=== PATIENT | female | born 1945 | race Caucasian/White ===

== ENCOUNTER → 2017-08-23 | Outpatient (CLI) | payer MEDICARE, MEDICAID ==
[~2017-08-23] MED LIST: AVAPRO300 MG PO; BENICAR20 MG PO; CALCITRIOL0.25 MCG PO; CELEXA 20 MG TA20 MG PO; DIALYVITE V5000 UNIT PO; DOXYCYCLINE 10100 M1 PO; DOXYCYCLINE 10100 MG PO; FENOFIBRATE200 MG PO; JANUVIA25 MG PO; LABETALOL 100100 MG PO; LASIX 40 MG TAB40 M2 PO; LEVEMIR SUBQ; LIPITOR10 MG PO; MYFORTIC PO; MYFORTIC360 MG PO; NOVOLOG100 UNIT/1 SUBQ; PREDNISONE 10 M10 MG PO; RAPAMUNE1 MG PO; RAPAMUNE2 MG PO; RENVELA800 MG PO; ROCALTROL0.25 MCG PO; VENLAFAXIN75 MG/1 T2 PO; VITAMIN D1000 UNI1 PO; ZANTAC 150MG T150 M1 PO; ZETIA10 MG PO
[2017-08-23 09:41] LABS: HEMATOCRIT 31.7 % (37.0-47.0); HEMOGLOBIN 10.4 gm/dL (12.0-15.0)
[2017-08-23 09:54] LABS: ALBUMIN 3.3 g/dL (3.4-5.0); CALCIUM 8.7 mg/dL (8.5-10.1); CREATININE 1.9 mg/dL (0.6-1.3); MAGNESIUM 2.1 mg/dL (1.8-2.4); PHOSPHORUS* 3.5 mg/dL (2.5-4.9); POTASSIUM 3.6 mmol/L (3.5-5.1); TOTAL BILIRUBIN 0.3 mg/dL (<0.1-1.0); TOTAL PROTEIN 6.8 g/dL (6.4-8.2)
[2017-08-23 10:42] VITALS: BP 157/72
== END ==
LOC: M.INFUS 09:00
PROVIDERS: Internal Medicine Nephrology
DX: N18.4 Chronic kidney disease, stage 4 (severe) (principal); D63.1 Anemia in chronic kidney disease

== ENCOUNTER → 2017-09-14 | Outpatient (CLI) | payer MEDICARE, MEDICAID ==
[2017-09-14 09:00] VITALS: BP 160/71
--- NOTE | 2017-09-14 10:49 | NUR ---
ARRIVED PER WHEELCHAIR. STAYED IN WHEELCHAIR FOR APPOINTMENT. DAUGHTER AT CHAIRSIDE. DENEIS ADVERSE REACTION TO PRIOR INJECTION OF SAME. MONTHLY LAB RESULTS REVIEWED AND SAME DOSE LAST ONE GIVEN 7,500 GIVEN. INJECTION TOLERATED WELL. DENEIS NEEDS AT DISCHARGE.
== END ==
LOC: M.INFUS 02:50
DX: N18.4 Chronic kidney disease, stage 4 (severe) (principal); D63.1 Anemia in chronic kidney disease

== ENCOUNTER → 2017-10-25 | Outpatient (CLI) | payer MEDICARE, MEDICAID ==
--- NOTE | 2017-10-25 09:24 | NUR ---
ARRIVED PER W/CHAIR. ACCOMPANIED BY DAUGHTER. STAYED IN WHEELCHAIR FOR APPOINTMENT. DENIES ADVERSE REACTION TO PRIOR INJECTION OF SAME. LAB RESULTS COLLECTED AND REVIEWED. PT TO RECEIVE SAME DOSE LAST PROCRIT INJECTION 7,500 GIVEN. PROCRIT INJECTED INTO RIGHT BACK PART OF DELTOID. INJECTION TOLERATED WELL. DENIES NEEDS AT DISCHARGE.
[2017-10-25 09:30] VITALS: BP 160/66
[2017-10-25 09:50] LABS: HEMOGLOBIN 10.4 gm/dL (12.0-15.0)
[2017-10-25 10:11] LABS: ALBUMIN 3.3 g/dL (3.4-5.0); ALKALINE PHOSPHATASE 46 U/L (46-116); ANION GAP 11 mmol/L (7-16); BUN 70 mg/dL (7-18); CALCIUM 8.4 mg/dL (8.5-10.1); CHLORIDE 105 mmol/L (98-107); CHOLESTEROL 214 mg/dL (<200); CO2 25 mmol/L (21-32); CREATININE 2.3 mg/dL (0.6-1.3); GLUCOSE 236 mg/dL (70-99); HDL CHOLESTEROL 61 mg/dL (>40); LDL CHOLESTEROL 119 mg/dL (<100); MAGNESIUM 2.3 mg/dL (1.8-2.4); PHOSPHORUS* 4.1 mg/dL (2.5-4.9); POTASSIUM 3.9 mmol/L (3.5-5.1); SERUM ASSESSMENT Clear; SGOT 17 U/L (15-37); SGPT 21 U/L (30-65); SODIUM 141 mmol/L (136-145); TC:HDL 3.5 Ratio (Not establshd); TOTAL BILIRUBIN 0.3 mg/dL (<0.1-1.0); TOTAL PROTEIN 6.5 g/dL (6.4-8.2); TRIGLYCERIDE 173 mg/dL (<150); URIC ACID* 7.9 mg/dL (2.6-7.2); VLDL 35 mg/dL (<40)
[2017-10-25 10:21] LABS: % SATURATION 20 % (20-39); IRON 49 ug/dL (50-175)
[2017-10-25 17:13] LABS: eGFR IF AFRICAN AMERICAN 29 (>59)
[2017-10-25 19:08] LABS: GLYCOHEMOGLOBIN (HGB A1C) 8.5 % (4.8-5.6)
[2017-10-25 21:10] LABS: PARATHYROID HORMONE 127 pg/mL (15-65)
== END ==
LOC: M.INFUS 04:36
PROVIDERS: Internal Medicine Nephrology
DX: N18.4 Chronic kidney disease, stage 4 (severe) (principal); D63.1 Anemia in chronic kidney disease; E55.9 Vitamin D deficiency, unspecified; N25.81 Secondary hyperparathyroidism of renal origin; E09.9 Drug or chemical induced diabetes mellitus without complications; Z94.0 Kidney transplant status

== ENCOUNTER → 2017-11-15 | Outpatient (CLI) | payer MEDICARE, MEDICAID ==
[2017-11-15 09:32] VITALS: BP 151/70
--- NOTE | 2017-11-15 11:16 | NUR ---
ARRIVED PER WHEELCHAIR. MADE SELF COMFORTABLE. NO LABS NEED AT THIS TIME. INJECTION OF 7,500 UNITS INJECTED SQ TO LEFT UPPER ARM. TOLERATED WELL. ANGIE QUESTIONS OR NEEDS AT DISCHARGE.
== END ==
LOC: M.INFUS 06:01
DX: N18.4 Chronic kidney disease, stage 4 (severe) (principal); D63.1 Anemia in chronic kidney disease

== ENCOUNTER → 2017-12-07 | Outpatient (CLI) | payer MEDICARE, MEDICAID ==
[2017-12-07 09:36] VITALS: BP 134/88
[2017-12-07 10:20] LABS: HEMATOCRIT 32.9 % (37.0-47.0); HEMOGLOBIN 10.7 gm/dL (12.0-15.0)
[2017-12-07 10:33] LABS: ALBUMIN 3.3 g/dL (3.4-5.0); CALCIUM 9.2 mg/dL (8.5-10.1); CREATININE 2.1 mg/dL (0.6-1.3); MAGNESIUM 2.1 mg/dL (1.8-2.4); PHOSPHORUS* 3.9 mg/dL (2.5-4.9); TOTAL BILIRUBIN 0.3 mg/dL (<0.1-1.0); TOTAL PROTEIN 6.8 g/dL (6.4-8.2)
== END ==
LOC: M.INFUS 03:11
PROVIDERS: Internal Medicine Nephrology
DX: N18.4 Chronic kidney disease, stage 4 (severe) (principal); D63.1 Anemia in chronic kidney disease

== ENCOUNTER → 2017-12-28 | Outpatient (CLI) | payer MEDICARE, MEDICAID ==
[2017-12-28 09:55] VITALS: BP 127/65
--- NOTE | 2017-12-28 11:27 | NUR ---
ARRIVED PER WHEELCHAIR. STAYED IN WHEELCHAIR FOR INJECTION. DENIES ADVERSE REACTION TO PRIOR INJECTIONS OF SAME. NO LABS NEEDED CONTINUE SAME DOSE LAST ONE OF 7,500. INJECTION COMPLETED AND TOLERATED WELL. DENIES NEEDS AT DISCHARGE.
== END ==
LOC: M.INFUS 01:27
DX: N18.5 Chronic kidney disease, stage 5 (principal); D63.1 Anemia in chronic kidney disease

== ENCOUNTER → 2018-01-11 | Outpatient (CLI) | payer MEDICARE, MEDICAID ==
[2018-01-11 09:32] VITALS: BP 178/76
--- NOTE | 2018-01-11 09:40 | NUR ---
ARRIVED TO OUTPT INFUSION AREA VIA W/C PER FAMILY. SETTLED INTO ROOM. VS OBTAINED. TO BATHROOM VIA W/C, URINE SAMPLE COLLECTED PER PT. AWAITING LABS TO BE DRAWN.
[2018-01-11 09:59] LABS: HEMOGLOBIN 10.8 gm/dL (12.0-15.0)
[2018-01-11 10:12] LABS: ANION GAP 10 mmol/L (7-16); BUN 53 mg/dL (7-18); CALCIUM 8.7 mg/dL (8.5-10.1); CHLORIDE 105 mmol/L (98-107); CO2 28 mmol/L (21-32); CREATININE 2.1 mg/dL (0.6-1.3); GLUCOSE 123 mg/dL (70-99); POTASSIUM 3.5 mmol/L (3.5-5.1); SODIUM 143 mmol/L (136-145)
[2018-01-11 10:16] LABS: ALBUMIN 3.3 g/dL (3.4-5.0); ALKALINE PHOSPHATASE 40 U/L (46-116); CHOLESTEROL 203 mg/dL (<200); HDL CHOLESTEROL 57 mg/dL (>40); LDL CHOLESTEROL 119 mg/dL (<100); PHOSPHORUS* 3.7 mg/dL (2.5-4.9); SERUM ASSESSMENT Clear; SGOT 17 U/L (15-37); SGPT 18 U/L (30-65); TC:HDL 3.6 Ratio (Not establshd); TOTAL BILIRUBIN 0.3 mg/dL (<0.1-1.0); TOTAL PROTEIN 6.7 g/dL (6.4-8.2); TRIGLYCERIDE 135 mg/dL (<150); URIC ACID* 6.9 mg/dL (2.6-7.2); VLDL 27 mg/dL (<40)
[2018-01-11 10:26] LABS: % SATURATION 35 % (20-39); IRON 80 ug/dL (50-175)
--- NOTE | 2018-01-11 10:35 | NUR ---
LABS REVIEWED. PROCRIT ADMINISTERED TO RIGHT UPPER ARM WITHOUT DIFFICULTY. DISMISSED HOME IN GOOD CONDITION VIA W/C WITH FAMILY.
[2018-01-11 16:10] LABS: eGFR IF AFRICAN AMERICAN 29 (>59)
[2018-01-12 02:07] LABS: GLYCOHEMOGLOBIN (HGB A1C) 8.8 % (4.8-5.6)
[2018-01-12 13:10] LABS: PARATHYROID HORMONE 132 pg/mL (15-65)
== END ==
LOC: M.INFUS 06:02
PROVIDERS: Internal Medicine Nephrology
DX: N18.4 Chronic kidney disease, stage 4 (severe) (principal); D63.1 Anemia in chronic kidney disease; E55.9 Vitamin D deficiency, unspecified; E09.9 Drug or chemical induced diabetes mellitus without complications

== ENCOUNTER → 2018-01-31 | Outpatient (CLI) | payer MEDICARE, MEDICAID ==
[2018-01-31 09:33] LABS: HEMATOCRIT 31.8 % (37.0-47.0); HEMOGLOBIN 10.5 gm/dL (12.0-15.0)
[2018-01-31 09:52] LABS: CALCIUM 8.8 mg/dL (8.5-10.1); CREATININE 2.2 mg/dL (0.6-1.3); POTASSIUM 3.9 mmol/L (3.5-5.1)
[2018-01-31 09:55] VITALS: BP 172/68
[2018-01-31 09:56] LABS: ALBUMIN 3.1 g/dL (3.4-5.0); MAGNESIUM 2.2 mg/dL (1.8-2.4); PHOSPHORUS* 4.3 mg/dL (2.5-4.9); TOTAL BILIRUBIN 0.3 mg/dL (<0.1-1.0); TOTAL PROTEIN 6.5 g/dL (6.4-8.2)
--- NOTE | 2018-01-31 10:03 | NUR ---
PATIENT HERE FOR LABS/PROCRIT INJECTION. LABS DRAWN FOR MONTH. HGB 10.5. PROCRIT 7500 UNITS ADMINISTERED L UPPER ARM. SITE IS TENDER ON INJECTION BUT PATIENT TOLERATED WELL. DISCHARGED TO HOME WITH GREGOR.
== END ==
LOC: M.INFUS 05:57
PROVIDERS: Internal Medicine Nephrology
DX: N18.4 Chronic kidney disease, stage 4 (severe) (principal); D63.1 Anemia in chronic kidney disease; N25.81 Secondary hyperparathyroidism of renal origin; E55.9 Vitamin D deficiency, unspecified; E78.5 Hyperlipidemia, unspecified; E09.9 Drug or chemical induced diabetes mellitus without complications; Z94.0 Kidney transplant status

== ENCOUNTER → 2018-02-23 | Outpatient (CLI) | payer MEDICARE, MEDICAID ==
[2018-02-23 09:03] VITALS: BP 162/68
--- NOTE | 2018-02-23 09:03 | NUR ---
PT ARRIVED VIA W/CHAIR. ACCOMPANIED BY GRANDDAUGHTERS. HERE FOR PROCRIT INJECTION. LAST HBG WAS 10.5 ON 01/31/18. PT TO RECEIVE SAME DOSE OF PROCRIT 7500 UNITS IM INJECTION. PROCRIT 7500 UNITS ADMINISTERED TO LEFT UPPER ARM. SITE IS TENDER FROM INJECTION BUT PT TOLERATED WELL. DENIES NEEDS OR QUESTIONS AT DISCHARGE. DISCHARGE HOME TO SELF CARE WITH GRANDDAUGHTERS.
== END ==
LOC: M.INFUS 06:01
DX: N18.4 Chronic kidney disease, stage 4 (severe) (principal); D63.1 Anemia in chronic kidney disease

== ENCOUNTER → 2018-03-08 | Outpatient (CLI) | payer MEDICARE, MEDICAID ==
[2018-03-08 09:39] LABS: HEMATOCRIT 33.6 % (37.0-47.0)
[2018-03-08 09:57] LABS: ALBUMIN 3.1 g/dL (3.4-5.0); CALCIUM 8.8 mg/dL (8.5-10.1); CREATININE 2.4 mg/dL (0.6-1.3); MAGNESIUM 2.2 mg/dL (1.8-2.4); PHOSPHORUS* 4.3 mg/dL (2.5-4.9); POTASSIUM 3.8 mmol/L (3.5-5.1); TOTAL BILIRUBIN 0.3 mg/dL (<0.1-1.0); TOTAL PROTEIN 6.7 g/dL (6.4-8.2)
--- NOTE | 2018-03-08 10:49 | NUR ---
ARIVED PER WHEELCHAIR. STAYED IN WHEELCHAIR. MONTHLY LABS DRAW. LAB RESULTS EVALUATED AND HGB NOTED TO BE 11. PER STANDING ORDER PROCRIT HELD. PT UPDATED. VOICED UNDERSTANDING ADN AGREED. DENEIS QUESTIONS OR NEEDS AT DICHARGE.
== END ==
LOC: M.INFUS 03:44
PROVIDERS: Internal Medicine Nephrology
DX: N18.4 Chronic kidney disease, stage 4 (severe) (principal)

== ENCOUNTER → 2018-04-11 | Outpatient (CLI) | payer MEDICARE, MEDICAID ==
[2018-04-11 09:53] LABS: HEMATOCRIT 31.1 % (37.0-47.0); HEMOGLOBIN 10.3 gm/dL (12.0-15.0)
[2018-04-11 10:07] LABS: ALBUMIN 3.3 g/dL (3.4-5.0); ALKALINE PHOSPHATASE 36 U/L (46-116); ANION GAP 10 mmol/L (7-16); BUN 77 mg/dL (7-18); CALCIUM 8.1 mg/dL (8.5-10.1); CHLORIDE 105 mmol/L (98-107); CHOLESTEROL 204 mg/dL (<200); CO2 24 mmol/L (21-32); CREATININE 2.6 mg/dL (0.6-1.3); GLUCOSE 132 mg/dL (70-99); HDL CHOLESTEROL 58 mg/dL (>40); LDL CHOLESTEROL 123 mg/dL (<100); MAGNESIUM 2.1 mg/dL (1.8-2.4); PHOSPHORUS* 4.2 mg/dL (2.5-4.9); POTASSIUM 3.8 mmol/L (3.5-5.1); SGOT 18 U/L (15-37); SGPT 16 U/L (30-65); SODIUM 139 mmol/L (136-145); TC:HDL 3.5 Ratio (Not establshd); TOTAL BILIRUBIN 0.3 mg/dL (<0.1-1.0); TOTAL PROTEIN 6.8 g/dL (6.4-8.2); TRIGLYCERIDE 119 mg/dL (<150); VLDL 24 mg/dL (<40)
[2018-04-11 10:08] VITALS: BP 154/72
[2018-04-11 10:08] LABS: SERUM ASSESSMENT Clear
[2018-04-11 10:42] LABS: % SATURATION 34 % (20-39); IRON 84 ug/dL (50-175)
--- NOTE | 2018-04-11 13:31 | NUR ---
LABS DRAWN AND RESULTS EVALUATED. PER TITRATION ORDER SAME DOSE OF PROCRIT NEEDED WAS LAST GIVEN. INJECTION COMPLETED AND TOELRTATED WELL. 7,500 UNITS DENEIS NEEDS AT DISHCARGE.
[2018-04-11 17:12] LABS: eGFR IF AFRICAN AMERICAN 21 (>59)
[2018-04-12 02:06] LABS: GLYCOHEMOGLOBIN (HGB A1C) 8.2 % (4.8-5.6)
[2018-04-12 05:10] LABS: PARATHYROID HORMONE 137 pg/mL (15-65)
== END ==
LOC: M.INFUS 03:26
PROVIDERS: Internal Medicine Nephrology
DX: N18.4 Chronic kidney disease, stage 4 (severe) (principal); D63.1 Anemia in chronic kidney disease; E09.9 Drug or chemical induced diabetes mellitus without complications; E78.5 Hyperlipidemia, unspecified; E55.9 Vitamin D deficiency, unspecified; N25.81 Secondary hyperparathyroidism of renal origin; Z94.0 Kidney transplant status

== ENCOUNTER → 2018-05-09 | Outpatient (CLI) | payer MEDICARE, MEDICAID ==
[2018-05-09 09:23] LABS: HEMOGLOBIN 9.9 gm/dL (12.0-15.0)
[2018-05-09 09:58] LABS: ALBUMIN 3.2 g/dL (3.4-5.0); CALCIUM 8.3 mg/dL (8.5-10.1); CREATININE 2.4 mg/dL (0.6-1.3); PHOSPHORUS* 4.3 mg/dL (2.5-4.9); POTASSIUM 3.5 mmol/L (3.5-5.1); TOTAL BILIRUBIN 0.3 mg/dL (<0.1-1.0); TOTAL PROTEIN 6.7 g/dL (6.4-8.2)
[2018-05-09 10:01] VITALS: BP 132/84
--- NOTE | 2018-05-09 11:23 | NUR ---
DENIES ADVERSE REACTION TO PRIOR INJECTION OF THE SAME. LABS DRAWN AND EVALUATED. INJECTION COMPLETED AND TOLERATED WELL. DENIES NEEDS AT DISCHARGE.
== END ==
LOC: M.INFUS 05:11
PROVIDERS: Internal Medicine Nephrology
DX: N18.4 Chronic kidney disease, stage 4 (severe) (principal); D63.1 Anemia in chronic kidney disease

== ENCOUNTER → 2018-05-23 | Outpatient (CLI) | payer MEDICARE, MEDICAID ==
[2018-05-23 09:15] VITALS: BP 164/67
--- NOTE | 2018-05-23 11:45 | NUR ---
PATIENT GIVEN INECTION IN RIGHT ARM SUB-Q. TOLERATED WELL.
== END ==
LOC: M.INFUS 03:51
DX: N18.4 Chronic kidney disease, stage 4 (severe) (principal); D63.1 Anemia in chronic kidney disease

== ENCOUNTER → 2018-06-20 | Outpatient (CLI) | payer MEDICARE, MEDICAID ==
[2018-06-20 09:40] VITALS: BP 141/53
[2018-06-20 10:08] LABS: ALBUMIN 3.1 g/dL (3.4-5.0); ALKALINE PHOSPHATASE 41 U/L (46-116); ANION GAP 9 mmol/L (7-16); BUN 54 mg/dL (7-18); CALCIUM 8.8 mg/dL (8.5-10.1); CHLORIDE 106 mmol/L (98-107); CHOLESTEROL 202 mg/dL (<200); CO2 23 mmol/L (21-32); CREATININE 2.1 mg/dL (0.6-1.3); GLUCOSE 126 mg/dL (70-99); HDL CHOLESTEROL 64 mg/dL (>40); LDL CHOLESTEROL 114 mg/dL (<100); MAGNESIUM 2.1 mg/dL (1.8-2.4); POTASSIUM 3.6 mmol/L (3.5-5.1); SGOT 16 U/L (15-37); SGPT 18 U/L (30-65); SODIUM 138 mmol/L (136-145); TC:HDL 3.2 Ratio (Not establshd); TOTAL BILIRUBIN 0.3 mg/dL (<0.1-1.0); TOTAL PROTEIN 6.4 g/dL (6.4-8.2); TRIGLYCERIDE 124 mg/dL (<150); URIC ACID* 6.8 mg/dL (2.6-7.2); VLDL 25 mg/dL (<40)
[2018-06-20 10:13] LABS: SERUM ASSESSMENT Clear
[2018-06-20 10:36] LABS: % SATURATION 32 % (20-39); IRON 76 ug/dL (50-175)
--- NOTE | 2018-06-20 11:47 | NUR ---
ARRIVED PER WHEELCHAIR. STAYED IN WHEELCHAIR. MONTHLY LABS DRAWN. HGB RESULTS EVALUATED AND PER STANDING ORDER NEED TO INCREASE DOSE BY 25%. PT UDATED. VOICED UNDERSTANDING AND AGREED. INJECTEION OF 9,375 UNITS COMPLETED AND TOELRATED WELL. DENIES NEEDS AT DISHCARGE.
[2018-06-20 19:09] LABS: eGFR IF AFRICAN AMERICAN 28 (>59)
[2018-06-20 21:10] LABS: GLYCOHEMOGLOBIN (HGB A1C) 7.9 % (4.8-5.6)
[2018-06-21 09:12] LABS: PARATHYROID HORMONE 77 pg/mL (15-65)
== END ==
LOC: M.INFUS 02:08
PROVIDERS: Internal Medicine Nephrology
DX: N18.4 Chronic kidney disease, stage 4 (severe) (principal); D63.1 Anemia in chronic kidney disease; Z79.899 Other long term (current) drug therapy; Z94.0 Kidney transplant status

== ENCOUNTER → 2018-07-11 | Outpatient (CLI) | payer MEDICARE, MEDICAID ==
[2018-07-11 09:15] VITALS: BP 145/80
[2018-07-11 09:16] LABS: HEMATOCRIT 31.6 % (37.0-47.0); HEMOGLOBIN 10.2 gm/dL (12.0-15.0)
[2018-07-11 09:28] LABS: ALBUMIN 3.1 g/dL (3.4-5.0); CALCIUM 8.8 mg/dL (8.5-10.1); CREATININE 2.3 mg/dL (0.6-1.3); PHOSPHORUS* 4.4 mg/dL (2.5-4.9); POTASSIUM 3.8 mmol/L (3.5-5.1); TOTAL BILIRUBIN 0.3 mg/dL (<0.1-1.0); TOTAL PROTEIN 6.3 g/dL (6.4-8.2)
--- NOTE | 2018-07-11 10:09 | NUR ---
ARRIVED PER WHEELCHAIR. STAYED IN WHEELCHAIR. MONTHLY LABS DRAWN PER STANDING ORDER. RESULTS EVALUATED AND PT MEETS CRITERIA FOR INJECTION [place] PROCRIT 9,375 UNITS. INJECTION COMPLETED AND TOLERATED WELL. DENIES QUESTIONS OR NEEDS AT DISCHARGE.
== END ==
LOC: M.INFUS 04:56
PROVIDERS: Internal Medicine Nephrology
DX: N18.4 Chronic kidney disease, stage 4 (severe) (principal); D63.1 Anemia in chronic kidney disease

== ENCOUNTER → 2018-07-30 | Outpatient (CLI) | payer MEDICARE, MEDICAID ==
--- NOTE | 2018-07-30 09:15 | NUR ---
PATIENT ARRIVAL FROM HOME ACCOMPANIED BY GRANDDAUGHTER TO OP INFUSION LAB. HISTORY AND ORDERS REVIEWED. REASSESSMENT AND VS OBTAINED. CONTACTED DR. DAMON OFFICE AND SPOKE WITH OFFICE NURSE, ELLEN. REQUESTED TO CONTINUE CURRENT ORDERS FOR PROCRIT. ORDERS OBTAINED TO DRAW LABS FOR TODAY AND CALL OFFICE BACK WITH RESULTS.
[2018-07-30 09:25] VITALS: BP 164/86
[2018-07-30 09:41] LABS: HEMATOCRIT 31.7 % (37.0-47.0); HEMOGLOBIN 10.4 gm/dL (12.0-15.0)
[2018-07-30 09:50] LABS: ALBUMIN 3.2 g/dL (3.4-5.0); CREATININE 2.2 mg/dL (0.6-1.3); MAGNESIUM 2.2 mg/dL (1.8-2.4); PHOSPHORUS* 4.2 mg/dL (2.5-4.9); POTASSIUM 3.8 mmol/L (3.5-5.1); TOTAL BILIRUBIN 0.3 mg/dL (<0.1-1.0); TOTAL PROTEIN 6.4 g/dL (6.4-8.2)
--- NOTE | 2018-07-30 10:05 | NUR ---
LAB RESULTS FROM TODAYS DRAW FAXED TO DR. DAMON OFFICE. OFFICE THEN CALLED AND SPOKE WITH ELLEN. ORDERS RECEIVED TO CONTINUE LAST DOSE OF PROCRIT OF 9375UNITS. OFFICE NURSE STATES SHE WILL FAX NEW ORDERS TO US TODAY.
--- NOTE | 2018-07-30 10:18 | NUR ---
PROCRIT DOSE GIVEN ORDERED. PATIENT DEPARTS FOR HOME BY W/C WITH GRANDDAUGHTER AT 1018.
== END ==
LOC: M.INFUS 02:38
PROVIDERS: Internal Medicine Nephrology
DX: N18.4 Chronic kidney disease, stage 4 (severe) (principal); D63.1 Anemia in chronic kidney disease

== ENCOUNTER → 2018-08-23 | Outpatient (CLI) | payer MEDICARE, MEDICAID ==
[2018-08-23 10:11] LABS: ABSOLUTE BASOPHILS 0.1 thou/uL (0.0-0.2); ABSOLUTE EOSINOPHILS 0.2 thou/uL (0.0-0.7); ABSOLUTE LYMPHOCYTES 1.7 thou/uL (0.8-5.3); ABSOLUTE MONOCYTES 0.6 thou/uL (0.0-1.2); ABSOLUTE NEUTROPHILS 4.2 thou/uL (1.6-8.1); BASOPHILS 0.9 %; HEMOGLOBIN 10.1 gm/dL (12.0-15.0); LYMPHOCYTES 25.7 %; MCH 27.9 pg (26.0-34.0); MCHC 32.6 g/dL (28.0-37.0); MCV 85.6 fL (80.0-100.0); MONOCYTES 8.7 %; MPV 8.7 fl. (7.2-11.1); NUCLEATED RBCS 0 /100WBC; PLATELET COUNT* 272 thou/uL (150-400); POLYS 61.7 %; RBC 3.62 mil/uL (4.20-5.00); RDW-CV 14.4 % (10.5-14.5); WBC 6.8 thou/uL (4.0-11.0)
[2018-08-23 10:24] LABS: ALBUMIN 3.1 g/dL (3.4-5.0); CALCIUM 8.7 mg/dL (8.5-10.1); CREATININE 2.2 mg/dL (0.6-1.3); MAGNESIUM 2.1 mg/dL (1.8-2.4); PHOSPHORUS* 4.3 mg/dL (2.5-4.9); POTASSIUM 3.6 mmol/L (3.5-5.1); TOTAL BILIRUBIN 0.3 mg/dL (<0.1-1.0); TOTAL PROTEIN 6.3 g/dL (6.4-8.2)
[2018-08-23 10:30] VITALS: BP 141/82
--- NOTE | 2018-08-23 11:40 | NUR ---
ARRIVED PER WHEELCHAIR AND STAYED IN CHAIR. MONTHLY LABS DRAWN PER STANDING ORDER. RESULTS EVLUATED AND CRITERIA MET FOR PROCRIT INJECTION. PROCCRIT GIVEN AND TOLERATED WELL. DENIES ADVERSE REACTION TO PRIRO INJECTION OF SAME. DENEIS NEEDS OR QUESTIONS AT DISCHARGE.
== END ==
LOC: M.INFUS 09:30
PROVIDERS: Nurse Practitioner Family
DX: N18.4 Chronic kidney disease, stage 4 (severe) (principal); D63.1 Anemia in chronic kidney disease

== ENCOUNTER → 2018-09-13 | Outpatient (CLI) | payer MEDICARE, MEDICAID ==
[2018-09-13 08:35] VITALS: BP 172/70
--- NOTE | 2018-09-13 09:00 | NUR ---
DENEIS ADVERSE REACTION TO MULTIPLE PRIOR INJECTIONS OF SAME. INJECTION COMPLETED AND TOLERATED WELL. DENIES QUESTIONS OR NEEDS AT DISCHARGE.
== END ==
LOC: M.INFUS 05:14
DX: N18.4 Chronic kidney disease, stage 4 (severe) (principal); D63.1 Anemia in chronic kidney disease; Z79.899 Other long term (current) drug therapy; Z94.0 Kidney transplant status

== ENCOUNTER → 2018-10-11 | Outpatient (CLI) | payer MEDICARE, MEDICAID ==
[2018-10-11 09:15] VITALS: BP 132/75
[2018-10-11 09:18] LABS: ABSOLUTE EOSINOPHILS 0.3 thou/uL (0.0-0.7); ABSOLUTE LYMPHOCYTES 1.6 thou/uL (0.8-5.3); ABSOLUTE MONOCYTES 0.6 thou/uL (0.0-1.2); ABSOLUTE NEUTROPHILS 5.4 thou/uL (1.6-8.1); BASOPHILS 0.5 %; EOSINOPHILS 3.6 %; HEMATOCRIT 30.8 % (37.0-47.0); HEMOGLOBIN 10.6 gm/dL (12.0-15.0); LYMPHOCYTES 20.3 %; MCH 29.1 pg (26.0-34.0); MCHC 34.4 g/dL (28.0-37.0); MCV 84.6 fL (80.0-100.0); MONOCYTES 7.9 %; MPV 9.3 fl. (7.2-11.1); NUCLEATED RBCS 0 /100WBC; PLATELET COUNT* 267 thou/uL (150-400); POLYS 67.7 %; RBC 3.64 mil/uL (4.20-5.00); RDW-CV 13.9 % (10.5-14.5); WBC 7.9 thou/uL (4.0-11.0)
[2018-10-11 09:33] LABS: CALCIUM 8.9 mg/dL (8.5-10.1); CREATININE 2.8 mg/dL (0.6-1.3); TOTAL BILIRUBIN 0.3 mg/dL (<0.1-1.0); TOTAL PROTEIN 6.7 g/dL (6.4-8.2)
== END ==
LOC: M.INFUS 05:02
PROVIDERS: Transplant Surgery
DX: N18.4 Chronic kidney disease, stage 4 (severe) (principal); D63.1 Anemia in chronic kidney disease; Z79.899 Other long term (current) drug therapy; Z94.0 Kidney transplant status

== ENCOUNTER → 2018-10-31 | Outpatient (CLI) | payer MEDICARE, MEDICAID ==
[2018-10-31 09:20] VITALS: BP 142/74
== END ==
LOC: M.INFUS 05:29
DX: N18.4 Chronic kidney disease, stage 4 (severe) (principal); D63.1 Anemia in chronic kidney disease

== ENCOUNTER → 2018-11-21 | Outpatient (CLI) | payer MEDICARE, MEDICAID ==
[2018-11-21 09:15] VITALS: BP 153/70
[2018-11-21 09:37] LABS: HEMOGLOBIN 9.8 gm/dL (12.0-15.0)
[2018-11-21 09:54] LABS: ALBUMIN 3.2 g/dL (3.4-5.0); CALCIUM 8.6 mg/dL (8.5-10.1); CREATININE 2.4 mg/dL (0.6-1.3); PHOSPHORUS* 4.1 mg/dL (2.5-4.9); POTASSIUM 3.7 mmol/L (3.5-5.1); TOTAL BILIRUBIN 0.3 mg/dL (<0.1-1.0); TOTAL PROTEIN 6.5 g/dL (6.4-8.2)
[2018-11-21 10:30] VITALS: BP 148/66
== END ==
LOC: M.INFUS 05:40
PROVIDERS: Internal Medicine Nephrology
DX: N18.4 Chronic kidney disease, stage 4 (severe) (principal); D63.1 Anemia in chronic kidney disease

== ENCOUNTER → 2018-12-13 | Outpatient (CLI) | payer MEDICARE, MEDICAID ==
[2018-12-13 09:50] VITALS: BP 151/69
== END ==
LOC: M.INFUS 04:37
DX: D63.1 Anemia in chronic kidney disease (principal); N18.4 Chronic kidney disease, stage 4 (severe)

== ENCOUNTER → 2019-01-02 | Outpatient (CLI) | payer MEDICARE, MEDICAID ==
[2019-01-02 09:20] VITALS: BP 132/71
[2019-01-02 10:21] LABS: HEMATOCRIT 31.9 % (37.0-47.0); HEMOGLOBIN 10.4 gm/dL (12.0-15.0); MCH 27.4 pg (26.0-34.0); MCHC 32.6 g/dL (28.0-37.0); RBC 3.8 mil/uL (4.20-5.00); RDW-CV 14.5 % (10.5-14.5); WBC 6.3 thou/uL (4.0-11.0)
[2019-01-02 10:28] LABS: ALBUMIN 3.3 g/dL (3.4-5.0); CALCIUM 9.1 mg/dL (8.5-10.1); CREATININE 2.3 mg/dL (0.6-1.3); MAGNESIUM 2.1 mg/dL (1.8-2.4); PHOSPHORUS* 4.5 mg/dL (2.5-4.9); POTASSIUM 3.6 mmol/L (3.5-5.1); TOTAL BILIRUBIN 0.3 mg/dL (<0.1-1.0); TOTAL PROTEIN 6.7 g/dL (6.4-8.2)
== END ==
LOC: M.INFUS 05:33
PROVIDERS: Internal Medicine Nephrology
DX: N18.4 Chronic kidney disease, stage 4 (severe) (principal); D63.1 Anemia in chronic kidney disease

== ENCOUNTER → 2019-01-30 | Outpatient (CLI) | payer MEDICARE, MEDICAID ==
[2019-01-30 09:05] VITALS: BP 165/75
[2019-01-30 09:33] LABS: HEMATOCRIT 31.6 % (37.0-47.0); HEMOGLOBIN 10.4 gm/dL (12.0-15.0)
[2019-01-30 09:58] VITALS: BP 156/70
== END ==
LOC: M.INFUS 05:20
PROVIDERS: Internal Medicine Nephrology
DX: N18.4 Chronic kidney disease, stage 4 (severe) (principal); D63.1 Anemia in chronic kidney disease

== ENCOUNTER → 2019-02-22 | Outpatient (CLI) | payer MEDICARE, MEDICAID ==
[2019-02-22 09:15] VITALS: BP 132/78
--- NOTE | 2019-02-22 10:21 | NUR ---
ARRIVED PER WHEELCHAIR. STAYED IN WHEELCHAIR WHILE HERE. NOT DURE FOR LABS YET. SAME DOSE LAST GIVED OF 12,000 UNITS GIVEN CONTINUED TODAY PER STANDING ORDER. SUB CUTANEOUS INJECTION COMPLETED AND TOLERATED WELL. DENIES QUESTIONS OR NEEDS AT DISCHARGE.
== END ==
LOC: M.INFUS 00:50
DX: N18.4 Chronic kidney disease, stage 4 (severe) (principal); D63.1 Anemia in chronic kidney disease

== ENCOUNTER → 2019-03-21 | Outpatient (CLI) | payer MEDICARE, MEDICAID ==
[2019-03-21 09:53] LABS: HEMATOCRIT 30.6 % (37.0-47.0); HEMOGLOBIN 9.9 gm/dL (12.0-15.0); MCH 26.6 pg (26.0-34.0); MCHC 32.2 g/dL (28.0-37.0); MCV 82.6 fL (80.0-100.0); RBC 3.7 mil/uL (4.20-5.00); RDW-CV 14.8 % (10.5-14.5); WBC 5.8 thou/uL (4.0-11.0)
[2019-03-21 10:00] VITALS: BP 132/84
[2019-03-21 10:02] LABS: ALBUMIN 3.2 g/dL (3.4-5.0); CALCIUM 8.6 mg/dL (8.5-10.1); CREATININE 2.6 mg/dL (0.6-1.3); MAGNESIUM 2.3 mg/dL (1.8-2.4); PHOSPHORUS* 4.6 mg/dL (2.5-4.9); POTASSIUM 3.8 mmol/L (3.5-5.1); TOTAL BILIRUBIN 0.3 mg/dL (<0.1-1.0); TOTAL PROTEIN 6.7 g/dL (6.4-8.2)
--- NOTE | 2019-03-21 10:20 | NUR ---
ARRIVED PER WHEELCHAIR. STAYED IN WHEELCHAIR FOR VISIT. LABS DRAWN AND RESULTS EVALUATED. HGB 9.9, PER STANDING ORDER CONTINUE SAME DOSE LAST GIVEN OF 12,000 UNITS. LAST INJECTION ON 02/22/19 WAS TAKEN INTO CONCIDERATION WITH DOSING. TOLERATED SUB Q INJECTION WELL. ANGIE QUESTIONS OR NEEDS AT DISCHARGE.
== END ==
LOC: M.INFUS 05:18
PROVIDERS: Internal Medicine
DX: N18.4 Chronic kidney disease, stage 4 (severe) (principal); D63.1 Anemia in chronic kidney disease

== ENCOUNTER → 2019-04-17 | Outpatient (CLI) | payer MEDICARE, MEDICAID ==
[2019-04-17 09:47] LABS: CHOLESTEROL 165 mg/dL (<200); HDL CHOLESTEROL 55 mg/dL (>40); LDL CHOLESTEROL 82 mg/dL (<100); TRIGLYCERIDE 142 mg/dL (<150); VLDL 28 mg/dL (<40)
[2019-04-17 09:48] LABS: SERUM ASSESSMENT Clear
[2019-04-17 10:20] VITALS: BP 132/75
== END ==
LOC: M.INFUS 05:24
PROVIDERS: Internal Medicine
DX: N18.4 Chronic kidney disease, stage 4 (severe) (principal); D63.1 Anemia in chronic kidney disease

== ENCOUNTER → 2019-05-06 | Outpatient (CLI) | payer MEDICARE, MEDICAID ==
[2019-05-06 08:55] VITALS: BP 163/89
--- NOTE | 2019-05-06 10:03 | NUR ---
ARRIVED PER WHEELCHAIR. STAYED IN CHAIR. LAST VISIT PT WAS UNABLE TO PROVIDE ORDERED URINE SAMPLE. IT WAS COLLECTED TODAY. NO OTHER LABS NEEDED. INJECTION OF SAME DOSE LAST GIVEN 12,000 UNITS COMPLETED AND TOLERATED WELL. DENIES NEEDS AT DISCHARGE.
== END ==
LOC: M.INFUS 01:55
DX: N18.4 Chronic kidney disease, stage 4 (severe) (principal); D63.1 Anemia in chronic kidney disease; Z79.899 Other long term (current) drug therapy; Z94.0 Kidney transplant status

== ENCOUNTER → 2019-05-22 | Outpatient (CLI) | payer MEDICARE, MEDICAID ==
[2019-05-22 09:00] VITALS: BP 166/69
[2019-05-22 09:06] LABS: ABSOLUTE BASOPHILS 0.1 thou/uL (0.0-0.2); ABSOLUTE EOSINOPHILS 0.2 thou/uL (0.0-0.7); ABSOLUTE LYMPHOCYTES 1.8 thou/uL (0.8-5.3); ABSOLUTE MONOCYTES 0.5 thou/uL (0.0-1.2); BASOPHILS 0.9 %; EOSINOPHILS 3.1 %; HEMATOCRIT 29.9 % (37.0-47.0); HEMOGLOBIN 9.8 gm/dL (12.0-15.0); LYMPHOCYTES 31.7 %; MCH 28.1 pg (26.0-34.0); MCV 85.2 fL (80.0-100.0); MONOCYTES 9.9 %; MPV 8.2 fl. (7.2-11.1); NUCLEATED RBCS 0 /100WBC; PLATELET COUNT* 223 thou/uL (150-400); POLYS 54.4 %; RDW-CV 15.2 % (10.5-14.5); WBC 5.5 thou/uL (4.0-11.0)
[2019-05-22 09:21] LABS: ALBUMIN 3.3 g/dL (3.4-5.0); CALCIUM 8.7 mg/dL (8.5-10.1); CREATININE 2.6 mg/dL (0.6-1.3); MAGNESIUM 2.1 mg/dL (1.8-2.4); PHOSPHORUS* 4.1 mg/dL (2.5-4.9); POTASSIUM 3.8 mmol/L (3.5-5.1); TOTAL BILIRUBIN 0.3 mg/dL (<0.1-1.0); TOTAL PROTEIN 6.5 g/dL (6.4-8.2)
--- NOTE | 2019-05-22 10:12 | NUR ---
ARRIVED PER WHEELCHAIR AND STAYED IN WHEELCHAIR FOR VISIT. DEBBY WITH HER. EVERY OTHER MONTH LABS DRAWN. RESULTS EVALUATED AND CRITERIA MET FOR INJECTION. PT REQUEST NOT TO INCREASE DOSE WITH LAB BEING 9.8. INJECTION COMPLETED AND TOLERATED WELL. DENIES NEEDS AT DISCHARGE.
== END ==
LOC: M.INFUS 04:48
PROVIDERS: Internal Medicine
DX: N18.4 Chronic kidney disease, stage 4 (severe) (principal); D63.1 Anemia in chronic kidney disease

== ENCOUNTER → 2019-06-07 | Outpatient (CLI) | payer MEDICARE, MEDICAID ==
[2019-06-07 09:10] VITALS: BP 132/74
--- NOTE | 2019-06-07 09:52 | NUR ---
ARRIVED PER WHEELCHAIR. STAYED IN WHEELCHAIR. MONTHLY LABS REVIEWED FROM 05/22/19. CONTINE SAME DOSE OF PROCRIT. INJECTION COMPLETED AND TOELRATED WELL. DENIES QUESTIONS OR NEEDS AT DISCHARGE.
== END ==
LOC: M.INFUS 06-05 09:30
DX: N18.4 Chronic kidney disease, stage 4 (severe) (principal); D63.1 Anemia in chronic kidney disease

== ENCOUNTER → 2019-06-26 | Outpatient (CLI) | payer MEDICARE, MEDICAID ==
[2019-06-26 09:30] VITALS: BP 176/68
[2019-06-26 09:46] LABS: CALCIUM 8.6 mg/dL (8.5-10.1); CREATININE 2.5 mg/dL (0.6-1.3); PHOSPHORUS* 4.9 mg/dL (2.5-4.9)
== END ==
LOC: M.INFUS 03:23
PROVIDERS: Internal Medicine Nephrology
DX: N18.4 Chronic kidney disease, stage 4 (severe) (principal); D63.1 Anemia in chronic kidney disease; N25.81 Secondary hyperparathyroidism of renal origin

== ENCOUNTER → 2019-07-17 | Outpatient (CLI) | payer MEDICARE, MEDICAID ==
[2019-07-17 08:50] VITALS: BP 163/87
--- NOTE | 2019-07-17 11:49 | NUR ---
ARRIVED PER WHEELCHAIR. NO LABS NEEDED PER STANDING ORDER. INJECTION COMPLETED AND TOLERATED WELL. DENIES QUESTIONS OR NEEDS AT DISCHARGE.
== END ==
LOC: M.INFUS 05:38
DX: N18.4 Chronic kidney disease, stage 4 (severe) (principal); D63.1 Anemia in chronic kidney disease; N25.81 Secondary hyperparathyroidism of renal origin

== ENCOUNTER → 2019-08-02 | Outpatient (CLI) | payer MEDICARE, MEDICAID ==
[2019-08-02 08:50] VITALS: BP 166/77
[2019-08-02 10:10] VITALS: BP 148/68
== END ==
LOC: M.INFUS 05:17
DX: N18.4 Chronic kidney disease, stage 4 (severe) (principal); D63.1 Anemia in chronic kidney disease

== ENCOUNTER → 2019-08-29 | Outpatient (CLI) | payer MEDICARE, MEDICAID ==
[2019-08-29 09:15] VITALS: BP 124/68
[2019-08-29 09:44] LABS: ABSOLUTE BASOPHILS 0.1 thou/uL (0.0-0.2); ABSOLUTE EOSINOPHILS 0.3 thou/uL (0.0-0.7); ABSOLUTE LYMPHOCYTES 1.6 thou/uL (0.8-5.3); ABSOLUTE MONOCYTES 0.4 thou/uL (0.0-1.2); BASOPHILS 1.1 %; EOSINOPHILS 3.5 %; HEMOGLOBIN 10.1 gm/dL (12.0-15.0); MCH 27.4 pg (26.0-34.0); MCHC 32.8 g/dL (28.0-37.0); MCV 83.7 fL (80.0-100.0); MONOCYTES 5.3 %; NUCLEATED RBCS 0 /100WBC; PLATELET COUNT* 222 thou/uL (150-400); POLYS 68.1 %; RDW-CV 15.8 % (10.5-14.5); WBC 7.3 thou/uL (4.0-11.0)
[2019-08-29 09:57] LABS: ALBUMIN 3.2 g/dL (3.4-5.0); ALKALINE PHOSPHATASE 49 U/L (46-116); ANION GAP 9 mmol/L (7-16); BUN 80 mg/dL (7-18); CALCIUM 7.9 mg/dL (8.5-10.1); CHLORIDE 106 mmol/L (98-107); CHOLESTEROL 188 mg/dL (<200); CO2 26 mmol/L (21-32); CREATININE 2.6 mg/dL (0.6-1.3); GLUCOSE 109 mg/dL (70-99); HDL CHOLESTEROL 54 mg/dL (>40); LDL CHOLESTEROL 103 mg/dL (<100); PHOSPHORUS* 4.5 mg/dL (2.5-4.9); POTASSIUM 4.5 mmol/L (3.5-5.1); SGOT 21 U/L (15-37); SGPT 23 U/L (30-65); SODIUM 141 mmol/L (136-145); TC:HDL 3.5 Ratio (Not establshd); TOTAL BILIRUBIN 0.3 mg/dL (<0.1-1.0); TOTAL PROTEIN 6.4 g/dL (6.4-8.2); TRIGLYCERIDE 157 mg/dL (<150); VLDL 31 mg/dL (<40)
[2019-08-29 09:58] LABS: SERUM ASSESSMENT Clear
--- NOTE | 2019-08-29 10:28 | NUR ---
ARRIVED PER WHEELCHAIR AND REMAINED IN WHEELCHAIR. LABS DRAWN ANDRESULTS EVALUATED. CRITERIA MET FOR PROCRIT INJECTION. INJECTION COMPLETED AND TOELRATED WELL. DENIES QUESTIONS OR NEEDS AT DISCHARGE.
== END ==
LOC: M.INFUS 09:00
PROVIDERS: Internal Medicine
DX: N18.4 Chronic kidney disease, stage 4 (severe) (principal); D63.1 Anemia in chronic kidney disease

== ENCOUNTER → 2019-09-17 | Outpatient (CLI) | payer MEDICARE, MEDICAID ==
[2019-09-17 09:10] VITALS: BP 135/74
== END ==
LOC: M.INFUS 03:38
DX: N18.4 Chronic kidney disease, stage 4 (severe) (principal); D63.1 Anemia in chronic kidney disease

== ENCOUNTER → 2019-10-11 | Outpatient (CLI) | payer MEDICARE, MEDICAID ==
[2019-10-11 10:15] VITALS: BP 158/82
== END ==
LOC: M.INFUS 03:33
DX: N18.4 Chronic kidney disease, stage 4 (severe) (principal); D63.1 Anemia in chronic kidney disease

== ENCOUNTER → 2019-11-29 | Outpatient (CLI) | payer MEDICARE, MEDICAID ==
[2019-11-29 10:14] LABS: ABSOLUTE EOSINOPHILS 0.2 thou/uL (0.0-0.7); ABSOLUTE LYMPHOCYTES 1.7 thou/uL (0.8-5.3); ABSOLUTE MONOCYTES 0.5 thou/uL (0.0-1.2); ABSOLUTE NEUTROPHILS 3.6 thou/uL (1.6-8.1); BASOPHILS 0.6 %; EOSINOPHILS 2.6 %; HEMATOCRIT 29.6 % (37.0-47.0); LYMPHOCYTES 28.9 %; MCH 28.1 pg (26.0-34.0); MCHC 33.7 g/dL (28.0-37.0); MCV 83.5 fL (80.0-100.0); MONOCYTES 8.1 %; MPV 8.6 fl. (7.2-11.1); NUCLEATED RBCS 0 /100WBC; PLATELET COUNT* 238 thou/uL (150-400); POLYS 59.8 %; RBC 3.54 mil/uL (4.20-5.00); RDW-CV 14.5 % (10.5-14.5)
[2019-11-29 10:30] VITALS: BP 132/78
[2019-11-29 10:40] LABS: ALBUMIN 3.4 g/dL (3.4-5.0); CALCIUM 8.1 mg/dL (8.5-10.1); CREATININE 2.6 mg/dL (0.6-1.3); PHOSPHORUS* 4.9 mg/dL (2.5-4.9); POTASSIUM 3.8 mmol/L (3.5-5.1); TOTAL BILIRUBIN 0.3 mg/dL (<0.1-1.0); TOTAL PROTEIN 6.8 g/dL (6.4-8.2)
== END ==
LOC: M.INFUS 11-14 09:30
PROVIDERS: Internal Medicine
DX: N18.4 Chronic kidney disease, stage 4 (severe) (principal); D63.1 Anemia in chronic kidney disease

== ENCOUNTER → 2019-12-18 | Outpatient (CLI) | payer MEDICARE, MEDICAID ==
[2019-12-18 09:15] VITALS: BP 173/101
== END ==
LOC: M.INFUS 03:22
DX: N18.4 Chronic kidney disease, stage 4 (severe) (principal); D63.1 Anemia in chronic kidney disease

== ENCOUNTER → 2020-01-21 | Outpatient (CLI) | payer MEDICARE, MEDICAID ==
[2020-01-21 09:40] LABS: HEMATOCRIT 30.3 % (37.0-47.0); MCH 27.9 pg (26.0-34.0); MCHC 32.9 g/dL (28.0-37.0); MCV 84.7 fL (80.0-100.0); RBC 3.58 mil/uL (4.20-5.00); RDW-CV 14.8 % (10.5-14.5); WBC 7.7 thou/uL (4.0-11.0)
[2020-01-21 10:00] VITALS: BP 148/84
[2020-01-21 10:03] LABS: ALBUMIN 3.2 g/dL (3.4-5.0); CALCIUM 8.2 mg/dL (8.5-10.1); MAGNESIUM 2.2 mg/dL (1.8-2.4); PHOSPHORUS* 4.9 mg/dL (2.5-4.9); POTASSIUM 4.3 mmol/L (3.5-5.1); TOTAL BILIRUBIN 0.3 mg/dL (<0.1-1.0); TOTAL PROTEIN 6.7 g/dL (6.4-8.2)
--- NOTE | 2020-01-21 10:45 | NUR ---
ARRIVED PER WHEELCHAIR. STAYED IN WHEELCHAIR FOR VISIT. LABS DRAWN PER ORDER. PT UNAABLE TO PROVIDE URINE SAMPLE SO PT SENT HOME WITH HAT AND LABLED SPECIME CUP WITH INSTRUCTION TO COLLECT SAMPLE AND RETURN IT TO LAB. YEFRI IN LAB NOTIFIED AND UPDATED. LAB RESULTS EVALUATED AND PT MEETS GRACIELA FOR INJECTION OR PROCRIT TODAY. INJECTION COMPLETED AND TOLERATED WELL. DENIES QUESTIONS OR NEEDS AT DISCHARGE.
== END ==
LOC: M.INFUS 04:56
PROVIDERS: Internal Medicine
DX: N18.4 Chronic kidney disease, stage 4 (severe) (principal); D63.1 Anemia in chronic kidney disease

== ENCOUNTER → 2020-02-14 | Outpatient (CLI) | payer MEDICARE, MEDICAID ==
[2020-02-14 09:15] VITALS: BP 156/79
[2020-02-14 09:31] LABS: ABSOLUTE BASOPHILS 0.1 thou/uL (0.0-0.2); ABSOLUTE EOSINOPHILS 0.2 thou/uL (0.0-0.7); ABSOLUTE LYMPHOCYTES 1.8 thou/uL (0.8-5.3); ABSOLUTE MONOCYTES 0.6 thou/uL (0.0-1.2); ABSOLUTE NEUTROPHILS 3.7 thou/uL (1.6-8.1); BASOPHILS 0.9 %; EOSINOPHILS 3.5 %; HEMATOCRIT 27.7 % (37.0-47.0); HEMOGLOBIN 9.4 gm/dL (12.0-15.0); MCH 28.5 pg (26.0-34.0); MCHC 33.8 g/dL (28.0-37.0); MCV 84.3 fL (80.0-100.0); MPV 8.2 fl. (7.2-11.1); NUCLEATED RBCS 0 /100WBC; PLATELET COUNT* 246 thou/uL (150-400); POLYS 58.6 %; RBC 3.29 mil/uL (4.20-5.00); RDW-CV 14.5 % (10.5-14.5); WBC 6.4 thou/uL (4.0-11.0)
[2020-02-14 09:51] LABS: ALBUMIN 3.1 g/dL (3.4-5.0); CREATININE 2.7 mg/dL (0.6-1.3); MAGNESIUM 2.2 mg/dL (1.8-2.4); PHOSPHORUS* 4.5 mg/dL (2.5-4.9); POTASSIUM 3.6 mmol/L (3.5-5.1); TOTAL BILIRUBIN 0.2 mg/dL (<0.1-1.0)
== END ==
LOC: M.INFUS 04:03
PROVIDERS: Internal Medicine; ATTEND Internal Medicine Nephrology
DX: N18.4 Chronic kidney disease, stage 4 (severe) (principal); D63.1 Anemia in chronic kidney disease

== ENCOUNTER 2020-04-16 19:00 | Inpatient (IN) | payer MEDICARE, MEDICAID ==
[~2020-04-16] VITALS: Ht 167.6 cm; Wt 96.6 kg
[2020-04-16 19:02] VITALS: BP 176/60
[2020-04-16 19:30] LABS: HEMATOCRIT 25.7 % (37.0-47.0); HEMOGLOBIN 8.5 gm/dL (12.0-15.0); MCH 27.5 pg (26.0-34.0); MCV 83.2 fL (80.0-100.0); NUCLEATED RBCS 0 /100WBC; PLATELET COUNT* 316 thou/uL (150-400); RBC 3.09 mil/uL (4.20-5.00); RDW-CV 14.9 % (10.5-14.5); WBC 7.5 thou/uL (4.0-11.0)
[2020-04-16 19:37] LABS: CALCIUM 6.5 mg/dL (8.5-10.1); CREATININE 3.9 mg/dL (0.6-1.3); POTASSIUM 3.3 mmol/L (3.5-5.1)
[2020-04-16 19:38] LABS: APTT 26.4 Seconds (25.0-31.3); INR 1.1; PROTIME 11.6 Seconds (9.20-11.50)
[2020-04-16 19:43] LABS: BE -7.1 mmol/L (-2 to +3); PCO2 26.2 mmHg (35.0-45.0); PO2 107.2 mmHg (75.0-100.0); pH 7.418 (7.340-7.450)
[2020-04-16 19:47] LABS: ABSOLUTE EOSINOPHILS 0.1 thou/uL (0.0-0.7); ABSOLUTE MONOCYTES 0.5 thou/uL (0.0-1.2); ATYPICAL LYMPHS 1 %; PLATELET ESTIMATE ADEQUATE
[2020-04-16 19:48] LABS: ALBUMIN 2.4 g/dL (3.4-5.0); MAGNESIUM 1.5 mg/dL (1.8-2.4); TOTAL BILIRUBIN 0.4 mg/dL (<0.1-1.0); TOTAL PROTEIN 5.8 g/dL (6.4-8.2)
[2020-04-16 20:17] LABS: URINE BILIRUBIN NEGATIVE (Negative); URINE BLOOD 2+ (Negative); URINE CLARITY CLEAR; URINE COLOR YELLOW; URINE GLUCOSE-RANDOM NEGATIVE (Negative); URINE KETONES NEGATIVE (Negative); URINE LEUKOCYTES-REFLEX NEGATIVE (Negative); URINE NITRITE-REFLEX NEGATIVE (Negative); URINE PROTEIN 2+ (Negative); URINE UROBILINOGEN 0.2 E.U./dl (0.2-1.0)
[2020-04-16 20:40] LABS: CASTS None Seen /LPF (None Seen); CRYSTALS None Seen /LPF (None Seen); SQUAMOUS >10 Many /LPF (0-3); URINE RBC 3-10 Few /HPF (0-2)
[2020-04-16 21:47] VITALS: BP 187/60
[2020-04-16] MEDS ORDERED: ACID CONTROLLER20 MG PO (23:38)
[2020-04-16] MEDS ORDERED: LEVO-T100 MCG PO (23:39)
[2020-04-16] MEDS ORDERED: TYLENOL EXTRA500 MG PO (23:41)
[2020-04-16] MEDS ORDERED: TRESIBA100 UNIT/1 (23:42)
[2020-04-17] VITALS (7 sets, daily range): BP systolic 151–198; BP diastolic 44–75
[2020-04-17 09:56] LABS: CALCIUM 6.5 mg/dL (8.5-10.1); CREATININE 3.9 mg/dL (0.6-1.3); MAGNESIUM 1.5 mg/dL (1.8-2.4); PHOSPHORUS* 5.7 mg/dL (2.5-4.9)
[2020-04-17 10:25] LABS: % SATURATION 5 % (20-39); IRON 7 ug/dL (50-175)
--- NOTE | 2020-04-17 10:30 | EKG ---
[place] [address] ELECTROCARDIOGRAM REPORT Name: FAROOQTRINOPEPERADHA L Room: [address] ADM IN M.R.#: [id number] Admission: 04/16/20 Attend Phys: Misty Acosta, Discharge: Date of : 49 Date of Service: 04/16/201930 Report #: [id number] THIS REPORT FOR: //name// [facility] ED Test Date: 2020-04-16 Test Time: 19:31:41 Pat Name: RADHA HOLDER Department: Room: 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[place] : 1945 Requested By: Hansa Bello Order Number: [id number] MD: Murali Gaspar Measurements Intervals Portal Rate: 75 P: 45 MT: 199 QRS: 6 QRSD: 99 T: 21 QT: 441 QTc: 493 Interpretive Statements Sinus rhythm Minimal ST depression, inferior leads Borderline prolonged QT interval Baseline wander in lead(s) II,III,aVF No previous ECG available for comparison Electronically Signed On 04-17-2020 10:30:36 CDT by Murali Gaspar [email or web address] <ELECTRONICALLY SIGNED> By: Murali Gaspar MD, [facility] 04/17/20 1030 30 30 Murlai Gaspar MD, FAC /EPI
[2020-04-17 15:11] LABS: URINE POTASSIUM-RANDOM 20.7 mmol/L
[2020-04-18] VITALS (7 sets, daily range): BP systolic 180–207; BP diastolic 38–74
[2020-04-18 05:17] LABS: HEMATOCRIT 23.2 % (37.0-47.0); HEMOGLOBIN 7.7 gm/dL (12.0-15.0); MCH 27.4 pg (26.0-34.0); MCHC 33.2 g/dL (28.0-37.0); MCV 82.7 fL (80.0-100.0); MPV 7.7 fl. (7.2-11.1); RBC 2.81 mil/uL (4.20-5.00); RDW-CV 14.8 % (10.5-14.5); WBC 6.4 thou/uL (4.0-11.0)
[2020-04-18 05:41] LABS: ALBUMIN 2.2 g/dL (3.4-5.0); CALCIUM 6.9 mg/dL (8.5-10.1); POTASSIUM 3.3 mmol/L (3.5-5.1); TOTAL BILIRUBIN 0.4 mg/dL (<0.1-1.0); TOTAL PROTEIN 5.6 g/dL (6.4-8.2)
[2020-04-19] VITALS: BP 172/55
[2020-04-19 04:00] VITALS: BP 189/74
[2020-04-19 05:05] LABS: CALCIUM 7.3 mg/dL (8.5-10.1); CREATININE 3.3 mg/dL (0.6-1.3); MAGNESIUM 1.5 mg/dL (1.8-2.4); POTASSIUM 3.4 mmol/L (3.5-5.1)
[2020-04-19 05:06] LABS: HEMATOCRIT 26.1 % (37.0-47.0); HEMOGLOBIN 8.7 gm/dL (12.0-15.0); MCH 27.3 pg (26.0-34.0); MCHC 33.4 g/dL (28.0-37.0); MCV 81.6 fL (80.0-100.0); MPV 7.8 fl. (7.2-11.1); RBC 3.19 mil/uL (4.20-5.00); RDW-CV 15.3 % (10.5-14.5); WBC 11.5 thou/uL (4.0-11.0)
[2020-04-19 08:00] VITALS: BP 241/76
[2020-04-19 11:13] LABS: BE -0.9 mmol/L (-2 to +3); PCO2 26.3 mmHg (35.0-45.0); PO2 72.6 mmHg (75.0-100.0); pH 7.525 (7.340-7.450)
[2020-04-19 11:30] VITALS: BP 161/49
[2020-04-19 16:40] VITALS: BP 170/54
[2020-04-19 20:00] VITALS: BP 193/63
[2020-04-19 22:06] LABS: HEPATITIS B SURFACE AG Negative (Negative)
[2020-04-20] VITALS: BP 151/52
[2020-04-20 04:00] VITALS: BP 160/52
[2020-04-20 04:43] LABS: HEMATOCRIT 21.3 % (37.0-47.0); MCH 26.8 pg (26.0-34.0); MCHC 32.6 g/dL (28.0-37.0); MCV 82.3 fL (80.0-100.0); MPV 8.2 fl. (7.2-11.1); NUCLEATED RBCS 0 /100WBC; RBC 2.59 mil/uL (4.20-5.00); RDW-CV 14.8 % (10.5-14.5); WBC 13.4 thou/uL (4.0-11.0)
[2020-04-20 04:44] LABS: PLATELET COUNT* 241 thou/uL (150-400)
[2020-04-20 04:51] LABS: CALCIUM 6.9 mg/dL (8.5-10.1); CREATININE 3.9 mg/dL (0.6-1.3); POTASSIUM 3.3 mmol/L (3.5-5.1)
[2020-04-20 05:37] LABS: ABSOLUTE LYMPHOCYTES 0.9 thou/uL (0.8-5.3); ABSOLUTE MONOCYTES 0.3 thou/uL (0.0-1.2); ABSOLUTE NEUTROPHILS 12.2 thou/uL (1.6-8.1); PLATELET ESTIMATE ADEQUATE
[2020-04-20 05:38] LABS: ANISOCYTOSIS 1+; HYPOCHROMASIA 1+; OVALOCYTES 1+; POIKILOCYTOSIS 1+
[2020-04-20 08:00] VITALS: BP 148/60
[2020-04-20 12:00] VITALS: BP 159/69
[2020-04-20 16:00] VITALS: BP 143/60
[2020-04-20 20:00] VITALS: BP 137/49
[2020-04-21 00:45] VITALS: BP 130/33
[2020-04-21 04:00] VITALS: BP 166/54
[2020-04-21 05:37] LABS: ABSOLUTE BASOPHILS 0.2 thou/uL (0.0-0.2); ABSOLUTE EOSINOPHILS 0.3 thou/uL (0.0-0.7); ABSOLUTE LYMPHOCYTES 0.8 thou/uL (0.8-5.3); ABSOLUTE MONOCYTES 0.5 thou/uL (0.0-1.2); BASOPHILS 1.3 %; EOSINOPHILS 1.9 %; HEMOGLOBIN 7.2 gm/dL (12.0-15.0); LYMPHOCYTES 5.5 %; MCH 26.9 pg (26.0-34.0); MCHC 32.9 g/dL (28.0-37.0); MCV 81.8 fL (80.0-100.0); MONOCYTES 3.7 %; MPV 7.7 fl. (7.2-11.1); NUCLEATED RBCS 0 /100WBC; PLATELET COUNT* 251 thou/uL (150-400); POLYS 87.6 %; RBC 2.69 mil/uL (4.20-5.00); RDW-CV 15.1 % (10.5-14.5); WBC 13.7 thou/uL (4.0-11.0)
[2020-04-21 05:54] LABS: CALCIUM 6.7 mg/dL (8.5-10.1); MAGNESIUM 1.7 mg/dL (1.8-2.4); POTASSIUM 3.3 mmol/L (3.5-5.1)
[2020-04-21 08:00] VITALS: BP 154/60
[2020-04-21 17:06] VITALS: BP 169/62
[2020-04-21 20:00] VITALS: BP 161/67
[2020-04-22] VITALS: BP 153/56
[2020-04-22 04:48] LABS: ABSOLUTE LYMPHOCYTES 1.1 thou/uL (0.8-5.3); ABSOLUTE MONOCYTES 0.6 thou/uL (0.0-1.2); ABSOLUTE NEUTROPHILS 10.3 thou/uL (1.6-8.1); BASOPHILS 0.3 %; EOSINOPHILS 0.1 %; HEMATOCRIT 20.7 % (37.0-47.0); MCHC 32.9 g/dL (28.0-37.0); MCV 81.9 fL (80.0-100.0); MPV 8.5 fl. (7.2-11.1); NUCLEATED RBCS 0 /100WBC; PLATELET COUNT* 260 thou/uL (150-400); POLYS 85.6 %; RBC 2.53 mil/uL (4.20-5.00)
[2020-04-22 04:55] LABS: CREATININE 2.8 mg/dL (0.6-1.3); POTASSIUM 3.5 mmol/L (3.5-5.1)
[2020-04-22 05:02] LABS: HEMOGLOBIN 6.8 gm/dL (12.0-15.0)
[2020-04-22 07:40] VITALS: BP 173/50
[2020-04-22 13:33] VITALS: BP 142/55; BP 151/60; BP 154/57; BP 157/63; BP 166/65
[2020-04-22 19:23] LABS: HEMATOCRIT 24.9 % (37.0-47.0); HEMOGLOBIN 8.3 gm/dL (12.0-15.0)
[2020-04-22 20:00] VITALS: BP 173/64
[2020-04-23 04:37] VITALS: BP 184/73
[2020-04-23 04:40] LABS: CALCIUM 6.7 mg/dL (8.5-10.1); CREATININE 3.4 mg/dL (0.6-1.3); MAGNESIUM 1.7 mg/dL (1.8-2.4); POTASSIUM 3.8 mmol/L (3.5-5.1)
[2020-04-23 04:51] LABS: ABSOLUTE EOSINOPHILS 0.4 thou/uL (0.0-0.7); ABSOLUTE LYMPHOCYTES 1.3 thou/uL (0.8-5.3); ABSOLUTE NEUTROPHILS 6.7 thou/uL (1.6-8.1); BASOPHILS 0.3 %; EOSINOPHILS 4.3 %; HEMATOCRIT 26.2 % (37.0-47.0); HEMOGLOBIN 8.7 gm/dL (12.0-15.0); LYMPHOCYTES 13.5 %; MCH 27.7 pg (26.0-34.0); MCHC 33.3 g/dL (28.0-37.0); MCV 83.3 fL (80.0-100.0); MONOCYTES 10.2 %; MPV 8.6 fl. (7.2-11.1); NUCLEATED RBCS 0 /100WBC; PLATELET COUNT* 274 thou/uL (150-400); POLYS 71.7 %; RBC 3.14 mil/uL (4.20-5.00); RDW-CV 15.3 % (10.5-14.5); WBC 9.3 thou/uL (4.0-11.0)
[2020-04-23 08:14] VITALS: BP 173/58
[2020-04-23 16:47] VITALS: BP 176/77
[2020-04-23 20:00] VITALS: BP 180/59
[2020-04-24 05:10] LABS: ABSOLUTE LYMPHOCYTES 1.1 thou/uL (0.8-5.3); ABSOLUTE MONOCYTES 0.5 thou/uL (0.0-1.2); ABSOLUTE NEUTROPHILS 7.8 thou/uL (1.6-8.1); BASOPHILS 0.3 %; EOSINOPHILS 0.1 %; HEMATOCRIT 24.1 % (37.0-47.0); HEMOGLOBIN 8.1 gm/dL (12.0-15.0); LYMPHOCYTES 11.9 %; MCH 27.7 pg (26.0-34.0); MCHC 33.7 g/dL (28.0-37.0); MCV 82.2 fL (80.0-100.0); MONOCYTES 5.4 %; MPV 8.2 fl. (7.2-11.1); NUCLEATED RBCS 0 /100WBC; PLATELET COUNT* 262 thou/uL (150-400); POLYS 82.3 %; RBC 2.93 mil/uL (4.20-5.00); RDW-CV 14.9 % (10.5-14.5); WBC 9.5 thou/uL (4.0-11.0)
[2020-04-24 05:37] LABS: CALCIUM 7.3 mg/dL (8.5-10.1); CREATININE 4.2 mg/dL (0.6-1.3); PHOSPHORUS* 2.8 mg/dL (2.5-4.9); POTASSIUM 4.3 mmol/L (3.5-5.1)
[2020-04-24 07:52] VITALS: BP 175/68
[2020-04-24 13:49] VITALS: BP 153/54
[2020-04-24 20:00] VITALS: BP 161/57
[2020-04-25 04:30] LABS: HEMATOCRIT 24.1 % (37.0-47.0); HEMOGLOBIN 8.2 gm/dL (12.0-15.0); MCHC 33.9 g/dL (28.0-37.0); MCV 82.6 fL (80.0-100.0); NUCLEATED RBCS 0 /100WBC; PLATELET COUNT* 279 thou/uL (150-400); RBC 2.91 mil/uL (4.20-5.00); RDW-CV 15.3 % (10.5-14.5); WBC 7.1 thou/uL (4.0-11.0)
[2020-04-25 04:42] LABS: CALCIUM 7.3 mg/dL (8.5-10.1); CREATININE 4.2 mg/dL (0.6-1.3); POTASSIUM 4.2 mmol/L (3.5-5.1)
[2020-04-25 06:13] LABS: ABSOLUTE EOSINOPHILS 0.4 thou/uL (0.0-0.7); ABSOLUTE LYMPHOCYTES 1.3 thou/uL (0.8-5.3); ABSOLUTE MONOCYTES 0.6 thou/uL (0.0-1.2); ABSOLUTE NEUTROPHILS 4.8 thou/uL (1.6-8.1); LARGE PLATELETS FEW; PLATELET ESTIMATE ADEQUATE; TOXIC GRANULATION 1+
[2020-04-25 06:14] LABS: ANISOCYTOSIS 1+; HYPOCHROMASIA 1+; POIKILOCYTOSIS 1+
[2020-04-25 07:50] VITALS: BP 167/60
[2020-04-25 15:00] VITALS: BP 172/56
[2020-04-25 19:45] VITALS: BP 172/62
[2020-04-26 04:57] LABS: HEMATOCRIT 23.2 % (37.0-47.0); HEMOGLOBIN 7.6 gm/dL (12.0-15.0); MCH 27.3 pg (26.0-34.0); MCHC 32.9 g/dL (28.0-37.0); MCV 82.9 fL (80.0-100.0); MPV 8.2 fl. (7.2-11.1); RBC 2.8 mil/uL (4.20-5.00); RDW-CV 15.2 % (10.5-14.5); WBC 6.7 thou/uL (4.0-11.0)
[2020-04-26 05:38] LABS: ALBUMIN 2.2 g/dL (3.4-5.0); CALCIUM 7.4 mg/dL (8.5-10.1); CREATININE 4.4 mg/dL (0.6-1.3); MAGNESIUM 1.8 mg/dL (1.8-2.4); POTASSIUM 4.1 mmol/L (3.5-5.1); TOTAL BILIRUBIN 0.4 mg/dL (<0.1-1.0); TOTAL PROTEIN 5.5 g/dL (6.4-8.2)
[2020-04-26 08:27] VITALS: BP 181/66
[2020-04-26 20:45] VITALS: BP 190/65
[2020-04-26 22:15] VITALS: BP 158/41
[2020-04-27 04:15] LABS: HEMATOCRIT 25.5 % (37.0-47.0); HEMOGLOBIN 8.3 gm/dL (12.0-15.0); MCH 27.4 pg (26.0-34.0); MCHC 32.5 g/dL (28.0-37.0); MCV 84.4 fL (80.0-100.0); MPV 7.7 fl. (7.2-11.1); RBC 3.02 mil/uL (4.20-5.00); WBC 8.2 thou/uL (4.0-11.0)
[2020-04-27 04:32] LABS: ALBUMIN 2.2 g/dL (3.4-5.0); CALCIUM 7.8 mg/dL (8.5-10.1); CREATININE 4.4 mg/dL (0.6-1.3); MAGNESIUM 1.7 mg/dL (1.8-2.4); PHOSPHORUS* 2.8 mg/dL (2.5-4.9); POTASSIUM 4.2 mmol/L (3.5-5.1)
[2020-04-27 06:30] VITALS: BP 206/67
[2020-04-27 08:15] VITALS: BP 175/57
[2020-04-27 16:00] VITALS: BP 165/70
[2020-04-27 19:45] VITALS: BP 166/55
[2020-04-27 23:50] VITALS: BP 170/52
[2020-04-28 04:40] LABS: HEMATOCRIT 23.8 % (37.0-47.0); HEMOGLOBIN 7.9 gm/dL (12.0-15.0); MCH 27.7 pg (26.0-34.0); MCHC 33.2 g/dL (28.0-37.0); MCV 83.5 fL (80.0-100.0); MPV 7.5 fl. (7.2-11.1); RBC 2.85 mil/uL (4.20-5.00); RDW-CV 15.7 % (10.5-14.5); WBC 7.8 thou/uL (4.0-11.0)
[2020-04-28 05:08] LABS: CALCIUM 7.6 mg/dL (8.5-10.1); CREATININE 4.3 mg/dL (0.6-1.3); MAGNESIUM 1.7 mg/dL (1.8-2.4); POTASSIUM 4.2 mmol/L (3.5-5.1)
[2020-04-28 05:37] LABS: ALBUMIN 2.2 g/dL (3.4-5.0); CALCIUM 7.9 mg/dL (8.5-10.1); CREATININE 4.3 mg/dL (0.6-1.3); PHOSPHORUS* 2.9 mg/dL (2.5-4.9); POTASSIUM 4.2 mmol/L (3.5-5.1)
[2020-04-28 08:00] VITALS: BP 155/52
[2020-04-28 13:36] VITALS: BP 165/54
[2020-04-28 18:57] VITALS: BP 156/59
[2020-04-28 20:00] VITALS: BP 157/44
[2020-04-29 05:20] LABS: HEMATOCRIT 24.8 % (37.0-47.0); MCH 26.9 pg (26.0-34.0); MCHC 32.2 g/dL (28.0-37.0); MCV 83.6 fL (80.0-100.0); MPV 7.8 fl. (7.2-11.1); RBC 2.97 mil/uL (4.20-5.00); RDW-CV 16.2 % (10.5-14.5); WBC 11.3 thou/uL (4.0-11.0)
[2020-04-29 05:52] LABS: ALBUMIN 2.1 g/dL (3.4-5.0); CALCIUM 7.2 mg/dL (8.5-10.1); CREATININE 2.9 mg/dL (0.6-1.3); MAGNESIUM 1.7 mg/dL (1.8-2.4); TOTAL BILIRUBIN 0.4 mg/dL (<0.1-1.0); TOTAL PROTEIN 5.6 g/dL (6.4-8.2)
[2020-04-29 08:15] VITALS: BP 166/54
[2020-04-29 15:30] VITALS: BP 132/42
[2020-04-29 20:15] VITALS: BP 152/55
[2020-04-30 04:03] LABS: HEMATOCRIT 23.8 % (37.0-47.0); HEMOGLOBIN 7.8 gm/dL (12.0-15.0); MCH 27.3 pg (26.0-34.0); MCHC 32.6 g/dL (28.0-37.0); MCV 83.7 fL (80.0-100.0); MPV 7.9 fl. (7.2-11.1); RBC 2.84 mil/uL (4.20-5.00); RDW-CV 15.8 % (10.5-14.5); WBC 8.9 thou/uL (4.0-11.0)
[2020-04-30 04:21] LABS: CALCIUM 7.2 mg/dL (8.5-10.1); CREATININE 3.7 mg/dL (0.6-1.3); MAGNESIUM 1.7 mg/dL (1.8-2.4); PHOSPHORUS* 2.7 mg/dL (2.5-4.9); POTASSIUM 4.1 mmol/L (3.5-5.1)
[2020-04-30 07:40] VITALS: BP 148/54
[2020-04-30] MEDS ORDERED: NEPHRO-VITE TA0.8 MG PO (11:45)
[2020-04-30] MEDS ORDERED: LABETALOL HCL100 MG PO (11:45)
[2020-04-30] MEDS ORDERED: PROCARDIA XL30 MG PO (11:45)
[2020-04-30 14:51] VITALS: BP 148/54
[2020-04-30 16:00] VITALS: BP 139/49
--- NOTE | 2020-05-02 07:51 | CON ---
[address] [address] CONSULTATION Name: RADHA HOLDER Room: [address] IN M.R.#: [id number] Admission: 04/16/20 Attend Phys: Misty Acosta MD Discharge: 04/30/20 Date of : 49 Report #: [id number] THIS REPORT FOR: //name// cc: Stefan Martin Dean R. FNP-C ~ THIS REPORT FOR: //name// CC: Stfean Acosta DATE OF SERVICE: 04/17/2020 REQUESTING PHYSICIAN: Dr. Acosta. REASON FOR CONSULTATION: Progressive renal failure in a patient who received renal transplant 21 years ago. HISTORY OF PRESENT ILLNESS: The patient is a 74-year-old female known to our practice, followed with Dr. Hameed and then Dr. Ly for renal disease. The patient has end-stage renal disease and was on peritoneal dialysis for 6 years prior to receiving a renal transplant in 1998. She has been losing her kidney function and finally reached a point where she needs to go on dialysis again. She presents with complaints of not feeling well, being weak. Most likely it is all just because of her progressive uremia. PAST MEDICAL HISTORY: As I mentioned earlier. She also has history of hypertension, anemia. She also has diabetes mellitus type 2. SOCIAL HISTORY: No tobacco, no alcohol abuse. FAMILY HISTORY: Negative for renal disease. MEDICATIONS: Reviewed. REVIEW OF SYSTEMS: Positive for weakness, poor appetite, not feeling well. PHYSICAL EXAMINATION: GENERAL: Awake, alert, and oriented. VITAL SIGNS: Blood pressure 198/73, heart rate 83, afebrile. HEENT: Pupils are round. NECK: Fatty. LUNGS: Decreased air movements. CARDIOVASCULAR: Regular rate. ABDOMEN: Soft. LOWER EXTREMITIES: [place] [id number] CONSULTATION Name: RADHA HOLDER Room: [address]#: [id number] Admission: 04/16/20 Attend Phys: Misty Acosta MD Discharge: 04/30/20 Date of : 49 Report #: [id number] LABORATORY DATA: Revealed hemoglobin is 8.5, white count 7.5, potassium 3.0, carbon dioxide 17, BUN 68, creatinine 3.9, phosphorus 5.7, magnesium 1.5. ASSESSMENT: 1. Progressive renal failure, now reaching end-stage. GFR is 11. 2. Metabolic acidosis. 3. Hyperphosphatemia. 4. Hypercalcemia. PLAN: 1. I asked Interventional Radiology to place tunneled dialysis line and initiate dialysis. 2. We will give her phosphate binders. 3. We will give her also calcium carbonate to decrease her phosphorus level. <ELECTRONICALLY SIGNED> By: Nelson Osuna MD 05/02/20 0751 1250 1940Nelson Osuna MD /lokesh
== END 2020-04-30 18:29 | DRG 698 ==
LOC: M.ERS 19:00 → M.ORTHSURG 20:22 → M.2W 20:22 → M.TBA-ER 20:22 → M.2W 21:48 → M.ORTHSURG 04-22 17:35
PROVIDERS: Internal Medicine; Internal Medicine Nephrology; Personal Emergency Response Attendant; ADMIT Internal Medicine; ATTEND Internal Medicine
DX: T86.12 Kidney transplant failure (principal); N17.0 Acute kidney failure with tubular necrosis; N18.6 End stage renal disease; A41.9 Sepsis, unspecified organism; I12.0 Hypertensive chronic kidney disease with stage 5 chronic kidney disease or end stage renal disease; I16.1 Hypertensive emergency; E83.39 Other disorders of phosphorus metabolism; E87.6 Hypokalemia; R53.81 Other malaise; J30.9 Allergic rhinitis, unspecified; M16.11 Unilateral primary osteoarthritis, right hip; M17.11 Unilateral primary osteoarthritis, right knee; E11.22 Type 2 diabetes mellitus with diabetic chronic kidney disease; L89.306 Pressure-induced deep tissue damage of unspecified buttock; E83.51 Hypocalcemia; E66.9 Obesity, unspecified; E03.9 Hypothyroidism, unspecified; Y83.8 Other surgical procedures as the cause of abnormal reaction of the patient, or of later complication, without mention of misadventure at the time of the procedure; Z96.642 Presence of left artificial hip joint; Z20.828 Contact with and (suspected) exposure to other viral communicable diseases; Y92.89 Other specified places as the place of occurrence of the external cause; Z68.34 Body mass index [BMI] 34.0-34.9, adult; Z94.0 Kidney transplant status; Z90.710 Acquired absence of both cervix and uterus; Z98.891 History of uterine scar from previous surgery; Z79.4 Long term (current) use of insulin; Z79.899 Other long term (current) drug therapy; Z88.1 Allergy status to other antibiotic agents; Z88.0 Allergy status to penicillin; Z88.8 Allergy status to other drugs, medicaments and biological substances; Z91.048 Other nonmedicinal substance allergy status; Z99.2 Dependence on renal dialysis

== ENCOUNTER 2020-04-30 15:14 | Inpatient (IN) | payer MEDICARE, MEDICAID ==
[~2020-04-30] VITALS: Ht 167.6 cm; Wt 167.6 kg
[~2020-04-30 15:14] MED LIST changes: +ACID CONTROLLER20 MG PO; +LABETALOL HCL100 MG PO; +LEVO-T100 MCG PO; +NEPHRO-VITE TA0.8 MG PO; +PROCARDIA XL30 MG PO; +TRESIBA100 UNIT/1; +TYLENOL EXTRA500 MG PO
[2020-04-30 19:00] VITALS: BP 140/51
[2020-05-01 04:53] LABS: ABSOLUTE BASOPHILS 0.1 thou/uL (0.0-0.2); ABSOLUTE EOSINOPHILS 0.3 thou/uL (0.0-0.7); ABSOLUTE LYMPHOCYTES 1.4 thou/uL (0.8-5.3); ABSOLUTE MONOCYTES 0.6 thou/uL (0.0-1.2); ABSOLUTE NEUTROPHILS 6.7 thou/uL (1.6-8.1); BASOPHILS 0.6 %; EOSINOPHILS 3.3 %; HEMATOCRIT 23.7 % (37.0-47.0); HEMOGLOBIN 7.7 gm/dL (12.0-15.0); LYMPHOCYTES 15.3 %; MCH 27.4 pg (26.0-34.0); MCHC 32.6 g/dL (28.0-37.0); MCV 84.1 fL (80.0-100.0); MONOCYTES 6.7 %; MPV 7.9 fl. (7.2-11.1); NUCLEATED RBCS 0 /100WBC; PLATELET COUNT* 303 thou/uL (150-400); POLYS 74.1 %; RBC 2.81 mil/uL (4.20-5.00); RDW-CV 16.3 % (10.5-14.5)
[2020-05-01 05:09] LABS: CALCIUM 7.2 mg/dL (8.5-10.1); CREATININE 3.1 mg/dL (0.6-1.3); POTASSIUM 4.2 mmol/L (3.5-5.1)
[2020-05-01 06:00] VITALS: BP 163/59
[2020-05-01 08:28] VITALS: BP 156/58
[2020-05-02 04:03] LABS: HEMATOCRIT 21.6 % (37.0-47.0); HEMOGLOBIN 7.1 gm/dL (12.0-15.0)
[2020-05-02 04:14] LABS: ALBUMIN 2.2 g/dL (3.4-5.0); CALCIUM 7.1 mg/dL (8.5-10.1); PHOSPHORUS* 3.5 mg/dL (2.5-4.9); POTASSIUM 4.6 mmol/L (3.5-5.1)
[2020-05-02 04:26] LABS: CREATININE 4.2 mg/dL (0.6-1.3)
[2020-05-02 05:45] VITALS: BP 161/67
[2020-05-02 08:00] VITALS: BP 146/55
[2020-05-02 11:53] LABS: ABSOLUTE BASOPHILS 0.1 thou/uL (0.0-0.2); ABSOLUTE EOSINOPHILS 0.2 thou/uL (0.0-0.7); ABSOLUTE LYMPHOCYTES 1.3 thou/uL (0.8-5.3); ABSOLUTE MONOCYTES 0.6 thou/uL (0.0-1.2); ABSOLUTE NEUTROPHILS 6.2 thou/uL (1.6-8.1); BASOPHILS 0.8 %; EOSINOPHILS 2.7 %; LYMPHOCYTES 15.1 %; MCH 27.5 pg (26.0-34.0); MCHC 32.6 g/dL (28.0-37.0); MCV 84.3 fL (80.0-100.0); MONOCYTES 7.3 %; MPV 8.3 fl. (7.2-11.1); NUCLEATED RBCS 0 /100WBC; PLATELET COUNT* 291 thou/uL (150-400); POLYS 74.1 %; RBC 2.62 mil/uL (4.20-5.00); RDW-CV 16.4 % (10.5-14.5); WBC 8.4 thou/uL (4.0-11.0)
[2020-05-02 11:59] LABS: ALBUMIN 2.3 g/dL (3.4-5.0); CALCIUM 7.2 mg/dL (8.5-10.1); CREATININE 4.2 mg/dL (0.6-1.3); POTASSIUM 4.6 mmol/L (3.5-5.1)
[2020-05-02 12:25] LABS: TOTAL BILIRUBIN 0.4 mg/dL (<0.1-1.0); TOTAL PROTEIN 5.9 g/dL (6.4-8.2)
[2020-05-02 17:00] VITALS: BP 173/62
[2020-05-02 19:48] VITALS: BP 157/49
[2020-05-03 00:26] VITALS: BP 161/55
[2020-05-03 07:55] VITALS: BP 133/56; BP 176/60
[2020-05-03 09:15] LABS: ALBUMIN 2.1 g/dL (3.4-5.0); CALCIUM 6.5 mg/dL (8.5-10.1); POTASSIUM 4.2 mmol/L (3.5-5.1); TOTAL BILIRUBIN 0.4 mg/dL (<0.1-1.0); TOTAL PROTEIN 5.3 g/dL (6.4-8.2)
[2020-05-03 09:18] LABS: CREATININE 3.2 mg/dL (0.6-1.3)
[2020-05-03 09:34] LABS: ABSOLUTE BASOPHILS 0.1 thou/uL (0.0-0.2); ABSOLUTE EOSINOPHILS 0.4 thou/uL (0.0-0.7); ABSOLUTE LYMPHOCYTES 1.3 thou/uL (0.8-5.3); ABSOLUTE MONOCYTES 0.7 thou/uL (0.0-1.2); ABSOLUTE NEUTROPHILS 7.1 thou/uL (1.6-8.1); BASOPHILS 0.9 %; EOSINOPHILS 3.8 %; HEMATOCRIT 22.6 % (37.0-47.0); HEMOGLOBIN 7.4 gm/dL (12.0-15.0); LYMPHOCYTES 13.9 %; MCH 27.7 pg (26.0-34.0); MCHC 32.9 g/dL (28.0-37.0); MONOCYTES 7.6 %; MPV 8.3 fl. (7.2-11.1); NUCLEATED RBCS 0 /100WBC; PLATELET COUNT* 297 thou/uL (150-400); POLYS 73.8 %; RBC 2.69 mil/uL (4.20-5.00); RDW-CV 15.8 % (10.5-14.5); WBC 9.6 thou/uL (4.0-11.0)
[2020-05-03 12:00] VITALS: BP 158/72
[2020-05-03 13:34] VITALS: BP 153/54
== END 2020-05-03 20:24 | disposition short-term general hospital (02) | DRG 947 ==
LOC: M.REH 15:14
PROVIDERS: Internal Medicine; Internal Medicine Nephrology; ADMIT Physical Medicine & Rehabilitation; ATTEND Physical Medicine & Rehabilitation
PROC: 5A1D70Z Performance of Urinary Filtration, Intermittent, Less than 6 Hours Per Day (ICD-10-PCS; principal; 2020-05-02)
DX: R53.81 Other malaise (principal); N18.6 End stage renal disease; T86.12 Kidney transplant failure; L02.211 Cutaneous abscess of abdominal wall; I13.11 Hypertensive heart and chronic kidney disease without heart failure, with stage 5 chronic kidney disease, or end stage renal disease; Z68.43 Body mass index [BMI] 50.0-59.9, adult; Z94.0 Kidney transplant status; E11.22 Type 2 diabetes mellitus with diabetic chronic kidney disease; G47.33 Obstructive sleep apnea (adult) (pediatric); E66.01 Morbid (severe) obesity due to excess calories; D63.1 Anemia in chronic kidney disease; E03.9 Hypothyroidism, unspecified; E87.6 Hypokalemia; E83.42 Hypomagnesemia; M17.11 Unilateral primary osteoarthritis, right knee; Y83.8 Other surgical procedures as the cause of abnormal reaction of the patient, or of later complication, without mention of misadventure at the time of the procedure; M25.551 Pain in right hip; Z99.2 Dependence on renal dialysis; Z88.1 Allergy status to other antibiotic agents; Z79.4 Long term (current) use of insulin; Z88.0 Allergy status to penicillin; Z88.8 Allergy status to other drugs, medicaments and biological substances; Y92.89 Other specified places as the place of occurrence of the external cause

== ENCOUNTER 2020-05-03 19:49 | Inpatient (IN) | payer MEDICARE, MEDICAID ==
[~2020-05-03] VITALS: Ht 165.1 cm; Wt 89.9 kg
[2020-05-03 19:50] VITALS: BP 159/63
[2020-05-04 04:21] VITALS: BP 170/69
[2020-05-04 04:45] LABS: ABSOLUTE EOSINOPHILS 0.1 thou/uL (0.0-0.7); ABSOLUTE LYMPHOCYTES 1.5 thou/uL (0.8-5.3); ABSOLUTE NEUTROPHILS 7.5 thou/uL (1.6-8.1); BASOPHILS 0.5 %; EOSINOPHILS 1.4 %; HEMOGLOBIN 7.3 gm/dL (12.0-15.0); MCH 27.5 pg (26.0-34.0); MCHC 33.1 g/dL (28.0-37.0); MCV 83.1 fL (80.0-100.0); MONOCYTES 9.5 %; MPV 7.8 fl. (7.2-11.1); NUCLEATED RBCS 0 /100WBC; PLATELET COUNT* 297 thou/uL (150-400); POLYS 73.6 %; RBC 2.65 mil/uL (4.20-5.00); RDW-CV 15.8 % (10.5-14.5); WBC 10.1 thou/uL (4.0-11.0)
[2020-05-04 05:20] LABS: ALBUMIN 2.2 g/dL (3.4-5.0); CALCIUM 6.5 mg/dL (8.5-10.1); POTASSIUM 4.4 mmol/L (3.5-5.1); TOTAL BILIRUBIN 0.4 mg/dL (<0.1-1.0); TOTAL PROTEIN 5.8 g/dL (6.4-8.2)
[2020-05-04 05:21] LABS: CREATININE 4.4 mg/dL (0.6-1.3)
[2020-05-04 07:35] VITALS: BP 146/55
[2020-05-04 15:45] VITALS: BP 152/63
[2020-05-04 22:30] VITALS: BP 126/72
[2020-05-05] VITALS: BP 164/50
[2020-05-05 03:44] LABS: ABSOLUTE BASOPHILS 0.1 thou/uL (0.0-0.2); ABSOLUTE EOSINOPHILS 0.2 thou/uL (0.0-0.7); ABSOLUTE LYMPHOCYTES 1.3 thou/uL (0.8-5.3); ABSOLUTE MONOCYTES 0.7 thou/uL (0.0-1.2); ABSOLUTE NEUTROPHILS 6.8 thou/uL (1.6-8.1); BASOPHILS 0.7 %; EOSINOPHILS 2.1 %; HEMATOCRIT 22.3 % (37.0-47.0); HEMOGLOBIN 7.3 gm/dL (12.0-15.0); LYMPHOCYTES 14.3 %; MCH 27.1 pg (26.0-34.0); MCHC 32.6 g/dL (28.0-37.0); MCV 83.2 fL (80.0-100.0); MONOCYTES 7.9 %; MPV 8.2 fl. (7.2-11.1); NUCLEATED RBCS 0 /100WBC; PLATELET COUNT* 325 thou/uL (150-400); RBC 2.68 mil/uL (4.20-5.00); RDW-CV 16.1 % (10.5-14.5); WBC 9.1 thou/uL (4.0-11.0)
[2020-05-05 03:51] LABS: ALBUMIN 2.1 g/dL (3.4-5.0); CALCIUM 6.1 mg/dL (8.5-10.1); CREATININE 4.7 mg/dL (0.6-1.3); PHOSPHORUS* 4.5 mg/dL (2.5-4.9); POTASSIUM 4.3 mmol/L (3.5-5.1)
[2020-05-05 03:54] LABS: ALBUMIN 2.1 g/dL (3.4-5.0); CALCIUM 6.3 mg/dL (8.5-10.1); CREATININE 4.8 mg/dL (0.6-1.3); POTASSIUM 4.3 mmol/L (3.5-5.1); TOTAL BILIRUBIN 0.5 mg/dL (<0.1-1.0); TOTAL PROTEIN 5.6 g/dL (6.4-8.2)
[2020-05-05 07:10] VITALS: BP 131/65
[2020-05-05 18:10] VITALS: BP 178/92
[2020-05-05 20:29] VITALS: BP 178/69
[2020-05-06 07:15] VITALS: BP 154/56
[2020-05-06 08:39] LABS: MPV 8.1 fl. (7.2-11.1)
[2020-05-06 08:41] LABS: ABSOLUTE EOSINOPHILS 0.2 thou/uL (0.0-0.7); ABSOLUTE LYMPHOCYTES 1.2 thou/uL (0.8-5.3); ABSOLUTE MONOCYTES 0.8 thou/uL (0.0-1.2); ABSOLUTE NEUTROPHILS 5.6 thou/uL (1.6-8.1); BASOPHILS 0.5 %; EOSINOPHILS 2.2 %; HEMATOCRIT 21.8 % (37.0-47.0); HEMOGLOBIN 7.2 gm/dL (12.0-15.0); LYMPHOCYTES 15.3 %; MCH 27.3 pg (26.0-34.0); MCHC 32.8 g/dL (28.0-37.0); MCV 83.2 fL (80.0-100.0); MONOCYTES 10.4 %; NUCLEATED RBCS 0 /100WBC; PLATELET COUNT* 322 thou/uL (150-400); POLYS 71.6 %; RBC 2.62 mil/uL (4.20-5.00); RDW-CV 16.4 % (10.5-14.5); WBC 7.8 thou/uL (4.0-11.0)
[2020-05-06 08:45] LABS: CALCIUM 6.4 mg/dL (8.5-10.1); MAGNESIUM 1.5 mg/dL (1.8-2.4); PHOSPHORUS* 3.6 mg/dL (2.5-4.9); POTASSIUM 4.1 mmol/L (3.5-5.1)
[2020-05-06 08:50] LABS: CREATININE 2.8 mg/dL (0.6-1.3)
[2020-05-06 16:00] VITALS: BP 167/60
[2020-05-06 20:00] VITALS: BP 151/55
[2020-05-07] VITALS (10 sets, daily range): BP systolic 132–177; BP diastolic 43–66
[2020-05-07 05:11] LABS: HEMATOCRIT 21.3 % (37.0-47.0); MCH 27.2 pg (26.0-34.0); MCHC 32.7 g/dL (28.0-37.0); MCV 83.2 fL (80.0-100.0); MPV 8.1 fl. (7.2-11.1); RBC 2.57 mil/uL (4.20-5.00); RDW-CV 16.3 % (10.5-14.5); WBC 6.3 thou/uL (4.0-11.0)
[2020-05-07 05:15] LABS: CALCIUM 7.4 mg/dL (8.5-10.1); CREATININE 3.7 mg/dL (0.6-1.3)
[2020-05-07 13:54] LABS: APTT 20.6 Seconds (25.0-31.3); INR 1.2
[2020-05-08 05:40] VITALS: BP 168/53
[2020-05-08 07:55] VITALS: BP 147/51
[2020-05-08 16:01] VITALS: BP 152/48
[2020-05-08 20:30] VITALS: BP 149/53
[2020-05-09 05:36] LABS: HEMATOCRIT 20.8 % (37.0-47.0); MCH 27.2 pg (26.0-34.0); MCHC 32.8 g/dL (28.0-37.0); MCV 82.8 fL (80.0-100.0); RBC 2.52 mil/uL (4.20-5.00); RDW-CV 16.4 % (10.5-14.5); WBC 6.1 thou/uL (4.0-11.0)
[2020-05-09 06:18] LABS: HEMOGLOBIN 6.8 gm/dL (12.0-15.0)
[2020-05-09 08:37] LABS: CALCIUM 7.1 mg/dL (8.5-10.1); CREATININE 4.1 mg/dL (0.6-1.3); POTASSIUM 3.6 mmol/L (3.5-5.1)
[2020-05-09 08:38] LABS: % SATURATION 29 % (20-39); IRON 35 ug/dL (50-175)
[2020-05-09 14:43] VITALS: BP 157/59; BP 158/58; BP 164/54; BP 176/60; BP 179/63
[2020-05-09 20:15] VITALS: BP 160/52
[2020-05-09 21:15] VITALS: BP 160/52
[2020-05-09 21:15] LABS: HEMATOCRIT 24.7 % (37.0-47.0); HEMOGLOBIN 8.3 gm/dL (12.0-15.0); MCH 27.6 pg (26.0-34.0); MCHC 33.4 g/dL (28.0-37.0); MCV 82.5 fL (80.0-100.0); MPV 7.9 fl. (7.2-11.1); NUCLEATED RBCS 0 /100WBC; PLATELET COUNT* 342 thou/uL (150-400); RDW-CV 16.6 % (10.5-14.5); WBC 6.1 thou/uL (4.0-11.0)
[2020-05-09 21:17] LABS: CALCIUM 7.2 mg/dL (8.5-10.1); POTASSIUM 3.6 mmol/L (3.5-5.1)
[2020-05-09 22:16] LABS: ABSOLUTE BASOPHILS 0.1 thou/uL (0.0-0.2); ABSOLUTE EOSINOPHILS 0.2 thou/uL (0.0-0.7); ABSOLUTE LYMPHOCYTES 1.8 thou/uL (0.8-5.3); ABSOLUTE MONOCYTES 0.4 thou/uL (0.0-1.2); ABSOLUTE NEUTROPHILS 3.5 thou/uL (1.6-8.1); ATYPICAL LYMPHS 3 %; PLATELET ESTIMATE ADEQUATE
[2020-05-09 22:18] LABS: ANISOCYTOSIS Occasional; LARGE PLATELETS FEW
[2020-05-09 23:00] VITALS: BP 180/63
[2020-05-09 23:43] VITALS: BP 169/62
[2020-05-10 08:00] VITALS: BP 188/65
[2020-05-10 16:00] VITALS: BP 162/50
[2020-05-10 21:00] VITALS: BP 181/67
[2020-05-11 03:51] LABS: ABSOLUTE BASOPHILS 0.1 thou/uL (0.0-0.2); ABSOLUTE EOSINOPHILS 0.4 thou/uL (0.0-0.7); ABSOLUTE LYMPHOCYTES 1.6 thou/uL (0.8-5.3); ABSOLUTE MONOCYTES 0.6 thou/uL (0.0-1.2); ABSOLUTE NEUTROPHILS 4.2 thou/uL (1.6-8.1); BASOPHILS 0.9 %; EOSINOPHILS 5.8 %; HEMATOCRIT 25.1 % (37.0-47.0); HEMOGLOBIN 8.3 gm/dL (12.0-15.0); LYMPHOCYTES 23.3 %; MCH 27.2 pg (26.0-34.0); MCHC 32.9 g/dL (28.0-37.0); MCV 82.7 fL (80.0-100.0); MONOCYTES 9.4 %; MPV 7.8 fl. (7.2-11.1); NUCLEATED RBCS 0 /100WBC; PLATELET COUNT* 364 thou/uL (150-400); POLYS 60.6 %; RBC 3.04 mil/uL (4.20-5.00); RDW-CV 16.3 % (10.5-14.5); WBC 6.9 thou/uL (4.0-11.0)
[2020-05-11 04:12] LABS: ALBUMIN 2.3 g/dL (3.4-5.0); CALCIUM 7.2 mg/dL (8.5-10.1); POTASSIUM 3.4 mmol/L (3.5-5.1); TOTAL BILIRUBIN 0.4 mg/dL (<0.1-1.0); TOTAL PROTEIN 5.8 g/dL (6.4-8.2)
[2020-05-11 04:39] LABS: CREATININE 4.1 mg/dL (0.6-1.3)
[2020-05-11 06:53] VITALS: BP 187/76
[2020-05-11 07:30] VITALS: BP 183/74
[2020-05-11] MEDS ORDERED: LINEZOLID600 MG PO (11:23)
[2020-05-11] MEDS ORDERED: HEPARIN SO5000 UNIT/ SUBQ (11:23)
[2020-05-11] MEDS ORDERED: EPOGEN2000 UNIT/ IVPUSH (11:23)
[2020-05-11 16:18] VITALS: BP 139/51
[2020-05-12 04:00] LABS: HEMATOCRIT 24.2 % (37.0-47.0); MCH 27.5 pg (26.0-34.0); MCHC 33.2 g/dL (28.0-37.0); MCV 82.9 fL (80.0-100.0); MPV 7.7 fl. (7.2-11.1); NUCLEATED RBCS 0 /100WBC; PLATELET COUNT* 388 thou/uL (150-400); RBC 2.92 mil/uL (4.20-5.00); RDW-CV 16.7 % (10.5-14.5); WBC 6.6 thou/uL (4.0-11.0)
[2020-05-12 04:17] LABS: ALBUMIN 2.3 g/dL (3.4-5.0); CREATININE 4.7 mg/dL (0.6-1.3); POTASSIUM 3.7 mmol/L (3.5-5.1); TOTAL BILIRUBIN 0.4 mg/dL (<0.1-1.0); TOTAL PROTEIN 5.7 g/dL (6.4-8.2)
[2020-05-12 07:01] LABS: ABSOLUTE EOSINOPHILS 0.3 thou/uL (0.0-0.7); ABSOLUTE LYMPHOCYTES 1.2 thou/uL (0.8-5.3); ABSOLUTE MONOCYTES 0.6 thou/uL (0.0-1.2); ABSOLUTE NEUTROPHILS 4.6 thou/uL (1.6-8.1); METAMYELOCYTES 2 %; PLATELET ESTIMATE ADEQUATE; POLYCHROMASIA 1+
[2020-05-12 07:30] VITALS: BP 166/73
[2020-05-13 04:16] LABS: ABSOLUTE BASOPHILS 0.1 thou/uL (0.0-0.2); ABSOLUTE EOSINOPHILS 0.3 thou/uL (0.0-0.7); ABSOLUTE LYMPHOCYTES 1.4 thou/uL (0.8-5.3); ABSOLUTE MONOCYTES 0.7 thou/uL (0.0-1.2); ABSOLUTE NEUTROPHILS 3.7 thou/uL (1.6-8.1); BASOPHILS 1.2 %; EOSINOPHILS 5.5 %; HEMATOCRIT 27.1 % (37.0-47.0); HEMOGLOBIN 9.1 gm/dL (12.0-15.0); LYMPHOCYTES 22.8 %; MCH 27.9 pg (26.0-34.0); MCHC 33.5 g/dL (28.0-37.0); MCV 83.3 fL (80.0-100.0); MPV 7.4 fl. (7.2-11.1); NUCLEATED RBCS 0 /100WBC; PLATELET COUNT* 391 thou/uL (150-400); POLYS 59.5 %; RBC 3.25 mil/uL (4.20-5.00); RDW-CV 16.6 % (10.5-14.5); WBC 6.2 thou/uL (4.0-11.0)
[2020-05-13 04:34] LABS: ALBUMIN 2.3 g/dL (3.4-5.0); CALCIUM 7.2 mg/dL (8.5-10.1); POTASSIUM 3.9 mmol/L (3.5-5.1); TOTAL BILIRUBIN 0.5 mg/dL (<0.1-1.0); TOTAL PROTEIN 6.1 g/dL (6.4-8.2)
[2020-05-13 04:48] LABS: CREATININE 3.4 mg/dL (0.6-1.3)
== END 2020-05-12 11:45 | DRG 393 ==
LOC: M.ORTHSURG 19:49 → M.REH 19:57 → M.ORTHSURG 05-12 10:03
PROVIDERS: Family Medicine; Internal Medicine; Internal Medicine Nephrology; Nurse Practitioner; Radiology Diagnostic Radiology; Surgery; ADMIT Internal Medicine; ATTEND Internal Medicine
PROC: 5A1D70Z Performance of Urinary Filtration, Intermittent, Less than 6 Hours Per Day (ICD-10-PCS; principal; 2020-05-05)
PROC: 0W9G30Z Drainage of Peritoneal Cavity with Drainage Device, Percutaneous Approach (ICD-10-PCS; 2020-05-07)
PROC: 5A1D70Z Performance of Urinary Filtration, Intermittent, Less than 6 Hours Per Day (ICD-10-PCS; 2020-05-07)
PROC: 30233N1 Transfusion of Nonautologous Red Blood Cells into Peripheral Vein, Percutaneous Approach (ICD-10-PCS; 2020-05-09)
PROC: 5A1D70Z Performance of Urinary Filtration, Intermittent, Less than 6 Hours Per Day (ICD-10-PCS; 2020-05-09)
PROC: 5A1D70Z Performance of Urinary Filtration, Intermittent, Less than 6 Hours Per Day (ICD-10-PCS; 2020-05-12)
DX: K63.1 Perforation of intestine (nontraumatic) (principal); K68.19 Other retroperitoneal abscess; E43 Unspecified severe protein-calorie malnutrition; N18.6 End stage renal disease; I12.0 Hypertensive chronic kidney disease with stage 5 chronic kidney disease or end stage renal disease; T86.12 Kidney transplant failure; E87.2 Acidosis; N25.81 Secondary hyperparathyroidism of renal origin; K63.0 Abscess of intestine; J98.11 Atelectasis; E11.22 Type 2 diabetes mellitus with diabetic chronic kidney disease; K66.8 Other specified disorders of peritoneum; E83.42 Hypomagnesemia; M25.551 Pain in right hip; E03.9 Hypothyroidism, unspecified; E87.6 Hypokalemia; E66.9 Obesity, unspecified; Z96.652 Presence of left artificial knee joint; E83.39 Other disorders of phosphorus metabolism; E83.52 Hypercalcemia; B95.61 Methicillin susceptible Staphylococcus aureus infection as the cause of diseases classified elsewhere; E83.51 Hypocalcemia; B96.20 Unspecified Escherichia coli [E. coli] as the cause of diseases classified elsewhere; D63.1 Anemia in chronic kidney disease; Z88.8 Allergy status to other drugs, medicaments and biological substances; Z88.0 Allergy status to penicillin; Z88.1 Allergy status to other antibiotic agents; Z79.899 Other long term (current) drug therapy; Z79.4 Long term (current) use of insulin; Z90.710 Acquired absence of both cervix and uterus; Z99.2 Dependence on renal dialysis

== ENCOUNTER 2020-05-12 09:42 | Inpatient (IN) | payer MEDICARE, MEDICAID ==
[~2020-05-12] VITALS: Ht 167.6 cm; Wt 70.5 kg
[~2020-05-12 09:42] MED LIST changes: +EPOGEN2000 UNIT/ IVPUSH; +HEPARIN SO5000 UNIT/ SUBQ; +LINEZOLID600 MG PO
[2020-05-12 12:27] VITALS: BP 156/66
[2020-05-12 19:00] VITALS: BP 166/68
[2020-05-13 08:00] VITALS: BP 183/74
[2020-05-13 19:50] VITALS: BP 161/56
[2020-05-14 04:05] LABS: ABSOLUTE EOSINOPHILS 0.4 thou/uL (0.0-0.7); ABSOLUTE LYMPHOCYTES 1.8 thou/uL (0.8-5.3); ABSOLUTE MONOCYTES 0.7 thou/uL (0.0-1.2); ABSOLUTE NEUTROPHILS 4.5 thou/uL (1.6-8.1); BASOPHILS 0.6 %; EOSINOPHILS 5.6 %; HEMATOCRIT 24.6 % (37.0-47.0); HEMOGLOBIN 8.1 gm/dL (12.0-15.0); LYMPHOCYTES 24.5 %; MCH 27.5 pg (26.0-34.0); MCHC 32.8 g/dL (28.0-37.0); MCV 83.7 fL (80.0-100.0); MONOCYTES 9.8 %; MPV 7.5 fl. (7.2-11.1); NUCLEATED RBCS 0 /100WBC; PLATELET COUNT* 363 thou/uL (150-400); POLYS 59.5 %; RBC 2.94 mil/uL (4.20-5.00); RDW-CV 16.9 % (10.5-14.5); WBC 7.5 thou/uL (4.0-11.0)
[2020-05-14 04:23] LABS: ALBUMIN 2.3 g/dL (3.4-5.0); CALCIUM 7.1 mg/dL (8.5-10.1); MAGNESIUM 1.6 mg/dL (1.8-2.4); POTASSIUM 4.1 mmol/L (3.5-5.1); TOTAL BILIRUBIN 0.4 mg/dL (<0.1-1.0); TOTAL PROTEIN 5.8 g/dL (6.4-8.2)
[2020-05-14 04:29] LABS: CREATININE 4.4 mg/dL (0.6-1.3)
[2020-05-14 08:00] VITALS: BP 110/62
[2020-05-14 12:47] LABS: CALCIUM 7.5 mg/dL (8.5-10.1); CREATININE 4.3 mg/dL (0.6-1.3); PHOSPHORUS* 3.5 mg/dL (2.5-4.9)
[2020-05-14 19:55] VITALS: BP 149/69
[2020-05-15 08:00] VITALS: BP 112/64
[2020-05-15 20:00] VITALS: BP 136/44
[2020-05-16 07:00] VITALS: BP 166/59
[2020-05-16 20:50] VITALS: BP 149/57
[2020-05-17 03:05] LABS: HEPATITIS B SURFACE AG Negative (Negative)
[2020-05-17 07:45] VITALS: BP 165/61
[2020-05-17 19:55] VITALS: BP 157/58
[2020-05-18 07:45] VITALS: BP 180/62
[2020-05-18 19:30] VITALS: BP 120/60
[2020-05-19 03:51] LABS: HEMATOCRIT 24.8 % (37.0-47.0); HEMOGLOBIN 8.2 gm/dL (12.0-15.0)
[2020-05-19 04:08] LABS: ALBUMIN 2.7 g/dL (3.4-5.0); CALCIUM 7.2 mg/dL (8.5-10.1); CREATININE 5.3 mg/dL (0.6-1.3); PHOSPHORUS* 5.5 mg/dL (2.5-4.9); POTASSIUM 3.8 mmol/L (3.5-5.1)
[2020-05-19 08:00] VITALS: BP 169/73
[2020-05-19 19:00] VITALS: BP 139/54
[2020-05-20 04:24] LABS: CALCIUM 7.3 mg/dL (8.5-10.1); POTASSIUM 4.2 mmol/L (3.5-5.1)
[2020-05-20 04:37] LABS: HEMATOCRIT 26.5 % (37.0-47.0); HEMOGLOBIN 8.9 gm/dL (12.0-15.0); MCH 28.7 pg (26.0-34.0); MCHC 33.6 g/dL (28.0-37.0); MCV 85.4 fL (80.0-100.0); MPV 7.2 fl. (7.2-11.1); RBC 3.1 mil/uL (4.20-5.00); RDW-CV 17.6 % (10.5-14.5); WBC 5.4 thou/uL (4.0-11.0)
[2020-05-20 05:19] LABS: CREATININE 3.5 mg/dL (0.6-1.3)
[2020-05-20 07:00] VITALS: BP 138/46
[2020-05-20 19:00] VITALS: BP 143/71
[2020-05-21 05:11] LABS: HEMATOCRIT 25.6 % (37.0-47.0); HEMOGLOBIN 8.5 gm/dL (12.0-15.0); MCH 28.5 pg (26.0-34.0); MCHC 33.3 g/dL (28.0-37.0); MCV 85.4 fL (80.0-100.0); MPV 7.3 fl. (7.2-11.1); RDW-CV 17.8 % (10.5-14.5); WBC 5.7 thou/uL (4.0-11.0)
[2020-05-21 05:22] LABS: CALCIUM 7.3 mg/dL (8.5-10.1); CREATININE 4.4 mg/dL (0.6-1.3); POTASSIUM 4.4 mmol/L (3.5-5.1)
[2020-05-21 07:52] VITALS: BP 142/55
[2020-05-21 19:45] VITALS: BP 137/48
[2020-05-22 08:00] VITALS: BP 124/46
[2020-05-22 19:50] VITALS: BP 137/52
[2020-05-23 08:00] VITALS: BP 145/59
[2020-05-23 19:46] VITALS: BP 143/55
[2020-05-24 08:00] VITALS: BP 165/62
[2020-05-24 19:43] VITALS: BP 128/52
[2020-05-25] VITALS (7 sets, daily range): BP systolic 128–154; BP diastolic 58–75
[2020-05-26 19:00] VITALS: BP 111/48
[2020-05-26 21:15] VITALS: BP 143/60
[2020-05-27 07:30] VITALS: BP 155/63
[2020-05-27 07:45] VITALS: BP 155/63
[2020-05-27 13:54] LABS: HEMATOCRIT 31.8 % (37.0-47.0); HEMOGLOBIN 10.5 gm/dL (12.0-15.0); MCH 29.3 pg (26.0-34.0); MCHC 32.9 g/dL (28.0-37.0); MPV 7.4 fl. (7.2-11.1); RBC 3.58 mil/uL (4.20-5.00); WBC 7.4 thou/uL (4.0-11.0)
[2020-05-27 14:21] LABS: ALBUMIN 3.4 g/dL (3.4-5.0); CALCIUM 7.9 mg/dL (8.5-10.1); CREATININE 4.6 mg/dL (0.6-1.3); POTASSIUM 4.5 mmol/L (3.5-5.1); TOTAL BILIRUBIN 0.6 mg/dL (<0.1-1.0); TOTAL PROTEIN 7.4 g/dL (6.4-8.2)
[2020-05-27 19:50] VITALS: BP 125/45
[2020-05-27 21:15] VITALS: BP 141/59
[2020-05-28 08:12] VITALS: BP 125/57
[2020-05-28 19:50] VITALS: BP 132/60
[2020-05-29 08:00] VITALS: BP 168/71
[2020-05-29 11:00] VITALS: BP 118/70
[2020-05-29 11:02] VITALS: BP 113/55
[2020-05-29 16:06] VITALS: BP 118/70; BP 188/70
[2020-05-29 16:07] VITALS: BP 113/55
[2020-05-29 20:00] VITALS: BP 141/54
[2020-05-30 07:45] VITALS: BP 158/74
[2020-05-30 19:00] VITALS: BP 123/75
[2020-05-31 09:00] VITALS: BP 129/52
[2020-05-31 19:27] VITALS: BP 118/69
[2020-06-01 07:00] VITALS: BP 139/53
[2020-06-01 07:30] VITALS: BP 139/53
[2020-06-01 19:00] VITALS: BP 141/68
[2020-06-01 20:00] VITALS: BP 141/68
[2020-06-02 03:55] LABS: HEMATOCRIT 31.3 % (37.0-47.0); HEMOGLOBIN 9.9 gm/dL (12.0-15.0); MCH 28.4 pg (26.0-34.0); MCHC 31.6 g/dL (28.0-37.0); MCV 89.7 fL (80.0-100.0); MPV 8.1 fl. (7.2-11.1); RBC 3.49 mil/uL (4.20-5.00); RDW-CV 24.9 % (10.5-14.5); WBC 7.9 thou/uL (4.0-11.0)
[2020-06-02 04:06] LABS: ALBUMIN 3.4 g/dL (3.4-5.0); CALCIUM 8.3 mg/dL (8.5-10.1); CREATININE 7.2 mg/dL (0.6-1.3); MAGNESIUM 2.2 mg/dL (1.8-2.4); POTASSIUM 4.2 mmol/L (3.5-5.1); TOTAL BILIRUBIN 0.5 mg/dL (<0.1-1.0); TOTAL PROTEIN 7.8 g/dL (6.4-8.2)
[2020-06-02 04:47] LABS: ALBUMIN 3.5 g/dL (3.4-5.0); CALCIUM 8.2 mg/dL (8.5-10.1); CREATININE 7.2 mg/dL (0.6-1.3); POTASSIUM 4.3 mmol/L (3.5-5.1)
[2020-06-02 07:30] VITALS: BP 154/61
[2020-06-02 10:00] VITALS: BP 116/78; BP 121/80
[2020-06-02 19:00] VITALS: BP 154/58
[2020-06-02 20:00] VITALS: BP 154/58
[2020-06-03 07:30] VITALS: BP 139/57
[2020-06-03 19:00] VITALS: BP 131/65
[2020-06-04 05:31] LABS: ALBUMIN 3.5 g/dL (3.4-5.0); CALCIUM 8.1 mg/dL (8.5-10.1); PHOSPHORUS* 7.3 mg/dL (2.5-4.9); POTASSIUM 3.8 mmol/L (3.5-5.1)
[2020-06-04 05:59] VITALS: BP 164/63
[2020-06-04 08:00] VITALS: BP 143/55
[2020-06-04 19:55] VITALS: BP 128/60
[2020-06-05 08:00] VITALS: BP 115/55
[2020-06-05 20:22] VITALS: BP 111/59
[2020-06-06 08:42] VITALS: BP 130/63
[2020-06-06 20:00] VITALS: BP 138/66; BP 138/67
[2020-06-07 08:19] VITALS: BP 118/67
[2020-06-07 20:00] VITALS: BP 130/66
[2020-06-08 08:30] VITALS: BP 125/57
[2020-06-08] MEDS ORDERED: CATAPRES0.1 MG PO (14:42)
[2020-06-08] MEDS ORDERED: LABETALOL HCL100 MG PO (14:42)
[2020-06-08 19:55] VITALS: BP 122/55
[2020-06-09 08:00] VITALS: BP 152/62
[2020-06-09 19:45] VITALS: BP 124/57
[2020-06-10 09:44] VITALS: BP 138/57
[2020-06-10 09:49] VITALS: BP 138/57
[2020-06-10] MEDS ORDERED: RAPAMUNE1 MG PO (10:29)
[2020-06-10 12:25] VITALS: BP 138/57
== END 2020-06-10 12:45 | disposition home health service (06) | DRG 947 ==
LOC: M.REH 09:42
PROVIDERS: Family Medicine; Internal Medicine; Internal Medicine Nephrology; ADMIT Physical Medicine & Rehabilitation; ATTEND Physical Medicine & Rehabilitation
PROC: 5A1D70Z Performance of Urinary Filtration, Intermittent, Less than 6 Hours Per Day (ICD-10-PCS; principal; 2020-05-16)
PROC: 5A1D70Z Performance of Urinary Filtration, Intermittent, Less than 6 Hours Per Day (ICD-10-PCS; 2020-05-19)
PROC: 5A1D70Z Performance of Urinary Filtration, Intermittent, Less than 6 Hours Per Day (ICD-10-PCS; 2020-05-21)
PROC: 5A1D70Z Performance of Urinary Filtration, Intermittent, Less than 6 Hours Per Day (ICD-10-PCS; 2020-05-23)
PROC: 5A1D70Z Performance of Urinary Filtration, Intermittent, Less than 6 Hours Per Day (ICD-10-PCS; 2020-05-26)
PROC: 5A1D70Z Performance of Urinary Filtration, Intermittent, Less than 6 Hours Per Day (ICD-10-PCS; 2020-05-28)
PROC: 5A1D70Z Performance of Urinary Filtration, Intermittent, Less than 6 Hours Per Day (ICD-10-PCS; 2020-06-09)
DX: R53.81 Other malaise (principal); N18.6 End stage renal disease; K63.1 Perforation of intestine (nontraumatic); K63.0 Abscess of intestine; I12.0 Hypertensive chronic kidney disease with stage 5 chronic kidney disease or end stage renal disease; T86.12 Kidney transplant failure; N25.81 Secondary hyperparathyroidism of renal origin; E66.9 Obesity, unspecified; Z96.642 Presence of left artificial hip joint; K66.8 Other specified disorders of peritoneum; E11.22 Type 2 diabetes mellitus with diabetic chronic kidney disease; Y83.0 Surgical operation with transplant of whole organ as the cause of abnormal reaction of the patient, or of later complication, without mention of misadventure at the time of the procedure; D64.9 Anemia, unspecified; E89.0 Postprocedural hypothyroidism; M17.0 Bilateral primary osteoarthritis of knee; Z88.0 Allergy status to penicillin; Z88.1 Allergy status to other antibiotic agents; Z88.8 Allergy status to other drugs, medicaments and biological substances; Z90.710 Acquired absence of both cervix and uterus; Y92.89 Other specified places as the place of occurrence of the external cause; Z99.3 Dependence on wheelchair; Z68.25 Body mass index [BMI] 25.0-25.9, adult

== ENCOUNTER → 2020-06-19 | Outpatient (CLI) | payer MEDICARE, MEDICAID ==
[~2020-06-19] VITALS: Ht 165.1 cm; Wt 68.0 kg
[~2020-06-19] MED LIST changes: +CATAPRES0.1 MG PO
[2020-06-19 10:14] VITALS: BP 158/63
== END ==
LOC: M.INT 07:29
PROVIDERS: ATTEND Internal Medicine Nephrology
DX: I12.0 Hypertensive chronic kidney disease with stage 5 chronic kidney disease or end stage renal disease (principal); E11.22 Type 2 diabetes mellitus with diabetic chronic kidney disease; N18.6 End stage renal disease; E66.9 Obesity, unspecified; Z90.710 Acquired absence of both cervix and uterus; Z98.890 Other specified postprocedural states; Z79.899 Other long term (current) drug therapy

== ENCOUNTER → 2020-07-20 | Outpatient (CLI) | payer MEDICARE, MEDICAID ==
[~2020-07-20] MED LIST changes: +FENOFIBRATE54 MG PO; +FUROSEMIDE 40 M40 MG PO; +LIPITOR 20 MG T20 M1 PO; +NORCO 5-325 TA1 EAC2 PO
== END ==
LOC: M.LAB 10:01
PROVIDERS: ATTEND Surgery
DX: Z01.812 Encounter for preprocedural laboratory examination (principal); Z20.828 Contact with and (suspected) exposure to other viral communicable diseases; N19 Unspecified kidney failure

== ENCOUNTER → 2020-07-23 | Day surgery (SDC) | payer MEDICARE, MEDICAID ==
--- NOTE | ~2020-07-23 | OP ---
[facility] [address] [place] [address] OPERATIVE REPORT Name: RADHA HOLDER Room: [facility]#: [id number] Admission: 07/23/20 Attend Phys: David Shepard Discharge: Date of : 49 Report #: [id number] THIS REPORT FOR: //name// cc: Desmond Ruffin Dimitri DO ~ CC: Bekah Shepard DATE OF SERVICE: 07/23/2020 PREOPERATIVE DIAGNOSIS: End-stage renal disease. POSTOPERATIVE DIAGNOSIS: End-stage renal disease. OPERATION: Laparoscopic placement of tunneled intraperitoneal catheter. SURGEON: David Shepard MD ANESTHESIA: General. ESTIMATED BLOOD LOSS: Minimal. SPECIMEN: None. DESCRIPTION OF PROCEDURE: After informed consent was obtained, the patient was brought to the operating room and placed supine. SCDs were placed and working, preoperative antibiotics were administered, general anesthesia was induced. The abdomen was prepped and draped in the usual sterile fashion. A 5 mm incision was made in the left upper quadrant. A 5 mm trocar was placed under direct vision. Pneumoperitoneum was established. The right rectus sheath, 8 mm trocar was placed. A 62 cm Covidien catheter was placed through the trocar. The catheter was then placed down in the pelvis. Catheter was then pulled back, so that the internal cuff was in the rectus sheath. Catheter was then tunneled to the right upper quadrant of the abdomen. It flushed easily with 750 mL of heparinized saline. It drained easily as well. The skin was then closed with 4-0 Monocryl. Incisions were dressed with gauze and an occlusive dressing was applied. COMPLICATIONS: None. DISPOSITION: The patient was taken to recovery in satisfactory condition. By: 1222 1228David Shepard MD /nt
[2020-07-23 10:26] LABS: HEMATOCRIT 38.5 % (37.0-47.0); HEMOGLOBIN 12.4 gm/dL (12.0-15.0); MCH 29.6 pg (26.0-34.0); MCHC 32.2 g/dL (28.0-37.0); MCV 91.9 fL (80.0-100.0); MPV 7.5 fl. (7.2-11.1); RBC 4.19 mil/uL (4.20-5.00); RDW-CV 17.2 % (10.5-14.5); WBC 6.6 thou/uL (4.0-11.0)
[2020-07-23 10:42] LABS: CALCIUM 8.7 mg/dL (8.5-10.1); CREATININE 3.8 mg/dL (0.6-1.3); POTASSIUM 4.3 mmol/L (3.5-5.1)
== END | disposition home or self-care (01) ==
LOC: M.SUR 06:51
PROVIDERS: ATTEND Surgery
DX: I12.0 Hypertensive chronic kidney disease with stage 5 chronic kidney disease or end stage renal disease (principal); E11.22 Type 2 diabetes mellitus with diabetic chronic kidney disease; N18.6 End stage renal disease; D64.9 Anemia, unspecified; Z90.710 Acquired absence of both cervix and uterus; Z94.0 Kidney transplant status; Z96.642 Presence of left artificial hip joint; Z98.890 Other specified postprocedural states; Z79.899 Other long term (current) drug therapy; Z88.0 Allergy status to penicillin; Z88.8 Allergy status to other drugs, medicaments and biological substances

== ENCOUNTER 2020-11-02 15:58 | Inpatient (IN) | payer MEDICARE, MEDICAID ==
[~2020-11-02] VITALS: Ht 167.6 cm; Wt 76.7 kg
--- NOTE | ~2020-11-02 | CON ---
[address] [address] CONSULTATION Name: RADHA HOLDER Room: [address] IN .R.#: [id number] Admission: 11/02/20 Attend Phys: Brian Stoner, Discharge: Date of : 49 Report #: [id number] THIS REPORT FOR: cc: Desmond Ruffin Dimitri DO ~ Vasudeva, Amita MD DATE OF SERVICE: 11/03/2020 NEPHROLOGY CONSULTATION CONSULTING PHYSICIAN: Brian Stoner MD REASON FOR NEPHROLOGY CONSULTATION: ESRD, on peritoneal dialysis for peritoneal dialysis needs. REASON FOR ADMISSION: Abdominal pain and diarrhea. HISTORY OF PRESENT ILLNESS: This is a 75-year-old female with history of end-stage renal disease, on peritoneal dialysis. She uses a cycler, came in with abdominal pain, body aches, fatigue and diarrhea. Her PD fluid has been clear. She was hooked up to the cycler even last night. She has not been having any fevers. PD fluid did not show any infection. Abdominal CT scan showed thickened gallbladder wall and General Surgery has been consulted for that and she is n.p.o. currently. She feels better this morning. A 750 mL of UF with PD last night. She does have leukocytosis. Her white count is 17,000. ALLERGIES: PENICILLIN, QUINOLONES, CLINDAMYCIN, CIPROFLOXACIN. REVIEW OF SYSTEMS: As mentioned in history of present illness, weakness, otherwise 10-point review of systems done, negative. PAST MEDICAL AND SURGICAL HISTORY: Includes diabetes type 2. She has a history of kidney transplant in 1998, which failed and she is on PD; hysterectomy; parathyroidectomy; chronic edema; ; left total hip replacement; pain in left leg; obesity; and hypertension. FAMILY HISTORY: Noncontributory. SOCIAL HISTORY: She lives at home. She does not smoke, drink alcohol or use illicit drugs. HOME MEDICATIONS: Include Tresiba, labetalol, sirolimus, Tylenol, prednisone, Dialyvite, Effexor, NovoLog, Celexa, calcitriol, Lipitor, fenofibrate, furosemide, famotidine, [place] [address] CONSULTATION Name: RADHA HOLDER Room: [address]#: [id number] Admission: 11/02/20 Attend Phys: Brian Stoner, Discharge: Date of : 49 Report #: [id number] PHYSICAL EXAMINATION: VITAL SIGNS: Her blood pressure is 133/56, her pulse ox is 95%, temperature 36.5 and pulse is 104, respiratory rate is 17. GENERAL: She is awake and alert, oriented x 3. HEAD AND EYES: Atraumatic and normocephalic. Conjunctivae normal. EARS, NOSE, AND THROAT: Normal ears and nose. Mucous membranes are moist. NECK: No JVD. CHEST: Bilaterally diminished breath sounds. No crackles. CARDIOVASCULAR: S1, S2 normal. No murmurs. ABDOMEN: Soft, nondistended, nontender. PD catheter in right lower quadrant is intact. There is no erythema or discharge around the site. EXTREMITIES: Lower extremities, there is 1+ bilateral ankle edema. NEUROLOGICAL FUNCTION: Grossly intact. PSYCHIATRIC: Mood and affect seems to be normal. LABORATORY DATA: White count is 17,000, hemoglobin is 12.0. Sodium is 134, potassium is 3.1, BUN is 50. Other labs are reviewed. IMAGING: Abdominal ultrasound, and abdominal and pelvic CT scan were reviewed. ASSESSMENT: 1. End-stage renal disease, on peritoneal dialysis. 2. Hypokalemia. 3. Diarrhea, abdominal pain. No evidence of any peritonitis. Thickened gallbladder wall. General Surgery has been consulted. 4. Leukocytosis as per primary team. 5. Polycystic kidney disease led to her end-stage renal disease. 6. History of kidney transplant. 7. Nausea. 8. Hypertension. 9. She also has a history of diabetes type 2. We will defer to Internal Medicine for treatment of that. PLAN: 1. Hypokalemia, potassium has been replaced. 2. We will continue her PD tonight. She normally does 5 exchanges, uses 2-liter dwell volume, each dwell is 1-1/2 hour long. Her dry weight is at 69 kilograms as outpatient and she alternates between 1.5% and 2.5% dextrose solution. I will use all 2.5% tonight. 3. No evidence [place] [address] CONSULTATION Name: GALLORADHA L Room: [address] IN [facility]#: [id number] Admission: 11/02/20 Attend Phys: Brian Stoner, Discharge: Date of : 49 Report #: [id number] Thank you for this consultation. We will continue to follow with you for her dialysis needs. Discussed with the patient and the patient's nurse. By: 0851 0922Tamera Mast MD /lokesh
[2020-11-02 16:11] VITALS: BP 129/60
[2020-11-02] MEDS ORDERED: TRESIBA FL200 UNIT/1 SUBQ (16:30)
[2020-11-02 17:10] LABS: HEMATOCRIT 35.8 % (37.0-47.0); HEMOGLOBIN 11.6 gm/dL (12.0-15.0); MCH 27.2 pg (26.0-34.0); MCHC 32.3 g/dL (28.0-37.0); MCV 84.2 fL (80.0-100.0); MPV 7.6 fl. (7.2-11.1); NUCLEATED RBCS 0 /100WBC; PLATELET COUNT* 282 thou/uL (150-400); RBC 4.26 mil/uL (4.20-5.00); WBC 16.6 thou/uL (4.0-11.0)
[2020-11-02 18:34] LABS: POTASSIUM 3.1 mmol/L (3.5-5.1)
[2020-11-02 18:35] LABS: CREATININE 4.9 mg/dL (0.6-1.3); TOTAL BILIRUBIN 0.5 mg/dL (<0.1-1.0)
[2020-11-02 18:41] LABS: ABSOLUTE LYMPHOCYTES 0.5 thou/uL (0.8-5.3); ABSOLUTE MONOCYTES 0.2 thou/uL (0.0-1.2); ABSOLUTE NEUTROPHILS 15.9 thou/uL (1.6-8.1); ANISOCYTOSIS 1+; MICROCYTES 1+; PLATELET ESTIMATE ADEQUATE
[2020-11-02 21:05] VITALS: BP 117/58
[2020-11-02 21:30] VITALS: BP 96/68
[2020-11-02 23:03] LABS: URINE BILIRUBIN NEGATIVE (Negative); URINE BLOOD 3+ (Negative); URINE CLARITY CLEAR; URINE COLOR YELLOW; URINE GLUCOSE-RANDOM 2+ (Negative); URINE KETONES NEGATIVE (Negative); URINE LEUKOCYTES-REFLEX NEGATIVE (Negative); URINE NITRITE-REFLEX NEGATIVE (Negative); URINE PROTEIN 2+ (Negative); URINE UROBILINOGEN 0.2 E.U./dl (0.2-1.0)
[2020-11-02 23:24] LABS: CASTS None Seen /LPF (None Seen); SQUAMOUS NONE SEEN /LPF (0-3)
[2020-11-02 23:25] LABS: BACTERIA-REFLEX None Seen /HPF (None Seen); CRYSTALS None Seen /LPF (None Seen); URINE RBC >20 Many /HPF (0-2); URINE WBC-REFLEX None Seen /HPF (0-5)
[2020-11-02 23:42] VITALS: BP 118/62
[2020-11-03] MEDS ORDERED: LABETALOL HCL100 MG PO (01:00)
[2020-11-03] MEDS ORDERED: RAPAMUNE1 MG PO (01:01)
[2020-11-03] MEDS ORDERED: TYLENOL325 M1 PO (01:03)
[2020-11-03 01:34] LABS: BF RBC <1000 /mm3
[2020-11-03 01:44] LABS: TOTAL CELL COUNT 35 /mm3
[2020-11-03 01:50] LABS: CLARITY CLEAR; TOTAL VOLUME 60 ml
[2020-11-03 03:05] LABS: BF LYMPHOCYTES 30 %; BF MONOCYTES 10 %; BF POLYS 57 %; BODY FLUID BANDS 3 %
[2020-11-03 03:06] LABS: SOURCE ABDOMINAL
[2020-11-03 04:20] VITALS: BP 133/56
[2020-11-03 08:00] VITALS: BP 124/56
[2020-11-03 09:10] LABS: ABSOLUTE LYMPHOCYTES 0.2 thou/uL (0.8-5.3); ABSOLUTE NEUTROPHILS 2.1 thou/uL (1.6-8.1); BASOPHILS 1.7 %; EOSINOPHILS 1.2 %; HEMATOCRIT 38.4 % (37.0-47.0); HEMOGLOBIN 12.4 gm/dL (12.0-15.0); MCH 27.2 pg (26.0-34.0); MCHC 32.3 g/dL (28.0-37.0); MCV 84.1 fL (80.0-100.0); MONOCYTES 0.3 %; MPV 8.2 fl. (7.2-11.1); NUCLEATED RBCS 0 /100WBC; PLATELET COUNT* 263 thou/uL (150-400); POLYS 86.8 %; RBC 4.57 mil/uL (4.20-5.00); RDW-CV 18.9 % (10.5-14.5); WBC 2.4 thou/uL (4.0-11.0)
[2020-11-03 09:18] LABS: CALCIUM 7.6 mg/dL (8.5-10.1); CREATININE 4.7 mg/dL (0.6-1.3); POTASSIUM 3.4 mmol/L (3.5-5.1); TOTAL BILIRUBIN 0.4 mg/dL (<0.1-1.0); TOTAL PROTEIN 6.3 g/dL (6.4-8.2)
[2020-11-03 12:00] VITALS: BP 108/49
[2020-11-03 16:00] VITALS: BP 123/61
[2020-11-03 20:00] VITALS: BP 98/52
[2020-11-04 01:03] VITALS: BP 122/52
[2020-11-04 04:00] VITALS: BP 124/43
[2020-11-04 04:30] LABS: ABSOLUTE EOSINOPHILS 0.2 thou/uL (0.0-0.7); ABSOLUTE LYMPHOCYTES 1.1 thou/uL (0.8-5.3); BASOPHILS 0.1 %; EOSINOPHILS 1.2 %; HEMATOCRIT 34.2 % (37.0-47.0); HEMOGLOBIN 10.8 gm/dL (12.0-15.0); LYMPHOCYTES 6.6 %; MCH 26.5 pg (26.0-34.0); MCHC 31.7 g/dL (28.0-37.0); MCV 83.5 fL (80.0-100.0); MONOCYTES 5.3 %; MPV 8.6 fl. (7.2-11.1); NUCLEATED RBCS 0 /100WBC; PLATELET COUNT* 222 thou/uL (150-400); POLYS 86.8 %; RBC 4.09 mil/uL (4.20-5.00); RDW-CV 18.8 % (10.5-14.5)
[2020-11-04 04:48] LABS: CALCIUM 7.2 mg/dL (8.5-10.1); POTASSIUM 3.1 mmol/L (3.5-5.1)
[2020-11-04 04:50] LABS: ABSOLUTE MONOCYTES 0.9 thou/uL (0.0-1.2); WBC 16.1 thou/uL (4.0-11.0)
[2020-11-04 13:07] VITALS: BP 115/57
[2020-11-04 15:57] VITALS: BP 132/61
[2020-11-04 20:00] VITALS: BP 145/67
[2020-11-05] VITALS (20 sets, daily range): BP systolic 121–153; BP diastolic 59–81
[2020-11-05 05:14] LABS: ABSOLUTE EOSINOPHILS 0.1 thou/uL (0.0-0.7); ABSOLUTE LYMPHOCYTES 1.4 thou/uL (0.8-5.3); ABSOLUTE MONOCYTES 0.8 thou/uL (0.0-1.2); ABSOLUTE NEUTROPHILS 11.8 thou/uL (1.6-8.1); BASOPHILS 0.1 %; EOSINOPHILS 0.6 %; HEMATOCRIT 33.7 % (37.0-47.0); HEMOGLOBIN 10.6 gm/dL (12.0-15.0); LYMPHOCYTES 9.9 %; MCH 26.4 pg (26.0-34.0); MCHC 31.5 g/dL (28.0-37.0); MCV 84.1 fL (80.0-100.0); MONOCYTES 5.5 %; MPV 8.6 fl. (7.2-11.1); NUCLEATED RBCS 0 /100WBC; PLATELET COUNT* 221 thou/uL (150-400); POLYS 83.9 %; RBC 4.01 mil/uL (4.20-5.00); RDW-CV 19.5 % (10.5-14.5)
[2020-11-05 05:25] LABS: ALBUMIN 1.7 g/dL (3.4-5.0); CALCIUM 6.7 mg/dL (8.5-10.1); TOTAL BILIRUBIN 0.3 mg/dL (<0.1-1.0); TOTAL PROTEIN 5.5 g/dL (6.4-8.2)
[2020-11-05 05:30] LABS: POTASSIUM 2.9 mmol/L (3.5-5.1)
[2020-11-05] MEDS ORDERED: VANCOMYCIN HCL125 MG PO (11:30)
--- NOTE | 2020-11-05 15:43 | EKG ---
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1945 Requested By: Se Hough Order Number: [id number] Reading MD: Jerardo Choudhary Measurements Intervals [place] Rate: 89 P: 51 SC: 149 QRS: 11 QRSD: 104 T: QT: 463 QTc: 564 Interpretive Statements Sinus rhythm Probable left atrial enlargement Anterolateral infarct, acute (LAD) Prolonged QT interval Compared to ECG 04/16/2020 19:31:41 Myocardial infarct finding now present Electronically Signed On 11-05-2020 15:42:59 CDT by Jerardo Choudhary [email or web address] <ELECTRONICALLY SIGNED> By: Jerardo Choudhary MD, [facility] 11/05/20 1542 1425 1425 Jerardo Choudhary MD, [facility] /EPI
--- NOTE | 2020-11-05 17:28 | 2DMMODE ---
[place] [address] 2 D/M-MODE ECHOCARDIOGRAM Name: RADHA HOLDER Margarette Room: [address] IN [facility]#: [id number] Admission: 11/02/20 Attend Phys: Brian Romero Discharge: Date of : 49 Date of Service: 11/05/20 1728 Report #: [id number] THIS REPORT FOR: cc: Desmond Ruffin,Se Arceo MD [facility] ~ APPROVED REPORT Study performed: 11/05/2020 13:19:55 EXAM: Comprehensive 2D, Doppler, and color-flow Echocardiogram Patient Location: In-Patient Room #: [facility] Status: routine BSA: 1.86 HR: 88 bpm BP: 140/59 mmHg Rhythm: NSR Other Information Study Quality: Good Indications Arrhythmia 2D Dimensions IVSd: 9.12 (7-11mm) LVOT Diam: 20.85 (18-24mm) LVDd: 43.54 mm PWd: 8.83 (7-11mm) Ascending Ao: 31.87 (22-36mm) LVDs: 24.96 (25-40mm) Aortic Root: 35.58 mm Volumes Left Atrial Volume (Systole) LA ESV Index: 32.10 mL/m2 Aortic Valve AoV Peak Arthur.: 1.43 m/s AO Peak Gr.: 8.18 mmHg LVOT Max P.99 mmHg AO Mean Gr.: 4.56 mmHg LVOT Mean P.04 mmHg LVOT Max V: 1.00 m/s AO V2 VTI: 22.56 cm LVOT Mean V: 0.66 m/s BARAK (VTI): 2.86 cm2 LVOT V1 VTI: 18.89 cm AI Cottle: 3.83 m/s2 [place] [address] 2 D/M-MODE ECHOCARDIOGRAM Name: GALLORADHA L Room: [address] IN .R.#: [id number] Admission: 11/02/20 Attend Phys: Brian Romero Discharge: Date of : 49 Date of Service: 11/05/20 1728 Report #: [id number] AI PHT: 249.12 ms Mitral Valve MV Mean Gr.: 4.58 mmHg E/A Ratio: 0.60 MV Decel. Time: 138.82 ms MV E Max Arthur.: 0.97 m/s MV PHT: 40.26 ms MVA (PHT): 5.46 cm2 TDI E/Lateral E': 13.86 E/Medial E': 16.17 Medial E' Arthur.: 0.06 m/s Lateral E' Arthur.: 0.07 m/s Pulmonary Valve PV Peak Arthur.: 1.00 m/s PV Peak Gr.: 4.02 mmHg Tricuspid Valve RAP Estimate: 5.00 mmHg TR Peak Gr.: 30.93 mmHg RVSP: 35.00 mmHg PA Pressure: 35.00 mmHg Left Ventricle The left ventricle is normal size. There is akinesis of the apex and apical portions of the septum and anterior wall. Mild to moderate concentric left ventricular hypertrophy. Left ventricular systolic function is normal. LVEF is 50-55%. Grade I - abnormal relaxation pattern. Right Ventricle The right ventricle is normal size. The right ventricular systolic function is normal. Atria The left atrium size is normal. The right atrium size is normal. Aortic Valve Mild aortic valve sclerosis. Moderate aortic regurgitation. There is no aortic valvular stenosis. Mitral Valve There is mitral annular calcification. Mild mitral regurgitation. No evidence of mitral valve stenosis[place] [address] 2 D/M-MODE ECHOCARDIOGRAM Name: RADHA HOLDER Room: [address]#: [id number] Admission: 11/02/20 Attend Phys: Brian Romero Discharge: Date of : 49 Date of Service: 11/05/20 1728 Report #: [id number] The tricuspid valve is normal in structure. Trace tricuspid regurgitation. Mild tricuspid regurgitation. Pulmonic Valve The pulmonary valve is normal in structure. There is no pulmonic valvular regurgitation. Great Vessels The aortic root is normal in size. IVC is normal in size and collapses >50% with inspiration. Pericardium There is no pericardial effusion. Left pleural effusion. <Conclusion> The left ventricle is normal size. Mild to moderate concentric left ventricular hypertrophy. Left ventricular systolic function is normal. LVEF is 50-55%. Grade I - abnormal relaxation pattern. There is akinesis of the apex and apical portions of the septum and anterior wall. Mild aortic valve sclerosis. Moderate aortic regurgitation. There is mitral annular calcification. Mild mitral regurgitation. Trace tricuspid regurgitation. Mild tricuspid regurgitation. Left pleural effusion. <ELECTRONICALLY SIGNED> By: Se Hough MD, FACC 11/05/201727 27 27 Se Hough MD, FACC /INF
[2020-11-06 00:31] VITALS: BP 145/99
[2020-11-06 04:00] VITALS: BP 137/67
[2020-11-06 08:17] LABS: ABSOLUTE BASOPHILS 0.1 thou/uL (0.0-0.2); ABSOLUTE EOSINOPHILS 0.1 thou/uL (0.0-0.7); ABSOLUTE LYMPHOCYTES 1.4 thou/uL (0.8-5.3); ABSOLUTE MONOCYTES 0.7 thou/uL (0.0-1.2); BASOPHILS 0.6 %; EOSINOPHILS 0.5 %; HEMATOCRIT 36.1 % (37.0-47.0); HEMOGLOBIN 11.3 gm/dL (12.0-15.0); LYMPHOCYTES 10.6 %; MCH 26.4 pg (26.0-34.0); MCHC 31.3 g/dL (28.0-37.0); MCV 84.3 fL (80.0-100.0); MONOCYTES 5.4 %; NUCLEATED RBCS 0 /100WBC; PLATELET COUNT* 228 thou/uL (150-400); POLYS 82.9 %; RBC 4.28 mil/uL (4.20-5.00); RDW-CV 19.6 % (10.5-14.5); WBC 13.2 thou/uL (4.0-11.0)
[2020-11-06 08:21] LABS: CALCIUM 6.7 mg/dL (8.5-10.1); CREATININE 5.2 mg/dL (0.6-1.3); POTASSIUM 3.7 mmol/L (3.5-5.1)
[2020-11-06 08:29] LABS: TROPONIN-I LEVEL 2.36 ng/mL (<0.06)
[2020-11-06 12:00] VITALS: BP 114/58
[2020-11-06 16:00] VITALS: BP 131/68
--- NOTE | 2020-11-06 17:31 | CON ---
[address] [address] CONSULTATION Name: RADHA HOLDER Room: [address] IN .R.#: [id number] Admission: 11/02/20 Attend Phys: Brian Stoner, Discharge: Date of : 49 Report #: [id number] THIS REPORT FOR: cc: Desmond Ruffin Dimitri DO ~ Liston, Michael J. MD [facility] INDICATION: SVT. HISTORY OF PRESENT ILLNESS: The patient is a 75-year-old white female admitted to the hospital on 11/02/2020, with diarrhea. She has a history of chronic renal failure status post failed renal transplant and is on peritoneal dialysis at home. The patient developed arrhythmias while in the hospital. Review of telemetry shows an episode of supraventricular tachycardia as well as 1 or 2 episodes of nonsustained ventricular tachycardia. This is presently in the setting of profound hypokalemia with a potassium of 2.9. The patient denies any chest pain or shortness of breath. She denies any prior history of cardiac issues. There was no history of coronary artery disease or previous history of arrhythmia. At the time of my interview, she is without cardiac complaint. PAST MEDICAL HISTORY: 1. End-stage renal disease, on peritoneal dialysis. 2. Status post failed kidney transplant in 1998. PAST SURGICAL HISTORY: 1. Hysterectomy. 2. Parathyroidectomy. 3. , remotely. 4. Left total hip replacement. 5. Pin in left leg for fracture. 5. Type 2 diabetes mellitus. 6. Hypertension. 7. Obesity. FAMILY HISTORY: Noncontributory. SOCIAL HISTORY: The patient is a lifelong nonsmoker. She does not drink alcohol. REVIEW OF SYSTEMS: Positive for fatigue, dyspnea on exertion without orthopnea. Otherwise, 14-point review of systems unremarkable. PHYSICAL EXAMINATION: VITAL SIGNS: Blood pressure 151/65, pulse 85 and regular. GENERAL: This is a pleasant elderly female who is in no distress. [place] [address] CONSULTATION Name: PEPE HOLDERKYA Pfeiffer Room: [address]#: [id number] Admission: 11/02/20 Attend Phys: Brian Stoner, Discharge: Date of : 47 Report #: [id number] HEENT: Extraocular muscles appear to be intact. She appears to have a lazy left eye. Mild exophthalmia. Mucous membranes are moist. Examination of the neck shows no jugular venous distention. NECK: No carotid bruits. CHEST: Reveals clear lung vargas. CARDIAC: Reveals a distant S1 and S2. I do not appreciate a gallop or murmur. ABDOMEN: Reveals normal bowel sounds. The abdomen is soft. There is no tenderness. EXTREMITIES: Show no significant edema. SKIN: Dry. Telemetry monitoring presently shows sinus rhythm. Review of the events shows a single episode of sustained supraventricular tachycardia at approximately 1:40 this morning. She also had a few episodes of nonsustained ventricular tachycardia. EKG ordered and pending. IMPRESSION AND RECOMMENDATION: 1. Supraventricular tachycardia in the setting of profound hypokalemia. The patient is without other complaint. I have ordered an echocardiogram to evaluate underlying cardiac structure and function. I have ordered an additional 40 mEq of potassium. I believe if we correct her potassium, the arrhythmias will resolve. I am also checking a troponin, although I do not suspect to see significant elevation. EKG is ordered and pending. 2. Nonsustained ventricular tachycardia. This is likely also in the setting of hypokalemia. Echocardiogram orders as outlined above. 3. Hypertension. Blood pressure reasonably well controlled on home regimen. 4. End-stage renal disease, on peritoneal dialysis. 5. Diarrhea, resolved. <ELECTRONICALLY SIGNED> By: Se Hough MD, FACC 11/06/20 1731 1255 1735Se Hough MD, FACC /nt
--- NOTE | 2020-11-06 17:52 | CARD ---
[address] [address] CARDIAC CATH REPORT Name: RADHA OHLDER Room: [address] IN [facility]#: [id number] Admission: 11/02/20 Attend Phys: Brian Stoner, Discharge: Date of : 47 Report #: [id number] THIS REPORT FOR: cc: Desmond Ruffin Dimitri DO ~ Se Hough MD [facility] APPROVED REPORT Study performed: 11/05/2020 15:29:18 Patient Details Patient Status: In-Patient Room #: The patient is a 75 year-old female Event Personnel Se Hough Large Animal Veterinarian, Angelina Skaggs RN [employer] Service Mechanic, Sincere Moser TRAILER BODY ASSEMBLER Monitor, Lexie Brown RTR Scrub Procedures Performed Art Access - R femoral artery Left Heart Cath w/or w/o Coronaries Hemostasis- Manual Pressure Admission/Lab Medications/Medications given during procedure Morphine IV 2 mg, Lidocaine Subcut 15 ml, Nitroglycerin SL 0.4 mg Procedure Narrative The patient was brought emergently to the Cardiac Catheterization Laboratory and was prepped and draped in a sterile manner. The right femoral was infiltrated with 2% Lidocaine subcutaneous anesthesia. A Deland 6 FR sheath was inserted into the right femoral artery. Coronary angiography was performed using coronary diagnostic catheters. The right coronary system was accessed and visualized with a Diagnostic 6 Fr AR Mod catheter. The left coronary system was accessed and visualized with a Diagnostic 6 Fr JL 5 catheter. The left ventricle was accessed and visualized with a Diagnostic 6 Fr Pigtail catheter. Left ventricular/Aortic Valve gradient assessed via catheter pullback. Left ventriculogram was performed in MARTINEZ projection. Hemostasis was obtained with manual pressure following sheath removal without any complications. The patient tolerated the procedure well and there were no complications associated with the procedure. There was no hematoma[place] Intra[place] [address] CARDIAC CATH REPORT Name: RADHA HOLDER Room: [address] IN [facility]#: [id number] Admission: 11/02/20 Attend Phys: Brian Stoner, Discharge: Date of : 47 Report #: [id number] No sedation was given. Case start was 1542 and case end was 1645. Fluoro Time: 17.9 minutes Dose: DAP 578211 cGycm2 1717 mGy Contrast Type and Amount: Visipaque 200 ml Diagnostic Cath Left Main The left main coronary artery is minimally plaqued and calcified. The left main is long and then bifurcates into a left inner descending and circumflex coronary arteries. LAD The proximal left into descending coronary artery is calcified without hemodynamically significant stenoses. The mid vessel appears moderately plaqued with up to 20% narrowing. The distal vessel appears free of significant disease. Diagonal 1 A first diagonal branch is small and free of significant stenoses. Diagonal 2 A second diagonal branch is moderate in caliber and mildly plaque proximally. Diagonal 3 A small third diagonal branch appears free of significant disease. Circumflex The circumflex coronary artery is moderately calcified and plaque in its proximal midportion. No hemodynamically significant stenoses were noted. The distal circumflex exhibits approximately 20% plaquing. OM1 A first obtuse marginal branch appears to be free of significant disease. OM2 A small second obtuse marginal branch appears mildly plaqued but without hemodynamically significant stenosis. OM3 A small third obtuse marginal branch appears free of significant disease. Right Coronary The right coronary artery is diffusely moderately plaque with approximately 50% narrowing in the midportion. R PDA A right PDA is mildly diffusely plaque without hemodynamically significant stenoses. RPLV A very small bifurcating posterior lateral branch is free of significant disease. Left Ventriculography The left ventricle is normal in size with Diminished contractility. The left ventricular ejection fraction is estimated to be 40-45%. Left ventricular wall motion abnormalities are present. The distal apical ramos and apex appear severely hypokinetic. The base of the heart [place] [address] CARDIAC CATH REPORT Name: RADHA HOLDER Room: [address] IN .R.#: [id number] Admission: 11/02/20 Attend Phys: Brian Stoner, Discharge: Date of : 47 Report #: [id number] Hemodynamics The aortic pressure is 112/54 mmHg with a mean of 51 mmHg. The left ventricular pressure is 114/2 mmHg with a mean of mmHg. The left ventricular end diastolic pressure is 7 mmHg. Conclusion 1. Moderate nonocclusive coronary artery disease. 2. Normal left ventricular end-diastolic function. 3. Mild left ventricular systolic dysfunction with apical hypokinesis possibly suggesting stress-induced cardiomyopathy. Recommendations 1. Continue medical management and aggressive risk factor modification. <ELECTRONICALLY SIGNED> By: Se Hough MD, FACC 11/06/201751 51 51Michaesom Hough MD, FACC /INF
[2020-11-06 20:00] VITALS: BP 138/61
[2020-11-07 00:22] VITALS: BP 137/76
[2020-11-07 04:25] LABS: HEMATOCRIT 35.3 % (37.0-47.0); HEMOGLOBIN 11.2 gm/dL (12.0-15.0); MCH 26.8 pg (26.0-34.0); MCHC 31.6 g/dL (28.0-37.0); MCV 84.6 fL (80.0-100.0); MPV 8.5 fl. (7.2-11.1); RBC 4.17 mil/uL (4.20-5.00); RDW-CV 19.4 % (10.5-14.5); WBC 13.7 thou/uL (4.0-11.0)
[2020-11-07 04:37] VITALS: BP 152/76
[2020-11-07 04:59] LABS: ALBUMIN 1.6 g/dL (3.4-5.0); CALCIUM 6.8 mg/dL (8.5-10.1); CREATININE 4.8 mg/dL (0.6-1.3); MAGNESIUM 1.4 mg/dL (1.8-2.4); POTASSIUM 3.7 mmol/L (3.5-5.1); TOTAL BILIRUBIN 0.4 mg/dL (<0.1-1.0); TOTAL PROTEIN 5.6 g/dL (6.4-8.2)
[2020-11-07 05:25] LABS: TROPONIN-I LEVEL 1.3 ng/mL (<0.06)
[2020-11-07 08:30] VITALS: BP 142/82
[2020-11-07 12:18] VITALS: BP 142/82
[2020-11-07 16:24] VITALS: BP 138/67
== END 2020-11-07 17:00 | disposition home health service (06) | DRG 371 ==
LOC: M.ERS 15:58 → M.TBA-ER 19:52 → M.2W 19:52
PROVIDERS: Internal Medicine; Internal Medicine Nephrology; Nurse Practitioner Family; ADMIT Family Medicine; ATTEND Family Medicine
PROC: 4A023N7 Measurement of Cardiac Sampling and Pressure, Left Heart, Percutaneous Approach (ICD-10-PCS; principal; 2020-11-06)
PROC: B215YZZ Fluoroscopy of Left Heart using Other Contrast (ICD-10-PCS; principal; 2020-11-06)
PROC: B211YZZ Fluoroscopy of Multiple Coronary Arteries using Other Contrast (ICD-10-PCS; principal; 2020-11-06)
DX: A04.72 Enterocolitis due to Clostridium difficile, not specified as recurrent (principal); N18.6 End stage renal disease; I21.4 Non-ST elevation (NSTEMI) myocardial infarction; R65.10 Systemic inflammatory response syndrome (SIRS) of non-infectious origin without acute organ dysfunction; I12.0 Hypertensive chronic kidney disease with stage 5 chronic kidney disease or end stage renal disease; Z94.0 Kidney transplant status; I47.1 Supraventricular tachycardia; I42.8 Other cardiomyopathies; K81.0 Acute cholecystitis; E87.6 Hypokalemia; E78.5 Hyperlipidemia, unspecified; I25.10 Atherosclerotic heart disease of native coronary artery without angina pectoris; E11.22 Type 2 diabetes mellitus with diabetic chronic kidney disease; Z20.822 Contact with and (suspected) exposure to COVID-19; Z96.642 Presence of left artificial hip joint; Z99.2 Dependence on renal dialysis; Z90.710 Acquired absence of both cervix and uterus; Z98.891 History of uterine scar from previous surgery; Z88.1 Allergy status to other antibiotic agents; Z88.0 Allergy status to penicillin; Z88.8 Allergy status to other drugs, medicaments and biological substances; Z91.09 Other allergy status, other than to drugs and biological substances; Z79.899 Other long term (current) drug therapy; Z79.4 Long term (current) use of insulin

== ENCOUNTER 2020-11-09 16:52 | Inpatient (IN) | payer MEDICARE, MEDICAID ==
[~2020-11-09] VITALS: Ht 167.6 cm; Wt 74.8 kg
[~2020-11-09 16:52] MED LIST changes: +TRESIBA FL200 UNIT/1 SUBQ; +TYLENOL325 M1 PO; +VANCOMYCIN HCL125 MG PO
[2020-11-09 17:06] VITALS: BP 151/80
[2020-11-09 17:45] LABS: HEMATOCRIT 36.9 % (37.0-47.0); HEMOGLOBIN 11.5 gm/dL (12.0-15.0); MCH 26.5 pg (26.0-34.0); MCHC 31.2 g/dL (28.0-37.0); MCV 84.8 fL (80.0-100.0); MPV 7.9 fl. (7.2-11.1); NUCLEATED RBCS 0 /100WBC; PLATELET COUNT* 312 thou/uL (150-400); RBC 4.35 mil/uL (4.20-5.00); RDW-CV 20.3 % (10.5-14.5); WBC 13.9 thou/uL (4.0-11.0)
[2020-11-09 17:55] LABS: CALCIUM 6.7 mg/dL (8.5-10.1); CREATININE 5.4 mg/dL (0.6-1.3); POTASSIUM 3.7 mmol/L (3.5-5.1)
[2020-11-09 17:59] LABS: ALBUMIN 1.8 g/dL (3.4-5.0); TOTAL BILIRUBIN 0.6 mg/dL (<0.1-1.0); TOTAL PROTEIN 5.8 g/dL (6.4-8.2)
[2020-11-09 18:07] LABS: ABSOLUTE LYMPHOCYTES 0.7 thou/uL (0.8-5.3); ABSOLUTE MONOCYTES 0.4 thou/uL (0.0-1.2); ABSOLUTE NEUTROPHILS 12.8 thou/uL (1.6-8.1)
[2020-11-09 18:08] LABS: ANISOCYTOSIS 1+; HYPOCHROMASIA 1+; PLATELET ESTIMATE ADEQUATE; POIKILOCYTOSIS 1+
--- NOTE | 2020-11-09 20:45 | NUR ---
SPOKE WITH DR. ANGUIANO ABOUT CRITICAL TROPONIN RESULT. NO NEW ORDERS AT THIS TIME.
[2020-11-09 22:29] VITALS: BP 140/65
[2020-11-09 23:37] LABS: CALCIUM 6.5 mg/dL (8.5-10.1); CREATININE 5.3 mg/dL (0.6-1.3); POTASSIUM 3.3 mmol/L (3.5-5.1)
[2020-11-10 02:04] VITALS: BP 147/69
[2020-11-10 04:26] LABS: CALCIUM 6.7 mg/dL (8.5-10.1); CREATININE 5.3 mg/dL (0.6-1.3); POTASSIUM 3.6 mmol/L (3.5-5.1)
[2020-11-10 04:50] LABS: ABSOLUTE EOSINOPHILS 0.1 thou/uL (0.0-0.7); ABSOLUTE LYMPHOCYTES 1.3 thou/uL (0.8-5.3); ABSOLUTE MONOCYTES 0.5 thou/uL (0.0-1.2); ABSOLUTE NEUTROPHILS 9.3 thou/uL (1.6-8.1); BASOPHILS 0.1 %; EOSINOPHILS 1.1 %; HEMATOCRIT 32.4 % (37.0-47.0); HEMOGLOBIN 10.3 gm/dL (12.0-15.0); LYMPHOCYTES 11.5 %; MCH 26.9 pg (26.0-34.0); MCHC 31.8 g/dL (28.0-37.0); MCV 84.5 fL (80.0-100.0); MONOCYTES 4.5 %; MPV 7.9 fl. (7.2-11.1); NUCLEATED RBCS 0 /100WBC; PLATELET COUNT* 295 thou/uL (150-400); POLYS 82.8 %; RBC 3.83 mil/uL (4.20-5.00); WBC 11.2 thou/uL (4.0-11.0)
[2020-11-10 07:30] VITALS: BP 163/66
[2020-11-10 12:00] VITALS: BP 109/44
--- NOTE | 2020-11-10 12:05 | NUR ---
CM COMPLETED THE INITIAL ASSESSMENT WITH PT. PT LIVES HOME ALONE, PT DTR'S "COME HELP OUT." PT USE AN ELECTRIC W/C, DOES NOT AMBULATE. PT DOES [facility], NIGHTLY FOR 9 HR. PT STATED SHE IS INDEPENDENT W/ADLS, ASSIST W/CHORES, ETC. CM TO CONT TO FOLLOW.
--- NOTE | 2020-11-10 13:00 | EKG ---
[place] [address] ELECTROCARDIOGRAM REPORT Name: CEDRICRADHA COOK Room: [address] ADM IN M.R.#: [id number] Admission: 11/09/20 Attend Phys: Ace Banerjee Discharge: Date of : 49 Date of Service: 11/09/20 1739 Report #: [id number] THIS REPORT FOR: //name// [facility] ED Test Date: 2020-11-09 Test Time: 17:39:57 Pat Name: RADHA HOLDER Department: Room: [facility] Gender: F Financial Aids Officer: DAVID : 1945 Requested By: Bill Dalton Order Number: [id number] MD: Murali Gaspar Measurements Intervals [place] Rate: 82 P: 35 MT: 173 QRS: 3 QRSD: 119 T: 164 QT: 479 QTc: 560 Interpretive Statements Sinus rhythm Left atrial enlargement Nonspecific intraventricular conduction delay Abnrm T, consider ischemia or injury, anterolateral lds Compared to ECG 11/05/2020 14:25:31 Intraventricular conduction delay now present Possible ischemia now present Prominent anterior wall injury pattern has diminished with evolution of the ischemic process Electronically Signed On 11-10-2020 13:00:06 CDT by Murali Gaspar [email or web address] <ELECTRONICALLY SIGNED> By: Murali Gaspar MD, [facility] 11/10/20 1300 1739 1739 Murali Gaspar MD, [facility] /EPI
--- NOTE | 2020-11-10 13:57 | CON ---
[address] [address] CONSULTATION Name: RADHA HOLDER Room: [address] IN .R.#: [id number] Admission: 11/09/20 Attend Phys: Medardo Deras Discharge: Date of : 47 Report #: [id number] THIS REPORT FOR: cc: Desmond Ruffin Dimitri DO ~ Liston, Michael J. MD [facility] DATE OF SERVICE: 11/10/2020 CARDIOLOGY CONSULT INDICATION: Elevated troponin. HISTORY OF PRESENT ILLNESS: The patient is a very pleasant 75-year-old white female seen by myself last week with initially some arrhythmias, felt to be due to hypokalemia. She was noted to have some supraventricular tachycardia as well as some short runs of nonsustained ventricular tachycardia. She does have end-stage renal disease and is on peritoneal dialysis. At that time, her potassium was 2.9. Subsequent to that, an EKG showed significant ST elevation in the anterior leads, for which she was taken to the cardiac catheterization lab despite convincing symptoms of acute coronary syndrome. She was found to have diffuse nonocclusive coronary artery disease. She had an apical wall motion abnormality suggestive of stress-induced cardiomyopathy. Her peak troponin at that time was approximately 4.5. She was discharged uneventfully, but returned to the hospital with recurrence of nausea and diarrhea, which was her initial complaint during her last hospitalization. Troponins at this time are approximately 0.5 and 0.6. EKG shows sinus rhythm with diffuse T-wave inversion. She is not having any symptoms to suggest acute coronary syndrome at this time. PAST MEDICAL HISTORY: 1. Coronary artery disease, nonocclusive by catheterization last week. 2. Recent episode of stress-induced cardiomyopathy. 3. Hypertension. 4. End-stage renal disease, on peritoneal dialysis. 5. Hyperlipidemia. 6. Status post failed kidney transplant in 1998. 7. Type 2 diabetes mellitus. PAST SURGICAL HISTORY: 1. Hysterectomy. 2. Parathyroidectomy. 3. . 4. Left total hip replacement. 5. Left [place] [address] CONSULTATION Name: RADAH HOLDER Room: [address]#: [id number] Admission: 11/09/20 Attend Phys: Medardo Deras Discharge: Date of : 47 Report #: [id number] FAMILY HISTORY: Noncontributory. SOCIAL HISTORY: The patient is a lifelong nonsmoker. She does not smoke. REVIEW OF SYSTEMS: Positive for nausea, diarrhea, mild fatigue, some dyspnea on exertion. Otherwise, a 14-point review of systems unremarkable. PHYSICAL EXAMINATION: VITAL SIGNS: Blood pressure 147/69, pulse 80 and regular. GENERAL: This is a pleasant elderly female, who is in no distress. Mood and affect appropriate. HEENT: Extraocular muscles intact. Mucous membranes are moist. NECK: Shows no jugular venous distention. CARDIAC: Reveals a regular rhythm. I do not appreciate gallop or murmur. CHEST: Reveals clear lung vargas. ABDOMEN: Shows the abdomen to soft and nontender. Bowel sounds present in all 4 quadrants. EXTREMITIES: Shows no edema. SKIN: Dry. LABORATORY DATA: Reviewed. Troponins 0.58, 0.67, and 0.66. IMPRESSION AND RECOMMENDATIONS: 1. Minimally elevated troponin in the setting of recent episode of stress-induced cardiomyopathy. The patient is not having any symptoms to suggest acute coronary syndrome. Catheterization last week showed diffuse nonocclusive coronary artery disease. Continue risk factor modification and conservative management. 2. Recent stress-induced myopathy. The patient is hemodynamically stable at this time. No specific treatment at this time. 3. Dyslipidemia. Continue atorvastatin with goal LDL of 70 or less. 4. Hypertension, adequately controlled on current cardiac regimen. 5. Type 2 diabetes mellitus per hospitalist. 6. End-stage renal disease, on peritoneal dialysis. At this point, the patient appears stable from cardiac standpoint. Available as needed. <ELECTRONICALLY SIGNED> By: Se Hough MD, FACC 11/10/20 1357 0937 [id number] Hough MD, FACC /nt
[2020-11-10 16:08] VITALS: BP 141/83
[2020-11-10 20:00] VITALS: BP 144/61
[2020-11-11 00:10] VITALS: BP 130/60
[2020-11-11 04:39] VITALS: BP 144/71
[2020-11-11 08:00] VITALS: BP 138/61
--- NOTE | 2020-11-11 10:32 | NUR ---
RECEIVED REPORT AROUND 0715. ASSUMED CARE. VS AND ASSESSMENT CHARTED. IV INTACT. SAULO INFUSION NURSE STARTING NEW LINE. HEART MONITOR ATTACHED. PT LYING IN BED. REPORTED PAIN. PAIN PILLS HAD BEEN GIVEN EARLIER THIS MORNING. ISOLATION PRECAUTIONS INTACT. MEDS GIVEN PER OCT. CALL LIGHT WITHIN REACH. WILL CONTINUE TO MONITOR.
[2020-11-11 12:00] VITALS: BP 139/54
--- NOTE | 2020-11-11 14:04 | NUR ---
Surgery consulted. Cdiff. Anticipate dc in a few days. Plan home with HH at dc. Pt is a readmit.
[2020-11-11 16:37] VITALS: BP 150/71
--- NOTE | 2020-11-11 16:47 | NUR ---
NO NEW CHANGES. IV INTACT LEFT UPPER ARM MIDLINE. HEART MONITOR ATTACHED AT SR. PT LYING IN BED. MEDS GIVEN PER MAR. HOURLY ROUNDING PERFORMED. ISOLATION PRECAUTIONS INTACT. Q2 TURNS. CALL LIGHT WITHIN REACH. WILL CONITNUE TO MONITOR.
[2020-11-11 20:45] VITALS: BP 153/68
[2020-11-12] VITALS (7 sets, daily range): BP systolic 141–179; BP diastolic 69–87
[2020-11-12 04:34] LABS: CALCIUM 6.3 mg/dL (8.5-10.1); POTASSIUM 3.3 mmol/L (3.5-5.1)
[2020-11-12 04:38] LABS: CREATININE 4.1 mg/dL (0.6-1.3)
--- NOTE | 2020-11-12 05:38 | NUR ---
PT SLEPT ON AND OFF THIS SHIFT. ASSESSMENT DOCUMENTED. MEDS GIVEN PER E-OCT. IV PATENT. PAIN MEDS GIVEN PER E-MAR WITH SOME RELIEF. FALL PRECAUTIONS IN PLACE. PT'S PT RAN THIS SHIFT WITH NO NOTED ISSUES. PT REFUSED TO HAVE HEALS OFFLOADED. WILL CONTINUE WITH PLAN OF CARE.
--- NOTE | 2020-11-12 12:19 | NUR ---
Anticipate dc to home tomorrow with Kwabena LANE CM faxed initial referral, will fax orders at ok [phone]
--- NOTE | 2020-11-12 19:21 | NUR ---
PT IS ALERT AND ORIENTED SR ON THE MONITOR PD GOING NOW ACHS C/O PAIN AT TIMES NORCO WORKS OLIGURIA BM BUT FORMED MORE NOW VANC CONTINUES SHOULD DC TOMORROW CALL LIGHT IN REACH
[2020-11-12 22:57] LABS: URINE BILIRUBIN NEGATIVE (Negative); URINE BLOOD 2+ (Negative); URINE CLARITY CLEAR; URINE COLOR YELLOW; URINE GLUCOSE-RANDOM 2+ (Negative); URINE KETONES NEGATIVE (Negative); URINE LEUKOCYTES-REFLEX NEGATIVE (Negative); URINE NITRITE-REFLEX NEGATIVE (Negative); URINE PROTEIN 2+ (Negative); URINE UROBILINOGEN 0.2 E.U./dl (0.2-1.0)
[2020-11-12 23:04] LABS: SQUAMOUS >10 Many /LPF (0-3); TRANSITIONAL EPITHEL CELL 0-3 Few /LPF (None Seen)
[2020-11-12 23:05] LABS: BACTERIA-REFLEX >30 Many /HPF (None Seen); CRYSTALS None Seen /LPF (None Seen); FINE GRANULAR CASTS 0-3 Few /LPF (None Seen); MUCUS 4-6 Moderate strn/LPF (None Seen); URINE WBC-REFLEX 0-5 Rare /HPF (0-5)
[2020-11-12 23:06] LABS: HEPATITIS B SURFACE AG Negative (Negative)
[2020-11-13] VITALS: BP 168/89
[2020-11-13 04:44] LABS: CALCIUM 6.8 mg/dL (8.5-10.1); CREATININE 3.8 mg/dL (0.6-1.3); POTASSIUM 3.3 mmol/L (3.5-5.1)
[2020-11-13 04:51] VITALS: BP 140/70
[2020-11-13 05:41] LABS: CLARITY SL HAZY; SOURCE PERITONEAL
[2020-11-13 05:42] LABS: BF WBC 28 /mm3
[2020-11-13 06:04] LABS: BF EOSINOPHILS 3 %; BF LYMPHOCYTES 27 %; BF MONOCYTES 20 %; BF POLYS 46 %; BF RBC 194 /mm3; BODY FLUID BANDS 3 %
[2020-11-13 07:30] VITALS: BP 155/83
[2020-11-13] MEDS ORDERED: VANCOMYCIN HCL125 MG PO (09:22)
--- NOTE | 2020-11-13 10:08 | NUR ---
Pt discharging to home today with Kwabena GARCIA. Pt has not seen her current PCP, RADHA attempting to arrange a tele visit between Dr and Pt for early next week, once complete, HH will start. Pt aware. Updated nurse and Dr. Pt has 4 pills left of her previous script, Dr to write for a new script. Pt states that her granddtr works at the [employer] in [place] on the weekend and gets her meds filled. CM to arrange a [employer] van transport for 330pm, Pt's family will be available to receive her at that time.
[2020-11-13 15:21] VITALS: BP 174/86
== END 2020-11-13 16:03 | disposition home health service (06) | DRG 871 ==
LOC: M.ERS 16:52 → M.TBA-ER 18:22 → M.2W 18:22
PROVIDERS: Emergency Medicine Emergency Medical Services; Internal Medicine Nephrology; ADMIT Internal Medicine; ATTEND Internal Medicine
PROC: 3E1M39Z Irrigation of Peritoneal Cavity using Dialysate, Percutaneous Approach (ICD-10-PCS; principal; 2020-11-10)
PROC: 3E1M39Z Irrigation of Peritoneal Cavity using Dialysate, Percutaneous Approach (ICD-10-PCS; 2020-11-11)
DX: A41.9 Sepsis, unspecified organism (principal); I21.A1 Myocardial infarction type 2; N18.6 End stage renal disease; A04.72 Enterocolitis due to Clostridium difficile, not specified as recurrent; Z94.0 Kidney transplant status; N39.0 Urinary tract infection, site not specified; I12.0 Hypertensive chronic kidney disease with stage 5 chronic kidney disease or end stage renal disease; Q61.3 Polycystic kidney, unspecified; D84.9 Immunodeficiency, unspecified; I42.9 Cardiomyopathy, unspecified; E66.9 Obesity, unspecified; I25.10 Atherosclerotic heart disease of native coronary artery without angina pectoris; E11.22 Type 2 diabetes mellitus with diabetic chronic kidney disease; K82.9 Disease of gallbladder, unspecified; E78.5 Hyperlipidemia, unspecified; Z96.642 Presence of left artificial hip joint; Z99.2 Dependence on renal dialysis; Z68.26 Body mass index [BMI] 26.0-26.9, adult; Z88.0 Allergy status to penicillin; Z88.1 Allergy status to other antibiotic agents; Z88.8 Allergy status to other drugs, medicaments and biological substances; Z90.710 Acquired absence of both cervix and uterus; Z20.822 Contact with and (suspected) exposure to COVID-19

== ENCOUNTER 2021-02-04 18:14 | Inpatient (IN) | payer MEDICARE, MEDICAID ==
[~2021-02-04] VITALS: Ht 167.6 cm; Wt 70.8 kg
[2021-02-04 18:41] VITALS: BP 117/66
[2021-02-04] MEDS ORDERED: MACROBID 100 M100 MG PO (18:50)
[2021-02-04 21:48] LABS: ABSOLUTE EOSINOPHILS 0.1 thou/uL (0.0-0.7); ABSOLUTE LYMPHOCYTES 3.3 thou/uL (0.8-5.3); ABSOLUTE MONOCYTES 0.4 thou/uL (0.0-1.2); ABSOLUTE NEUTROPHILS 6.5 thou/uL (1.6-8.1); BASOPHILS 0.4 %; EOSINOPHILS 0.9 %; HEMATOCRIT 40.4 % (37.0-47.0); HEMOGLOBIN 13.6 gm/dL (12.0-15.0); MCHC 33.6 g/dL (28.0-37.0); MCV 89.3 fL (80.0-100.0); MONOCYTES 3.9 %; MPV 6.7 fl. (7.2-11.1); NUCLEATED RBCS 0 /100WBC; PLATELET COUNT* 363 thou/uL (150-400); POLYS 62.8 %; RBC 4.52 mil/uL (4.20-5.00); WBC 10.4 thou/uL (4.0-11.0)
[2021-02-04 21:54] LABS: ANION GAP 12 mmol/L (7-16); BUN 61 mg/dL (7-18); CALCIUM 8.7 mg/dL (8.5-10.1); CHLORIDE 95 mmol/L (98-107); CO2 27 mmol/L (21-32); CREATININE 7.1 mg/dL (0.6-1.3); GLUCOSE 130 mg/dL (70-99); POTASSIUM 3.2 mmol/L (3.5-5.1); SODIUM 134 mmol/L (136-145)
[2021-02-04 21:59] LABS: ALBUMIN 2.3 g/dL (3.4-5.0); ALKALINE PHOSPHATASE 99 U/L (46-116); SGOT 16 U/L (15-37); SGPT < 6 U/L (30-65); TOTAL BILIRUBIN 0.3 mg/dL (<0.1-1.0); TOTAL PROTEIN 7.3 g/dL (6.4-8.2)
[2021-02-04 22:37] LABS: URINE BLOOD 2+ (Negative); URINE COLOR YELLOW; URINE GLUCOSE-RANDOM NEGATIVE (Negative); URINE KETONES TRACE (Negative); URINE NITRITE-REFLEX NEGATIVE (Negative); URINE PROTEIN 2+ (Negative); URINE SPECIFIC GRAVITY 1.025 (1.005-1.030); URINE UROBILINOGEN 0.2 E.U./dl (0.2-1.0)
[2021-02-04 22:38] LABS: ICTOTEST (BILI CONFIRMATORY) Negative (Negative); URINE BILIRUBIN 1+ (Negative); URINE CLARITY CLOUDY; URINE LEUKOCYTES-REFLEX 2+ (Negative)
[2021-02-04 22:44] LABS: BACTERIA-REFLEX >30 Many /HPF (None Seen); CASTS None Seen /LPF (None Seen); CRYSTALS None Seen /LPF (None Seen); SQUAMOUS >10 Many /LPF (0-3); URINE RBC >20 Many /HPF (0-2); URINE WBC-REFLEX >25 Many /HPF (0-5)
[2021-02-05 00:45] VITALS: BP 118/52
[2021-02-05 04:00] VITALS: BP 124/64
[2021-02-05 07:30] VITALS: BP 153/56
[2021-02-05 12:00] VITALS: BP 129/42
[2021-02-05 16:00] VITALS: BP 139/53
[2021-02-05 19:45] VITALS: BP 119/44
[2021-02-06] VITALS: BP 127/54
[2021-02-06 06:20] LABS: ABSOLUTE BASOPHILS 0.1 thou/uL (0.0-0.2); ABSOLUTE EOSINOPHILS 0.1 thou/uL (0.0-0.7); ABSOLUTE LYMPHOCYTES 2.4 thou/uL (0.8-5.3); ABSOLUTE MONOCYTES 0.4 thou/uL (0.0-1.2); ABSOLUTE NEUTROPHILS 4.6 thou/uL (1.6-8.1); BASOPHILS 0.9 %; HEMATOCRIT 38.5 % (37.0-47.0); HEMOGLOBIN 12.8 gm/dL (12.0-15.0); LYMPHOCYTES 31.6 %; MCH 29.9 pg (26.0-34.0); MCHC 33.3 g/dL (28.0-37.0); MONOCYTES 5.2 %; MPV 7.1 fl. (7.2-11.1); NUCLEATED RBCS 0 /100WBC; PLATELET COUNT* 317 thou/uL (150-400); POLYS 60.3 %; RBC 4.28 mil/uL (4.20-5.00); RDW-CV 16.2 % (10.5-14.5); WBC 7.6 thou/uL (4.0-11.0)
[2021-02-06 06:31] LABS: ALBUMIN 2.1 g/dL (3.4-5.0); CALCIUM 7.5 mg/dL (8.5-10.1); CREATININE 6.3 mg/dL (0.6-1.3); MAGNESIUM 1.5 mg/dL (1.8-2.4); PHOSPHORUS* 4.9 mg/dL (2.5-4.9)
[2021-02-06 08:00] VITALS: BP 109/67
[2021-02-06 12:00] VITALS: BP 140/50
[2021-02-06 16:00] VITALS: BP 116/55
[2021-02-06 20:00] VITALS: BP 136/61
[2021-02-07] VITALS: BP 112/54
[2021-02-07 05:59] LABS: ABSOLUTE EOSINOPHILS 0.1 thou/uL (0.0-0.7); ABSOLUTE LYMPHOCYTES 2.2 thou/uL (0.8-5.3); ABSOLUTE MONOCYTES 0.3 thou/uL (0.0-1.2); ABSOLUTE NEUTROPHILS 2.8 thou/uL (1.6-8.1); BASOPHILS 0.7 %; EOSINOPHILS 2.1 %; HEMATOCRIT 41.9 % (37.0-47.0); HEMOGLOBIN 13.9 gm/dL (12.0-15.0); MCH 29.8 pg (26.0-34.0); MCHC 33.1 g/dL (28.0-37.0); MCV 89.9 fL (80.0-100.0); MONOCYTES 5.1 %; MPV 6.6 fl. (7.2-11.1); NUCLEATED RBCS 0 /100WBC; PLATELET COUNT* 287 thou/uL (150-400); POLYS 51.1 %; RBC 4.66 mil/uL (4.20-5.00); RDW-CV 16.4 % (10.5-14.5); WBC 5.5 thou/uL (4.0-11.0)
[2021-02-07 06:06] LABS: CALCIUM 7.1 mg/dL (8.5-10.1); CREATININE 5.8 mg/dL (0.6-1.3); POTASSIUM 3.4 mmol/L (3.5-5.1)
[2021-02-07 08:25] VITALS: BP 132/79
--- NOTE | 2021-02-07 13:25 | CON ---
[address] [address] CONSULTATION Name: RADHA HOLDER Room: [address] IN M.R.#: [id number] Admission: 02/04/21 Attend Phys: Sri Stewart MD Discharge: Date of : 47 Report #: [id number] THIS REPORT FOR: cc: Desmond Ruffin Dimitri DO Khan, Abid R. MD ~ DOC #: [id number] Bekah Bond MD DATE OF CONSULTATION: 02/05/2021 NEPHROLOGY CONSULT CONSULTING PHYSICIAN: Dr. Stewart. HISTORY OF PRESENT ILLNESS: A 75-year-old female with a history of end-stage kidney disease on peritoneal dialysis, who I am being asked to see to manage her peritoneal dialysis, who is admitted with ongoing diarrhea. She has been diagnosed with C. diff previously and was treated with Macrobid for urinary tract infection. She did take some Imodium at home and has not had any diarrhea since being admitted to the hospital. Her PD has been going well at home. She has no complaints. REVIEW OF SYSTEMS: Constitutional, psych, heme, eyes, ENT, respiratory, cardiac, GI, , endocrine, all negative except as documented above. PAST MEDICAL HISTORY: Diabetes type 2, history of a kidney transplant in 1998 with rejection, history of parathyroidectomy and hypertension. FAMILY HISTORY: Nonpertinent in 75-year-old female. SOCIAL HISTORY: No tobacco. CURRENT MEDICATIONS: Reviewed. PHYSICAL EXAMINATION: VITAL SIGNS: Blood pressure 129/42, pulse 68, respirations 16, temperature 35.4. GENERAL: No acute distress. EYES: Open. EARS: Externally normal. NECK: Supple. CARDIOVASCULAR: Regular rate. LUNGS: No crackles. ABDOMEN: Soft, nontender. PD catheter intact. MUSCULOSKELETAL: [place] [address] CONSULTATION Name: RADHA HOLDER Room: [address]#: [id number] Admission: 02/04/21 Attend Phys: Sri Stewart MD Discharge: Date of : 49 Report #: [id number] PSYCHIATRIC: Awake, alert. DERMATOLOGY: She has a dry eschar on her right lower extremity is somewhat chronic following a traumatic injury. No hyperesthesia. No violaceous patch. No tenderness. LABORATORY DATA: White cell count 10.4, hemoglobin 13.6 and platelets 363. Sodium 134, potassium 3.2, chloride 95, bicarbonate 27, BUN 61, creatinine 7.1, glucose 130 and calcium 8.7. ASSESSMENT: 1. End-stage kidney disease, on peritoneal dialysis, followed by Dr. Bond. 2. Hypoalbuminemia, albumin of 2.3. 3. Diarrhea with a history of C. difficile. 4. Insulin-dependent diabetes type 2. 5. Lower extremity eschar related to a traumatic injury, appears to be healing. No pain. No hyperesthesia. No violaceous patch. Does not appear to be consistent with calciphylaxis. 6. Hypothyroidism. 7. Secondary hyperparathyroidism, on calcitriol. 8. Vitamin D deficiency, on vitamin D3. PLAN: 1. She has mild hypokalemia in the setting of diarrhea. We will replace. 2. Set up PD for tonight. 3. Add renal Multivitamin. 4. We will follow for dialysis needs. No need for dietary protein restriction from renal standpoint. Thank you for requesting my opinion in the care and management of this patient. MD STELLA Salcedo/FLORA <ELECTRONICALLY SIGNED> By: Bekah Bond MD 02/07/21 1325 1523 18Bekah Bond MD /nt
[2021-02-07 16:00] VITALS: BP 144/73
[2021-02-07 23:45] VITALS: BP 138/84
[2021-02-08 04:00] VITALS: BP 108/65
[2021-02-08 04:58] LABS: ABSOLUTE EOSINOPHILS 0.1 thou/uL (0.0-0.7); ABSOLUTE LYMPHOCYTES 2.6 thou/uL (0.8-5.3); ABSOLUTE MONOCYTES 0.3 thou/uL (0.0-1.2); ABSOLUTE NEUTROPHILS 3.6 thou/uL (1.6-8.1); BASOPHILS 0.6 %; EOSINOPHILS 1.8 %; HEMATOCRIT 39.7 % (37.0-47.0); HEMOGLOBIN 13.2 gm/dL (12.0-15.0); LYMPHOCYTES 39.6 %; MCH 29.7 pg (26.0-34.0); MCHC 33.1 g/dL (28.0-37.0); MCV 89.6 fL (80.0-100.0); MONOCYTES 4.5 %; MPV 7.2 fl. (7.2-11.1); NUCLEATED RBCS 0 /100WBC; PLATELET COUNT* 290 thou/uL (150-400); POLYS 53.5 %; RBC 4.44 mil/uL (4.20-5.00); RDW-CV 16.5 % (10.5-14.5); WBC 6.6 thou/uL (4.0-11.0)
[2021-02-08 05:12] LABS: CALCIUM 7.4 mg/dL (8.5-10.1); CREATININE 5.9 mg/dL (0.6-1.3)
[2021-02-08 05:17] LABS: POTASSIUM 2.9 mmol/L (3.5-5.1)
[2021-02-08 07:55] VITALS: BP 144/81
[2021-02-08] MEDS ORDERED: VANCOMYCIN HCL125 MG PO (09:36)
[2021-02-08 14:11] VITALS: BP 124/61
[2021-02-08 16:23] VITALS: BP 124/61
[2021-02-08 18:52] VITALS: BP 124/61
[2021-02-09] MEDS ORDERED: VANCOMYCIN HCL125 MG PO (12:33)
== END 2021-02-08 18:20 | disposition home health service (06) | DRG 371 ==
LOC: M.ERS 18:14 → M.TBA-ER 23:29 → M.2W 23:29
PROVIDERS: Emergency Medicine; Internal Medicine; ADMIT Family Medicine; ATTEND Family Medicine
DX: A04.9 Bacterial intestinal infection, unspecified (principal); N18.6 End stage renal disease; I12.0 Hypertensive chronic kidney disease with stage 5 chronic kidney disease or end stage renal disease; N39.0 Urinary tract infection, site not specified; T86.12 Kidney transplant failure; E11.22 Type 2 diabetes mellitus with diabetic chronic kidney disease; E88.09 Other disorders of plasma-protein metabolism, not elsewhere classified; E03.9 Hypothyroidism, unspecified; E87.6 Hypokalemia; E21.3 Hyperparathyroidism, unspecified; E55.9 Vitamin D deficiency, unspecified; Z20.822 Contact with and (suspected) exposure to COVID-19; Z96.642 Presence of left artificial hip joint; Y83.8 Other surgical procedures as the cause of abnormal reaction of the patient, or of later complication, without mention of misadventure at the time of the procedure; Z90.710 Acquired absence of both cervix and uterus; Z98.891 History of uterine scar from previous surgery; Z79.4 Long term (current) use of insulin; Z79.899 Other long term (current) drug therapy; Z88.1 Allergy status to other antibiotic agents; Z88.0 Allergy status to penicillin; Z88.8 Allergy status to other drugs, medicaments and biological substances; Z99.2 Dependence on renal dialysis; Y92.89 Other specified places as the place of occurrence of the external cause

== ENCOUNTER → 2021-02-18 | Outpatient (CLI) | payer MEDICARE, MEDICAID ==
[~2021-02-18] MED LIST changes: +MACROBID 100 M100 MG PO
== END ==
LOC: M.WC 10:00
PROVIDERS: ATTEND Family Medicine
DX: E11.622 Type 2 diabetes mellitus with other skin ulcer (principal); I70.238 Atherosclerosis of native arteries of right leg with ulceration of other part of lower leg; L97.812 Non-pressure chronic ulcer of other part of right lower leg with fat layer exposed; S81.801A Unspecified open wound, right lower leg, initial encounter; E11.65 Type 2 diabetes mellitus with hyperglycemia; E11.22 Type 2 diabetes mellitus with diabetic chronic kidney disease; I12.0 Hypertensive chronic kidney disease with stage 5 chronic kidney disease or end stage renal disease; N18.6 End stage renal disease; Z99.2 Dependence on renal dialysis; Z96.642 Presence of left artificial hip joint; Z79.4 Long term (current) use of insulin; X58.XXXA Exposure to other specified factors, initial encounter; Y93.89 Activity, other specified; Y92.89 Other specified places as the place of occurrence of the external cause; Y99.8 Other external cause status

== ENCOUNTER → 2021-02-25 | Outpatient (CLI) | payer MEDICARE, MEDICAID | LOC: M.WC 11:00 | PROVIDERS: ATTEND Family Medicine | DX: I70.238 Atherosclerosis of native arteries of right leg with ulceration of other part of lower leg (principal); L97.812 Non-pressure chronic ulcer of other part of right lower leg with fat layer exposed; S81.801D Unspecified open wound, right lower leg, subsequent encounter; E11.42 Type 2 diabetes mellitus with diabetic polyneuropathy; E11.65 Type 2 diabetes mellitus with hyperglycemia; E11.22 Type 2 diabetes mellitus with diabetic chronic kidney disease; I12.0 Hypertensive chronic kidney disease with stage 5 chronic kidney disease or end stage renal disease; N18.6 End stage renal disease; Z79.4 Long term (current) use of insulin; Z79.899 Other long term (current) drug therapy; Z99.2 Dependence on renal dialysis; X58.XXXD Exposure to other specified factors, subsequent encounter ==

== ENCOUNTER 2021-03-08 14:08 | Inpatient (IN) | payer MEDICARE, MEDICAID ==
[~2021-03-08] VITALS: Ht 167.6 cm; Wt 70.3 kg
[~2021-03-08 14:08] MED LIST changes: +EFFEXOR XR75 MG PO; -VENLAFAXIN75 MG/1 T2 PO
[2021-03-08 14:12] VITALS: BP 139/79
[2021-03-08 15:16] LABS: ABSOLUTE BASOPHILS 0.1 thou/uL (0.0-0.2); ABSOLUTE EOSINOPHILS 0.1 thou/uL (0.0-0.7); ABSOLUTE LYMPHOCYTES 3.7 thou/uL (0.8-5.3); ABSOLUTE MONOCYTES 0.5 thou/uL (0.0-1.2); ABSOLUTE NEUTROPHILS 5.2 thou/uL (1.6-8.1); BASOPHILS 1.3 %; EOSINOPHILS 1.1 %; HEMATOCRIT 44.9 % (37.0-47.0); HEMOGLOBIN 14.9 gm/dL (12.0-15.0); LYMPHOCYTES 38.2 %; MCH 31.4 pg (26.0-34.0); MCHC 33.2 g/dL (28.0-37.0); MCV 94.5 fL (80.0-100.0); MONOCYTES 5.4 %; MPV 7.4 fl. (7.2-11.1); NUCLEATED RBCS 0 /100WBC; PLATELET COUNT* 260 thou/uL (150-400); RBC 4.75 mil/uL (4.20-5.00); RDW-CV 18.7 % (10.5-14.5); WBC 9.6 thou/uL (4.0-11.0)
[2021-03-08 15:34] LABS: ALBUMIN 2.6 g/dL (3.4-5.0); CALCIUM 8.9 mg/dL (8.5-10.1); CREATININE 9.9 mg/dL (0.6-1.3); POTASSIUM 4.6 mmol/L (3.5-5.1); TOTAL BILIRUBIN 0.4 mg/dL (<0.1-1.0); TOTAL PROTEIN 7.6 g/dL (6.4-8.2)
--- NOTE | 2021-03-08 17:07 | EKG ---
[place] [address] ELECTROCARDIOGRAM REPORT Name: RADHA HOLDER Margarette Room: [place] [address] ADM IN .R.#: [id number] Admission: 03/08/21 Attend Phys: Ace Banerjee Discharge: Date of : 49 Date of Service: 03/08/21 1511 Report #: [id number] THIS REPORT FOR: //name// [facility] ED Test Date: 2021-03-08 Test Time: 15:11:12 Pat Name: RADHA HOLDER Department: Room: [facility] Gender: F Top Cleaner: GOMEZ : 1945 Requested By: Jefferson Hoyt Order Number: [id number] MD: Se Hough Measurements Intervals [place] Rate: 77 P: 48 NE: 178 QRS: -3 QRSD: 90 T: 100 QT: 411 QTc: 466 Interpretive Statements Sinus rhythm Nonspecific T abnormalities, lateral leads Compared to ECG 11/09/2020 17:39:57 T-wave abnormality now present Atrial abnormality no longer present Possible ischemia no longer present Electronically Signed On 03-08-2021 17:07:29 CDT by Se Hough [email or web address] <ELECTRONICALLY SIGNED> By: Se Hough MD, FACC 03/08/21 1707 1511 151 Se Hough MD, FACC /EPI
[2021-03-08 20:00] VITALS: BP 141/61
[2021-03-08 20:52] VITALS: BP 141/61
[2021-03-09] VITALS (7 sets, daily range): BP systolic 98–139; BP diastolic 41–73
--- NOTE | 2021-03-09 06:10 | NUR ---
PT ALERT AND ORIENTED, ROOM AIR, REPORTS NO PAIN OR NAUSEA. SHE IS A PARAPALEGIC AND DEPENDS ON WHEELCHAIR AT HOME, STATES SHE LIVES AT HOME WELL ALONE. SHE SAYS HER LEG WAS BROKEN YEARS AGO AND NEVER HEALED CORRECTLY. SHE HAS A PERITONEAL DIALYSIS CATHETER LLQ. SHE HAS A WOUND ON HER RIGHT OUTER LOWER EXTREMETY. THERE IS A PIC IN THE CHART. I APPLIED A NEW BANDAGE TO THE AREA WITH VASOLINE GAUZE. BEDREST,Q2 TURN. SHE HAD CDIFF IN OCTOBER AND REPORTING DIRRHEA NOW. SHE IS CONTACT PRECAUTIONS AND IS AWARE WE ARE NEEDING TO COLLECT A STOOL AND URINE SAMPLE. SHE IS ANURIC. SHE RECEIVED FLUIDS SCHEDULED. WILL CONTINUE TO MONITOR.
--- NOTE | 2021-03-09 09:28 | NUR ---
WOUND NURSE: PATIENT SEEN TO ADDRESS WOUND ON RIGHT LATERAL LOWER LEG. MEASURES 4.5 X X 2.0 X 0.3 CM. THE WOUND UNDERMINES BY 0.5 CM AT 1 TO 2 O'CLOCK. THERE IS PINK GRANULATION TISSUE IN THE WOUND BED AND THIN LAYER OF SCAR TISSUE ALONG THE WOUND EDGES. SMALL AMOUNT OF SEROUSANGUINOUS DRAINAGE ON THE WOUND AND OLD DRESSING. CLEANSED WITH WOUND CLEANSER AND GAUZE. APPLIED SKIN PREP TO INTACT PERIWOUND TISSUE. TUCKED SMALL PIECE OF AQUACEL AG INTO AREA OF UNDERMING, THEN COVERED REMAINING WOUND BED WITH ADDITIONAL AQUACEL AG, THEN COVERED WITH BORDERED FOAM DRESSING. THIS WAS TOLERATED WELL BY THE PATIENT. PATIENT INSTRUCTED ON MEASURES TO PROMOTE HEALIN AND PREVENT COMPLICATIONS. REVIEWED NOTE FROM WOUND EXPERT EARLIER THIS MONTH AND NOTED ABNORMAL QUANTAFLOW READINGS. DR. LOTT TO ORDER ARTERIAL STUDY A RESULT.
[2021-03-09 10:08] LABS: ABSOLUTE BASOPHILS 0.1 thou/uL (0.0-0.2); ABSOLUTE EOSINOPHILS 0.3 thou/uL (0.0-0.7); ABSOLUTE LYMPHOCYTES 3.1 thou/uL (0.8-5.3); ABSOLUTE MONOCYTES 0.4 thou/uL (0.0-1.2); ABSOLUTE NEUTROPHILS 4.1 thou/uL (1.6-8.1); BASOPHILS 0.8 %; EOSINOPHILS 3.4 %; HEMATOCRIT 41.4 % (37.0-47.0); HEMOGLOBIN 13.7 gm/dL (12.0-15.0); LYMPHOCYTES 38.8 %; MCH 31.1 pg (26.0-34.0); MCHC 33.1 g/dL (28.0-37.0); MCV 94.1 fL (80.0-100.0); MONOCYTES 5.2 %; MPV 7.3 fl. (7.2-11.1); NUCLEATED RBCS 0 /100WBC; PLATELET COUNT* 200 thou/uL (150-400); POLYS 51.8 %; RDW-CV 18.4 % (10.5-14.5); WBC 7.9 thou/uL (4.0-11.0)
[2021-03-09 10:11] LABS: CALCIUM 7.7 mg/dL (8.5-10.1); CREATININE 9.6 mg/dL (0.6-1.3); POTASSIUM 4.3 mmol/L (3.5-5.1)
--- NOTE | 2021-03-09 10:44 | NUR ---
DEJA S/W PT WHO INDICATED SHE LIVES ALONE. HER DTR COME OVER NIGHTLY TO ASSIST PT WITH [facility] SET UP. [facility] AND GOES TO [facility] 1X/MO. PT IS W/C BOUND, DOES NOT AMBULATE. PT HAS ELECTRIC W/C. PT IS CURRENT W/AMEDYSIS . CM NOTIFIED PURA W/AMEDYSIS OF PT'S ADMISSION. PT HAS HX WITH [facility] @ [facility] IN MAY 2020.
--- NOTE | 2021-03-09 16:43 | NUR ---
PATIENT TURNING SELF IN BED. IVF INFUSING ORDERED, RATE DECREASED TO 50MLS/HR PER DR. LOTT'S ORDERS. INSULIN HELD WHEN BLOOD SUGAR ONLY 70'S, DR. LOTT NOTIFIED AND STATED TO HOLD FOR LAB VALUE. PATIENT HAD A GOOD APPETITE THIS SHIFT. CDIFF CAME BACK NEGATIVE, DR. LOTT NOTIFIED THROUGH YOU CALL AND WINTER RAMÍREZ'D. PERITONEAL DIALYSIS SET UP AT THIS TIME. WOUND CARE SAW PATIENT THIS AM AND DRESSING PLACED TO RIGHT CALF.
[2021-03-10 05:18] VITALS: BP 116/61
--- NOTE | 2021-03-10 07:15 | NUR ---
CHANGHE OF SHIFT BEDSIDE REPORT GIVEN PATIENT SEEN AT BEDSIDE, IN BED ON PD
[2021-03-10 08:00] VITALS: BP 116/59
--- NOTE | 2021-03-10 09:17 | CON ---
[address] [address] CONSULTATION Name: RADHA HOLDER Room: [address] IN .R.#: [id number] Admission: 03/08/21 Attend Phys: Medardo Deras Discharge: Date of : 49 Report #: [id number] THIS REPORT FOR: cc: Desmond Ruffin,Tamera Romero MD ~ DATE OF CONSULTATION: 03/09/2021 NEPHROLOGY CONSULTATION CONSULTING PHYSICIAN: Ace Banerjee DO REASON FOR NEPHROLOGY CONSULTATION: ESRD, for maintenance of peritoneal dialysis. REASON FOR ADMISSION: Diarrhea, abdominal pain. CHIEF COMPLAINT: Diarrhea, abdominal pain. 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 The patient was being treated for C. difficile infection, which she contracted in October of this year and she ran out of her vancomycin and the pharmacy would not fill it because they had asked for her to get her stool rechecked. Her diarrhea started about a week ago and she did have multiple bowel movements throughout the day. Her abdominal pain is better. She has no fevers. She did her peritoneal dialysis day before yesterday. She is overall feeling a little bit better today. ALLERGIES: TO PENICILLINS, QUINOLONES, ZINC, CLINDAMYCIN, CIPROFLOXACIN. REVIEW OF SYSTEMS: As mentioned in history of present illness, otherwise 10-point review of systems are negative. HOME MEDICATIONS: Include famotidine; levothyroxine; atorvastatin; p.o. vancomycin, which she ran out of; fenofibrate; labetalol; acetaminophen; cholecalciferol; venlafaxine; NovoLog; citalopram; calcitriol. PAST MEDICAL AND SURGICAL HISTORY: Includes diabetes type 2; history of kidney transplant in 1998, failed about 11 months ago; she is on peritoneal dialysis now; hysterectomy; parathyroidectomy; chronic edema in the leg; in 1982; left total hip replacement; plate in the left leg; hypertension; obesity. FAMILY HISTORY: [place] [address] CONSULTATION Name: RADHA HOLDER Room: [address] IN [facility].#: [id number] Admission: 03/08/21 Attend Phys: Medardo Deras Discharge: Date of : 49 Report #: [id number] SOCIAL HISTORY: She does not smoke or drink alcohol or use illicit drugs. PHYSICAL EXAMINATION: VITAL SIGNS: Blood pressure is 129/63, temperature 36.4, pulse rate is 68, respiratory rate is 18, and her pulse ox was 97% on room air. GENERAL: She looks weak, but otherwise she is awake, alert, and oriented x 3. HEAD AND EYES: Atraumatic, normocephalic. Conjunctivae are normal. EARS, NOSE, AND THROAT: Normal ears and nose. Mucous membranes seem to be dry. NECK: There is no JVD. CHEST: Bilaterally clear to auscultation anteriorly. No crackles or wheezing. CARDIOVASCULAR: S1, S2 normal. ABDOMEN: Soft, nondistended, nontender and PD catheter is intact. The site of PD catheter looks clean. There is no erythema or drainage. EXTREMITIES: Lower extremities: There is about 1+ ankle edema. There is a wound on the anterior aspect of right leg, which has a clean red base. PSYCHIATRIC: Mood and affect seems to be normal. NEUROLOGIC: Neurological function grossly seems to be intact. LABORATORY DATA: WBC is 9.6, hemoglobin is 14.9. Sodium was 136, BUN was 58, potassium was 4.6. Other labs were reviewed. IMAGING: Abdominopelvic CT and chest x-ray were reviewed. ASSESSMENT AND PLAN: 1. End-stage renal disease, on peritoneal dialysis, CCPD. 2. Weakness, diarrhea, abdominal pain. Abdominal pain has now resolved, no fevers, recent Clostridium difficile colitis. 3. Dyslipidemia. 4. Type 2 diabetes. Primary team is treating. 5. Hypertension, seems to be controlled. 6. Right lower extremity wound. Wound care is following. Defer to primary team and wound care. 7. Hypothyroidism. 8. Secondary hyperparathyroidism. PLAN: 1. Clostridium difficile is being checked for diarrhea. We will defer management of diarrhea to her primary team. 2. She will get her peritoneal dialysis done tonight. She is not having any abdominal pain now, I do not think there is any need for testing the peritoneal fluid at this moment. Her peritoneal fluid also has been clear at home. 3. We will use 1.5% dextrose tonight because she seems to be intravascularly volume depleted [place] [address] CONSULTATION Name: RADHA HOLDER Room: [facility] IN .R.#: [id number] Admission: 03/08/21 Attend Phys: Medardo Deras Discharge: Date of : 49 Report #: [id number] 4. I have stopped the fenofibrate because that is contraindicated for ESRD. Thank you for this consultation. We will follow with you for dialysis needs. Discussed with the patient. <ELECTRONICALLY SIGNED> By: Tamera Mast MD 03/10/21 0917 0853 [id number] Mast MD /nt
--- NOTE | 2021-03-10 09:32 | NUR ---
WOUND NURSE: WENT TO SEE PATIENT REGARDING RIGHT TIBIAL WOUND AND DRESSING IS INTACT. HOWEVER, NOTED THAT PATIENT HAD A BANDAID ON HER LEFT KNEE. PATIENT REPORTS SHE ACCIDENTLY SCRAPED HER KNEE WHILE HAVING A CT OF HER ABD DONE. MEASURES 1.7 X 0.7 X 0.1 CM. CONTAINS RED, NONGRANULATING TISSUE IN THE WOUND BED. NO PERIOWOUND REDNESS, WARMTH, OR INDRUATTION NOTED. MINIMAL AMOUNT OS SEROUSANGUINOUS DRAINAGE PRESENT. CLEANSED WITH WOUND CLEANSER AND GAUZE. APPLIED SKIN PREP TO INTACT PERIWOUND TISSUE, THEN APPLIED XEROFORM GAUZE TO WOUND AND COVERED WITH A BORDERED FOAM DRESSING. PLAN TO CHANGE DRESSIN 3X/WEEK AND PRN.
[2021-03-10 12:01] VITALS: BP 138/75
[2021-03-10 13:12] VITALS: BP 138/75
--- NOTE | 2021-03-10 14:30 | NUR ---
DISCHARGE TO HOME IV AND HEART MONITOR REMOVED PERSONAL BELONGINGS RETURNED DISCHARGE REVIEWED AND PAPERWORK GIVEN PATIENT ASSISTED OUT VIA MOTORIZED WC TO WAITING CAR
--- NOTE | 2021-03-10 15:39 | NUR ---
EDJA Conner/BRANDIE FROM [facility] TO PROVID UPDATE. DEJA FAXED ORDERS TO [facility] AT [phone]
== END 2021-03-10 14:45 | disposition home health service (06) | DRG 391 ==
LOC: M.ERS 14:08 → M.2W 15:38 → M.TBA-ER 15:38 → M.2W 20:45
PROVIDERS: Family Medicine; ADMIT Internal Medicine; ATTEND Internal Medicine
PROC: 3E1M39Z Irrigation of Peritoneal Cavity using Dialysate, Percutaneous Approach (ICD-10-PCS; principal; 2021-03-09)
DX: K52.9 Noninfective gastroenteritis and colitis, unspecified (principal); N18.6 End stage renal disease; N17.9 Acute kidney failure, unspecified; T86.12 Kidney transplant failure; I12.0 Hypertensive chronic kidney disease with stage 5 chronic kidney disease or end stage renal disease; E86.0 Dehydration; E03.9 Hypothyroidism, unspecified; E88.09 Other disorders of plasma-protein metabolism, not elsewhere classified; E11.22 Type 2 diabetes mellitus with diabetic chronic kidney disease; Y83.8 Other surgical procedures as the cause of abnormal reaction of the patient, or of later complication, without mention of misadventure at the time of the procedure; E78.5 Hyperlipidemia, unspecified; Z96.642 Presence of left artificial hip joint; Z20.822 Contact with and (suspected) exposure to COVID-19; Z99.2 Dependence on renal dialysis; Y92.89 Other specified places as the place of occurrence of the external cause; Z90.710 Acquired absence of both cervix and uterus; Z79.4 Long term (current) use of insulin; Z79.899 Other long term (current) drug therapy; Z88.0 Allergy status to penicillin; Z88.1 Allergy status to other antibiotic agents; Z88.8 Allergy status to other drugs, medicaments and biological substances

== ENCOUNTER 2021-03-16 23:09 | Emergency (ER) | payer MEDICARE, MEDICAID ==
[~2021-03-16] VITALS: Ht 167.6 cm; Wt 70.3 kg
[2021-03-16 23:33] VITALS: BP 127/55
== END 2021-03-17 00:21 | disposition left against medical advice (07) ==
LOC: M.ERS 23:09
DX: Z53.21 Procedure and treatment not carried out due to patient leaving prior to being seen by health care provider (principal)

== ENCOUNTER → 2021-04-01 | Outpatient (CLI) | payer MEDICARE, MEDICAID | LOC: M.WC 10:52 | PROVIDERS: ATTEND Family Medicine | DX: I70.238 Atherosclerosis of native arteries of right leg with ulceration of other part of lower leg (principal); L97.812 Non-pressure chronic ulcer of other part of right lower leg with fat layer exposed; S81.801D Unspecified open wound, right lower leg, subsequent encounter; E11.42 Type 2 diabetes mellitus with diabetic polyneuropathy; E11.65 Type 2 diabetes mellitus with hyperglycemia; E11.22 Type 2 diabetes mellitus with diabetic chronic kidney disease; I12.0 Hypertensive chronic kidney disease with stage 5 chronic kidney disease or end stage renal disease; N18.6 End stage renal disease; Z79.4 Long term (current) use of insulin; Z99.2 Dependence on renal dialysis; X58.XXXD Exposure to other specified factors, subsequent encounter ==

== ENCOUNTER 2021-04-19 19:57 | Inpatient (IN) | payer MEDICARE, MEDICAID ==
[~2021-04-19] VITALS: Ht 167.6 cm; Wt 71.7 kg
[2021-04-19 20:03] VITALS: BP 176/104
[2021-04-19] MEDS ORDERED: MYCOPHENOLIC A360 MG PO (20:20)
[2021-04-19] MEDS ORDERED: PREDNISONE 10 M10 MG PO (20:24)
[2021-04-19] MEDS ORDERED: LABETALOL HCL100 MG PO (20:28)
[2021-04-19] MEDS ORDERED: LASIX 40 MG TAB40 MG PO (20:29)
[2021-04-19] MEDS ORDERED: TRESIBA100 UNIT/1 SUBQ (20:31)
[2021-04-19] MEDS ORDERED: ROCALTROL0.25 MCG PO (20:51)
[2021-04-19] MEDS ORDERED: FENOFIBRATE54 MG PO (20:52)
[2021-04-19 20:59] LABS: ABSOLUTE BASOPHILS 0.1 thou/uL (0.0-0.2); ABSOLUTE LYMPHOCYTES 1.5 thou/uL (0.8-5.3); ABSOLUTE MONOCYTES 0.3 thou/uL (0.0-1.2); ABSOLUTE NEUTROPHILS 6.9 thou/uL (1.6-8.1); BASOPHILS 0.6 %; HEMATOCRIT 52.5 % (37.0-47.0); HEMOGLOBIN 16.9 gm/dL (12.0-15.0); MCH 30.2 pg (26.0-34.0); MCHC 32.2 g/dL (28.0-37.0); MCV 93.7 fL (80.0-100.0); MONOCYTES 3.3 %; MPV 7.3 fl. (7.2-11.1); NUCLEATED RBCS 0 /100WBC; PLATELET COUNT* 359 thou/uL (150-400); POLYS 79.1 %; RBC 5.61 mil/uL (4.20-5.00); RDW-CV 16.1 % (10.5-14.5); WBC 8.7 thou/uL (4.0-11.0)
[2021-04-19 21:11] LABS: CALCIUM 8.7 mg/dL (8.5-10.1); CREATININE 11.8 mg/dL (0.6-1.3); POTASSIUM 6.3 mmol/L (3.5-5.1)
[2021-04-19 21:20] LABS: ALBUMIN 2.4 g/dL (3.4-5.0); MAGNESIUM 1.8 mg/dL (1.8-2.4); TOTAL BILIRUBIN 0.4 mg/dL (<0.1-1.0); TOTAL PROTEIN 7.1 g/dL (6.4-8.2)
[2021-04-19 22:58] LABS: BE -2.2 mmol/L (-2 to +3); PCO2 VENOUS 38.1 mmHg (41.0-51.0); PO2 VENOUS 73.8 mmHg (35.0-45.0)
[2021-04-20] VITALS (7 sets, daily range): BP systolic 145–183; BP diastolic 34–100
--- NOTE | 2021-04-20 10:12 | EKG ---
[place] [address] ELECTROCARDIOGRAM REPORT Name: RADHA HOLDER Room: [address] ADM IN .R.#: [id number] Admission: 04/19/21 Attend Phys: Misty Acosta, Discharge: Date of : 49 Date of Service: 04/19/212001 Report #: [id number] THIS REPORT FOR: //name// [facility] ED Test Date: 2021-04-19 Test Time: 20:02:12 Pat Name: RADHA HOLDER Department: Room: [facility] Gender: F [employer]: [place] : 1945 Requested By: Janae Saravia Order Number: [id number] MD: Jerardo Choudhary Measurements Intervals [place] Rate: 87 P: 43 MN: 201 QRS: -21 QRSD: 97 T: 89 QT: 394 QTc: 474 Interpretive Statements Sinus rhythm Borderline left axis deviation Low voltage, precordial leads Consider anterior infarct Compared to ECG 03/08/2021 15:11:12 Low QRS voltage now present T-wave abnormality no longer present Electronically Signed On 04-20-2021 10:12:39 CDT by Jerardo Choudhary [email or web address] <ELECTRONICALLY SIGNED> By: Jerardo Choudhary MD, FACC 04/20/21 1012 01 01 Jerardo Choudhary MD, FAC /EPI
[2021-04-21] VITALS (8 sets, daily range): BP systolic 110–154; BP diastolic 46–73
[2021-04-21 04:55] LABS: CALCIUM 8.6 mg/dL (8.5-10.1); CREATININE 11.7 mg/dL (0.6-1.3); POTASSIUM 5.6 mmol/L (3.5-5.1)
[2021-04-21 05:17] LABS: ABSOLUTE LYMPHOCYTES 2.4 thou/uL (0.8-5.3); ABSOLUTE MONOCYTES 0.6 thou/uL (0.0-1.2); ABSOLUTE NEUTROPHILS 8.4 thou/uL (1.6-8.1); BASOPHILS 0.2 %; EOSINOPHILS 0.1 %; HEMATOCRIT 44.9 % (37.0-47.0); LYMPHOCYTES 20.9 %; MCH 30.4 pg (26.0-34.0); MCHC 31.8 g/dL (28.0-37.0); MCV 95.3 fL (80.0-100.0); MPV 8.1 fl. (7.2-11.1); NUCLEATED RBCS 0 /100WBC; PLATELET COUNT* 287 thou/uL (150-400); POLYS 73.8 %; RDW-CV 16.3 % (10.5-14.5); WBC 11.5 thou/uL (4.0-11.0)
[2021-04-21 05:21] LABS: HEMOGLOBIN 14.3 gm/dL (12.0-15.0)
[2021-04-22 00:52] VITALS: BP 131/55
[2021-04-22 04:20] LABS: HEMATOCRIT 45.6 % (37.0-47.0); HEMOGLOBIN 14.4 gm/dL (12.0-15.0); MCH 30.5 pg (26.0-34.0); MCHC 31.6 g/dL (28.0-37.0); MCV 96.7 fL (80.0-100.0); MPV 7.3 fl. (7.2-11.1); RBC 4.72 mil/uL (4.20-5.00); RDW-CV 16.4 % (10.5-14.5); WBC 7.9 thou/uL (4.0-11.0)
[2021-04-22 04:28] LABS: CALCIUM 7.8 mg/dL (8.5-10.1); CREATININE 11.1 mg/dL (0.6-1.3); POTASSIUM 5.1 mmol/L (3.5-5.1)
[2021-04-22 04:37] VITALS: BP 109/52
[2021-04-22 07:36] VITALS: BP 115/87
[2021-04-22 12:00] VITALS: BP 99/55
[2021-04-22 12:35] LABS: BF RBC <1000 /mm3
[2021-04-22 12:38] LABS: TOTAL CELL COUNT 81 /mm3
[2021-04-22 12:40] LABS: CLARITY SLIGHTLY HAZY; TOTAL VOLUME 100 ml
[2021-04-22 13:20] LABS: BF LYMPHOCYTES 62 %; BF MONOCYTES 30 %; BF POLYS 8 %; BF TISSUE 3 /100 WBC
[2021-04-22 13:21] LABS: SOURCE PERITONEAL
[2021-04-22 20:00] VITALS: BP 96/47
[2021-04-22 23:44] VITALS: BP 109/31
[2021-04-23] VITALS (25 sets, daily range): BP systolic 84–117; BP diastolic 30–63
[2021-04-23 07:36] LABS: HEMATOCRIT 46.4 % (37.0-47.0); HEMOGLOBIN 14.8 gm/dL (12.0-15.0); MCH 30.5 pg (26.0-34.0); MCHC 31.8 g/dL (28.0-37.0); MCV 95.8 fL (80.0-100.0); MPV 7.6 fl. (7.2-11.1); RBC 4.84 mil/uL (4.20-5.00); RDW-CV 16.3 % (10.5-14.5); WBC 8.8 thou/uL (4.0-11.0)
[2021-04-23 07:45] LABS: CALCIUM 7.7 mg/dL (8.5-10.1)
--- NOTE | 2021-04-23 11:17 | CON ---
[address] [address] CONSULTATION Name: RADHA HOLDER Room: [address] IN .R.#: [id number] Admission: 04/19/21 Attend Phys: Misty Acosta MD Discharge: Date of : 49 Report #: [id number] THIS REPORT FOR: cc: Desmond Ruffin,Tamera Romero MD ~ DATE OF CONSULTATION: 04/20/2021 NEPHROLOGY CONSULTATION CONSULTING PHYSICIAN: Misty Acosta MD REASON FOR CONSULTATION: ESRD for maintenance of peritoneal dialysis. REASON FOR ADMISSION: Vomiting. HISTORY OF PRESENT ILLNESS: This is a 75-year-old female with ESRD on CCPD, came in with vomiting. She missed her dialysis treatment on Monday night as well as Monday night because of vomiting. When she came in, her potassium was 6.3. Abdominal imaging showed possible small-bowel obstruction and she is being managed conservatively for now. General surgery has been consulted. Potassium is at 5.4 this morning. She has not had a bowel movement in some time, but her peritoneal fluid has been clear. She is feeling better today. ALLERGIES: PENICILLINS, QUINOLONES, ZINC AND CLINDAMYCIN. REVIEW OF SYSTEMS: As mentioned in history of present illness, she is very weak and otherwise 10-point review of systems are negative. PAST MEDICAL AND SURGICAL HISTORY: Includes diabetes type 2. She has a history of kidney transplant in 1998. She has ESRD, on PD at the moment; hysterectomy, parathyroidectomy, chronic edema, in 1982, left total hip replacement in 2008, pain in left leg, hypertension, obesity. HOME MEDICATIONS: Include Effexor, mycophenolate sodium, prednisone, labetalol, furosemide, insulin Tresiba, calcitriol, fenofibrate, famotidine, levothyroxine, atorvastatin, acetaminophen, cholecalciferol, insulin aspart, citalopram. PHYSICAL EXAMINATION: VITAL SIGNS: Blood pressure is 147/100, respiratory rate was 16, pulse rate was 95, temperature was 36.4, pulse ox was 90%, on no oxygen. GENERAL: She was awake and alert and oriented x 3. HEAD AND EYES: Atraumatic and normocephalic. Conjunctivae normal. EARS, NOSE AND THROAT: Normal ears and nose. He has NG tube in place with dark secretions coming out and [place] [address] CONSULTATION Name: RADHA HOLDER Room: [address]#: [id number] Admission: 04/19/21 Attend Phys: Misty Acosta MD Discharge: Date of : 49 Report #: [id number] NECK: There is no JVD. CHEST: Bilaterally decreased breath sounds anteriorly. CARDIOVASCULAR: S1, S2 normal. No murmurs. ABDOMEN: Soft, nondistended, nontender. PD catheter is intact and quite lower quadrant. Exit site looks good. EXTREMITIES: Lower extremities, there is no edema. NEUROLOGIC: Function grossly intact. PSYCHOLOGIC: Mood and affect seem to be normal. LABORATORY DATA: Hemoglobin is 16.9, potassium was 5.4, sodium was 136. Other labs are reviewed. IMAGING: Abdominal x-ray, abdominal pelvic CT scan and chest x-rays were reviewed. ASSESSMENT AND PLAN: 1. End-stage renal disease, on peritoneal dialysis, missed a couple of peritoneal dialysis treatments. 2. Hyperkalemia. 3. Small-bowel obstruction. 4. Hypertension. 5. History of kidney transplant. 6. Diabetes type 2. We will defer to Internal Medicine for management. PLAN: 1. We will hook her up to PD this evening. 2. She is n.p.o. currently, being treated for SBO as per surgery. 3. Her PD regimen tonight would be a dwell volume of 2 liters, five cycles. Each dwell is 1-1/2 hour long, we will use all 1.5% dextrose because she clinically looks dry. She is a little below her dry weight. Dry weight is 68 kilograms. Thank you. We will follow for her dialysis needs. <ELECTRONICALLY SIGNED> By: Tamera Mast MD 04/23/21 1117 1002 [id number] Mast MD /nt
[2021-04-24] VITALS (106 sets, daily range): BP systolic 49–200; BP diastolic 16–166
[2021-04-24 07:11] LABS: ABSOLUTE LYMPHOCYTES 2.7 thou/uL (0.8-5.3); ABSOLUTE MONOCYTES 0.6 thou/uL (0.0-1.2); ABSOLUTE NEUTROPHILS 7.6 thou/uL (1.6-8.1); BASOPHILS 0.2 %; EOSINOPHILS 0.1 %; HEMATOCRIT 36.5 % (37.0-47.0); MCH 30.8 pg (26.0-34.0); MCHC 32.3 g/dL (28.0-37.0); MCV 95.3 fL (80.0-100.0); MONOCYTES 5.1 %; MPV 8.2 fl. (7.2-11.1); NUCLEATED RBCS 0 /100WBC; PLATELET COUNT* 249 thou/uL (150-400); POLYS 69.6 %; RBC 3.83 mil/uL (4.20-5.00); RDW-CV 15.7 % (10.5-14.5); WBC 10.9 thou/uL (4.0-11.0)
[2021-04-24 07:16] LABS: HEMOGLOBIN 11.8 gm/dL (12.0-15.0)
[2021-04-24 07:33] LABS: ALBUMIN 1.7 g/dL (3.4-5.0); CALCIUM 6.3 mg/dL (8.5-10.1); CREATININE 11.1 mg/dL (0.6-1.3); POTASSIUM 4.4 mmol/L (3.5-5.1); TOTAL BILIRUBIN 0.3 mg/dL (<0.1-1.0); TOTAL PROTEIN 5.5 g/dL (6.4-8.2)
[2021-04-24 12:04] LABS: HEMOGLOBIN 11.6 gm/dL (12.0-15.0); MCH 30.9 pg (26.0-34.0); MCHC 32.1 g/dL (28.0-37.0); MCV 96.1 fL (80.0-100.0); MPV 8.1 fl. (7.2-11.1); RBC 3.75 mil/uL (4.20-5.00); RDW-CV 15.8 % (10.5-14.5); WBC 9.3 thou/uL (4.0-11.0)
[2021-04-24 12:11] LABS: CALCIUM 6.6 mg/dL (8.5-10.1); CREATININE 8.6 mg/dL (0.6-1.3); POTASSIUM 4.4 mmol/L (3.5-5.1)
[2021-04-24 12:14] LABS: MAGNESIUM 1.5 mg/dL (1.8-2.4); PHOSPHORUS* 6.3 mg/dL (2.5-4.9)
[2021-04-25] VITALS (48 sets, daily range): BP systolic 69–132; BP diastolic 14–63
[2021-04-25 08:12] LABS: ABSOLUTE EOSINOPHILS 0.1 thou/uL (0.0-0.7); ABSOLUTE LYMPHOCYTES 1.9 thou/uL (0.8-5.3); ABSOLUTE MONOCYTES 0.4 thou/uL (0.0-1.2); ABSOLUTE NEUTROPHILS 4.5 thou/uL (1.6-8.1); BASOPHILS 0.4 %; EOSINOPHILS 0.8 %; HEMATOCRIT 34.8 % (37.0-47.0); HEMOGLOBIN 11.2 gm/dL (12.0-15.0); LYMPHOCYTES 27.3 %; MCHC 32.2 g/dL (28.0-37.0); MCV 96.3 fL (80.0-100.0); MONOCYTES 6.4 %; MPV 8.3 fl. (7.2-11.1); NUCLEATED RBCS 0 /100WBC; PLATELET COUNT* 169 thou/uL (150-400); POLYS 65.1 %; RBC 3.61 mil/uL (4.20-5.00); RDW-CV 16.1 % (10.5-14.5); WBC 6.9 thou/uL (4.0-11.0)
[2021-04-25 08:24] LABS: ALBUMIN 1.6 g/dL (3.4-5.0); CALCIUM 6.3 mg/dL (8.5-10.1); CREATININE 9.4 mg/dL (0.6-1.3); POTASSIUM 4.4 mmol/L (3.5-5.1); TOTAL BILIRUBIN 0.4 mg/dL (<0.1-1.0); TOTAL PROTEIN 5.4 g/dL (6.4-8.2)
[2021-04-25 08:54] LABS: PREALBUMIN 11.9 mg/dL (18.0-35.7)
[2021-04-26] VITALS (49 sets, daily range): BP systolic 94–128; BP diastolic 37–63
[2021-04-26 07:52] LABS: ABSOLUTE EOSINOPHILS 0.1 thou/uL (0.0-0.7); ABSOLUTE MONOCYTES 0.5 thou/uL (0.0-1.2); ABSOLUTE NEUTROPHILS 5.4 thou/uL (1.6-8.1); BASOPHILS 0.2 %; EOSINOPHILS 1.5 %; HEMATOCRIT 34.7 % (37.0-47.0); HEMOGLOBIN 11.1 gm/dL (12.0-15.0); LYMPHOCYTES 24.9 %; MCH 31.2 pg (26.0-34.0); MCHC 32.1 g/dL (28.0-37.0); MCV 97.3 fL (80.0-100.0); MPV 9.4 fl. (7.2-11.1); NUCLEATED RBCS 0 /100WBC; PLATELET COUNT* 159 thou/uL (150-400); POLYS 67.4 %; RBC 3.56 mil/uL (4.20-5.00); RDW-CV 15.8 % (10.5-14.5)
[2021-04-26 08:07] LABS: CALCIUM 6.1 mg/dL (8.5-10.1); POTASSIUM 4.1 mmol/L (3.5-5.1)
--- NOTE | 2021-04-27 07:06 | OP ---
[facility] [address] [place] [address] OPERATIVE REPORT Name: RADHA HOLDER Room: [address] IN M.R.#: [id number] Admission: 04/19/21 Attend Phys: Misty Acosta MD Discharge: Date of : 49 Report #: [id number] THIS REPORT FOR: cc: Desmond Ruffin,Desmond Steward,David Fierro MD ~ DATE OF SURGERY: 04/23/2021 PREOPERATIVE DIAGNOSIS: Small-bowel obstruction. POSTOPERATIVE DIAGNOSIS: Small-bowel obstruction. OPERATIONS: 1. Diagnostic laparoscopy. 2. Exploratory laparotomy with lysis of adhesions. 3. Placement of right femoral vein temporary dialysis catheter. SURGEON: David Shepard MD ANESTHESIA: General. ESTIMATED BLOOD LOSS: Minimal. SPECIMENS: None. DESCRIPTION OF PROCEDURE: After informed consent was obtained, the patient was brought to the operating room and placed supine. SCDs were placed and working, preoperative antibiotics were administered, general anesthesia was induced. The abdomen was prepped and draped in the usual sterile fashion. A 10 mm incision was made in the epigastrium. Fascia was incised and a [place] trocar was placed. Pneumoperitoneum was established. Diagnostic laparoscopy was undertaken. I was able to see there was a significant amount of dilated small bowel, although I was not able to see the actual transition point. Therefore, I elected to remove the laparoscope. A midline incision was made in the epigastrium measuring approximately 10 cm. Fascia was incised. I was then able to exteriorize the small bowel. The small bowel was run proximally and distally from the cecum to the ligament of Treitz. In the distal jejunum, she had an adhesive band that was from the bowel to the mesentery that caused a stricture of the small bowel. This was the source of the obstruction. This was cut with cautery. This relieved the obstruction. I then placed the small bowel back into the abdomen. The fascia was closed with a running PDS suture. Skin was closed with drew. Sterile dressings were applied. The attention was then directed to the right groin. The right groin was prepped and draped in the usual sterile fashion with chlorhexidine. The right femoral vein was then cannulated. Wire was placed. Dilator was placed[place] [address] OPERATIVE REPORT Name: RADHA HOLDER Room: [address]#: [id number] Admission: 04/19/21 Attend Phys: Misty Acosta MD Discharge: Date of : 49 Report #: [id number] then placed. This was a 24 cm catheter. It flushed and ronna very easily with saline. Sterile dressings were applied. COMPLICATIONS: None. DISPOSITION: The patient was taken to recovery in satisfactory condition. <ELECTRONICALLY SIGNED> By: David Shepard MD 04/27/21 0706 1011 [id number] Shepard MD /nt
[2021-04-27 09:06] LABS: HEPATITIS B SURFACE AG Negative (Negative)
[2021-04-28] VITALS: BP 95/33
[2021-04-28 16:00] VITALS: BP 85/41
[2021-04-28 20:28] VITALS: BP 114/369
== END 2021-04-29 12:30 | DRG 335 ==
LOC: M.ERS 19:57 → M.TBA-ER 21:58 → M.2W 21:58 → M.ICU 04-23 13:47 → M.2W 04-26 20:15
PROVIDERS: Emergency Medicine; Family Medicine; Internal Medicine; Internal Medicine Critical Care Medicine; Internal Medicine Nephrology; Surgery; ADMIT Internal Medicine; ATTEND Internal Medicine
PROC: 3E1M39Z Irrigation of Peritoneal Cavity using Dialysate, Percutaneous Approach (ICD-10-PCS; principal; 2021-04-20)
PROC: 3E1M39Z Irrigation of Peritoneal Cavity using Dialysate, Percutaneous Approach (ICD-10-PCS; 2021-04-23)
PROC: 06HY33Z Insertion of Infusion Device into Lower Vein, Percutaneous Approach (ICD-10-PCS; 2021-04-23)
PROC: 0DNA0ZZ Release Jejunum, Open Approach (ICD-10-PCS; 2021-04-23)
PROC: 0DJW4ZZ Inspection of Peritoneum, Percutaneous Endoscopic Approach (ICD-10-PCS; 2021-04-23)
DX: K56.609 Unspecified intestinal obstruction, unspecified as to partial versus complete obstruction (principal); N18.6 End stage renal disease; I12.0 Hypertensive chronic kidney disease with stage 5 chronic kidney disease or end stage renal disease; Z94.0 Kidney transplant status; E87.5 Hyperkalemia; Z20.822 Contact with and (suspected) exposure to COVID-19; Z96.642 Presence of left artificial hip joint; E66.9 Obesity, unspecified; D75.1 Secondary polycythemia; E11.22 Type 2 diabetes mellitus with diabetic chronic kidney disease; I46.9 Cardiac arrest, cause unspecified; Z66 Do not resuscitate; Z51.5 Encounter for palliative care; Z90.710 Acquired absence of both cervix and uterus; Z68.25 Body mass index [BMI] 25.0-25.9, adult; Z88.1 Allergy status to other antibiotic agents; Z88.0 Allergy status to penicillin; Z88.8 Allergy status to other drugs, medicaments and biological substances; Z87.891 Personal history of nicotine dependence